=== PATIENT | male | born 1950 | race Caucasian/White ===

== ENCOUNTER → 2019-02-14 11:12 | Outpatient (CLI) | payer MEDICARE, OTHER, SELFPAY ==
[2019-02-14 16:14] LABS: Hemoglobin A1c 6.2 % (4.2-6.3)
[2019-02-14 16:24] LABS: ALB/GLOB Ratio 1.2 RATIO (0.9-2.4); AST(SGOT) 24 U/L (15-37); Alanine Aminotransfer ALT/SGPT 36 U/L (16-61); Albumin, Serum 3.9 g/dL (3.2-5.0); Alkaline Phosphatase 50 U/L (45-117); Anion Gap 6 (5-15); BUN 17 mg/dL (7-18); BUN/Creat Ratio 18.2 RATIO (10-20); Calcium,Total 9.2 mg/dL (8.5-10.1); Chloride 107 mmol/L (98-107); Cholesterol 225 mg/dL (200); Creatinine, Serum 0.93 mg/dL (0.70-1.30); EST Glomerular Filtration Rate 86 mL/min (>60); Est Glom Filt Rate - Afr Amer 104 mL/min (>60); Globulin 3.2 g/dL (2.2-4.2); Glucose 99 mg/dL (74-106); High Density Lipoprotein 44 mg/dL; Potassium 4.3 mmol/L (3.5-5.1); Protein, Total 7.1 g/dL (6.4-8.2); Sodium Level 141 mmol/L (136-145); Triglycerides 154 mg/dL; Very Low Density Lipoprotein 31 mg/dL (5-40)
== END ==
PROVIDERS: Visit Provider Family Medicine
DX: E78.5 Hyperlipidemia, unspecified (principal); R73.01 Impaired fasting glucose
CPT/HCPCS: 36415; 80053; 80061; 83036

== ENCOUNTER → 2020-08-04 09:05 | Outpatient (CLI) | payer MEDICARE, OTHER, SELFPAY ==
[2020-08-04 10:28] LABS: Absolute Lymphocyte Count 1.22 X10^3/uL (0.83-4.51); Absolute Neutrophil Count 3.1 X10^3/uL (2.0-7.7); Basophil# 0.02 X10^3/uL; Basophil% 0.4 % (0-1); Eosinophil# 0.09 X10^3/uL; Eosinophils% 1.8 % (0-5); Hematocrit 45.7 % (40-54); Hemoglobin 14.7 g/dL (13.0-16.5); Lymphocyte # 1.22 X10^3/ul (4.0); Lymphocyte % 24.3 % (19-41); Mean Corp Hgb Conc 32.2 g/dL (32-36); Mean Corpuscular Hgb 32.2 pg (27.0-32.0); Mean Corpuscular Volume 100.2 fL (80-94); Mean Platelet Vol. 9.3 fl (6.2-12.0); Monocyte# 0.54 X10^3/uL; Monocyte% 10.8 % (0-10); NRBC Flagged by Analyzer 0 % (0-5); Neutrophil # 3.14 X10^3/uL (2.7-7.7); Neutrophil % 62.5 % (47-70); Platelet Count 227 K/mm3 (150-450); RBC Distribution Width SD 48.7 fl (35.1-43.9); Red Blood Count 4.56 M/mm3 (4.6-6.2)
[2020-08-04 11:02] LABS: ALB/GLOB Ratio 1.1 RATIO (0.9-2.4); AST(SGOT) 23 U/L (15-37); Alanine Aminotransfer ALT/SGPT 35 U/L (16-61); Albumin, Serum 3.9 g/dL (3.2-5.0); Alkaline Phosphatase 57 U/L (45-117); Anion Gap 6 (5-15); BUN 14 mg/dL (7-18); BUN/Creat Ratio 14.9 RATIO (10-20); Calcium,Total 9.4 mg/dL (8.5-10.1); Chloride 105 mmol/L (98-107); Cholesterol 228 mg/dL (200); Creatinine, Serum 0.94 mg/dL (0.70-1.30); EST Glomerular Filtration Rate 85 mL/min (>60); Est Glom Filt Rate - Afr Amer 102 mL/min (>60); Globulin 3.5 g/dL (2.2-4.2); Glucose 107 mg/dL (74-106); High Density Lipoprotein 41 mg/dL; Potassium 4.2 mmol/L (3.5-5.1); Protein, Total 7.4 g/dL (6.4-8.2); Sodium Level 139 mmol/L (136-145); Thyroid Stim Hormone (TSH) 1.31 uIU/mL (0.358-3.74); Triglycerides 177 mg/dL; Very Low Density Lipoprotein 35 mg/dL (5-40)
== END ==
PROVIDERS: PCP Family Medicine; Visit Provider Family Medicine
DX: R06.00 Dyspnea, unspecified (principal); E78.5 Hyperlipidemia, unspecified; R01.1 Cardiac murmur, unspecified; I10 Essential (primary) hypertension
CPT/HCPCS: 36415; 80053; 80061; 84443; 85025

== ENCOUNTER → 2020-08-11 12:40 | Outpatient (CLI) | payer MEDICARE, OTHER, SELFPAY ==
--- NOTE | 2020-08-11 12:44 | ECHOD_ITS ---
Reason For Study: Worsening Murmur, SOB Procedure This was a 2D Doppler, Color Flow transthoracic echocardiogram. Exam performed in department. Left Ventricle Normal LV size. Left ventricular systolic function is normal. The estimated ejection fraction is 55 %. Right Ventricle Normal RV size. Normal systolic function. Atria The left atrium is mildly enlarged. Normal right atrium. Mitral Valve There is mild mitral annular calcification. Posterior leaflet mitral valve prolapse. Moderately severe (3+) eccentric mitral valve insufficiency. Tricuspid Valve Normal tricuspid valve. Mild (1+) tricuspid valve insufficiency. Pulmonary artery systolic pressure is 44 mmHg. Aortic Valve Normal aortic valve. Trisinus/trileaflet aortic valve. Pericardium/Pleural No pericardial effusion. MMode/2D Measurements & Calculations LVIDd: 5.8 cm IVSd: 1.4 cm Ao root diam: 3.2 cm LVIDs: 3.2 cm LVPWd: 1.1 cm RVDd: 3.5 cm FS: 44.0 % LAV(MOD-bp): 67.8 ml SV(MOD-sp4): 56.0 ml LVAd ap4: 27.5 cm2 LAV(MOD-bp) Indexed: 30.3 ml/m2 EDV(MOD-sp4): 86.4 ml LAV(MOD-sp2): 51.1 ml EDV(sp4-el): 91.6 ml LAV(MOD-sp4): 79.1 ml LVAs ap4: 15.1 cm2 ESV(MOD-sp4): 30.4 ml ESV(sp4-el): 29.6 ml EF(MOD-sp4): 64.9 % EF(sp4-el): 67.6 % SV(sp4-el): 61.9 ml LA dimension(2D): 4.7 cm LA A4 area: 24.8 cm2 RA A4 area: 13.9 cm2 Doppler Measurements & Calculations MV E max wagner: 120.3 cm/sec Lat Peak E' Wagner: 10.4 cm/sec Med Peak E' Wagner: 5.8 cm/sec MV A max wagner: 92.6 cm/sec E/E' lat: 11.6 E/E' med: 20.7 MV E/A: 1.3 MV V2 max: 165.0 cm/sec Ao V2 max: 137.0 cm/sec LV V1 max: 104.7 cm/sec MV max P.9 mmHg Ao max P.5 mmHg LV V1 max P.4 mmHg MV V2 mean: 87.6 cm/sec Ao V2 mean: 84.5 cm/sec MV mean P.6 mmHg Ao mean P.3 mmHg MV V2 VTI: 33.2 cm Ao V2 VTI: 21.4 cm PA V2 max: 109.5 cm/sec TR max wagner: 316.3 cm/sec TR max P.0 mmHg Interpretation Summary Normal LV size. Left ventricular systolic function is normal. The estimated ejection fraction is 55 %. Posterior leaflet mitral valve prolapse. Pulmonary artery systolic pressure is 44 mmHg. Moderately severe (3+) eccentric mitral valve insufficiency. Ordering Physician: Ramiro Moore Referring Physician: Ramiro Moore Performed By: Anne Chirinos, DONG, RVT
--- NOTE | 2020-09-03 10:04 | RAD_ITS ---
STUDY: X-RAY CHEST REASON FOR EXAM: Male, 70 years old. mvp . Mitral valve insufficiency. TECHNIQUE: PA and lateral views of the chest. COMPARISON: None. FINDINGS: The lungs are clear and expanded. There is no demonstrated pleural abnormality. Normal size heart. Normal mediastinum and yossi. Normal visualized pulmonary arteries. There is atherosclerotic tortuosity of the aortic arch and descending thoracic aorta. There are degenerative changes of the visualized thoracic spine. Normal visualized ribs, clavicles, and shoulders. There is no demonstrated abnormality of the visualized soft tissue structures of the upper abdomen. RAD/Chest PA and Lateral IMPRESSION: No acute abnormality is seen. Electronically Signed: Nicanor Lomeli MD at 15:44 EDT , Service support ,
[2020-09-03 11:52] LABS: Absolute Lymphocyte Count 0.92 X10^3/uL (0.83-4.51); Absolute Neutrophil Count 3.6 X10^3/uL (2.0-7.7); Basophil# 0.04 X10^3/uL; Basophil% 0.8 % (0-1); Eosinophil# 0.07 X10^3/uL; Eosinophils% 1.4 % (0-5); Hematocrit 43.8 % (40-54); Hemoglobin 14.4 g/dL (13.0-16.5); Lymphocyte # 0.92 X10^3/ul (4.0); Lymphocyte % 17.8 % (19-41); Mean Corp Hgb Conc 32.9 g/dL (32-36); Mean Corpuscular Hgb 32.5 pg (27.0-32.0); Mean Corpuscular Volume 98.9 fL (80-94); Mean Platelet Vol. 9.4 fl (6.2-12.0); Monocyte# 0.54 X10^3/uL; Monocyte% 10.4 % (0-10); NRBC Flagged by Analyzer 0 % (0-5); Neutrophil # 3.58 X10^3/uL (2.7-7.7); Neutrophil % 69.2 % (47-70); Platelet Count 218 K/mm3 (150-450); RBC Distribution Width CV 12.8 % (11.6-14.6); RBC Distribution Width SD 46.5 fl (35.1-43.9); Red Blood Count 4.43 M/mm3 (4.6-6.2); White Blood Count 5.2 K/mm3 (4.4-11.0)
[2020-09-03 12:46] LABS: Anion Gap 8 (5-15); BUN 15 mg/dL (7-18); BUN/Creat Ratio 15.5 RATIO (10-20); Calcium,Total 9.3 mg/dL (8.5-10.1); Chloride 105 mmol/L (98-107); Creatinine, Serum 0.97 mg/dL (0.70-1.30); EST Glomerular Filtration Rate 82 mL/min (>60); Est Glom Filt Rate - Afr Amer 99 mL/min (>60); Glucose 113 mg/dL (74-106); Potassium 4.2 mmol/L (3.5-5.1); Sodium Level 141 mmol/L (136-145)
== END ==
PROVIDERS: Internal Medicine Cardiovascular Disease; PCP Family Medicine; Referring Provider Family Medicine; Visit Provider Family Medicine
DX: R01.1 Cardiac murmur, unspecified (principal); R06.00 Dyspnea, unspecified
CPT/HCPCS: 36415; 80048; 85025; 93306

== ENCOUNTER 2020-09-15 06:56 | Day surgery (SDC) | payer MEDICARE, OTHER, SELFPAY ==
[2020-09-03 09:03] VITALS: BMI 34.5
[2020-09-12 09:12] VITALS: BMI 34.5
--- NOTE | 2020-09-15 09:38 | CL.D_ITS ---
Patient Name: VALENTE CHILDS Study Date: 09/15/2020 Performing: Ashkan Hernandez MD Ht: 70.07 inches 178 cm : 1950 Wt: 240.3 lbs 109 kg Age: 70 Gender: male BSA: 2.26 PROCEDURE(S) PERFORMED SN62-KFG/COR/LV CLINICAL PROFILE AND INDICATIONS Indications: Valvular Disease Heart Failure: None Stress/Imaging Stress/Image Study Performed: No CAD Presentations: Symptom unlikely to be ischemic. CONCLUSIONS Severe two-vessel coronary artery disease involving the right coronary artery and circumflex artery, mild LAD disease, moderately severe mitral regurgitation with preserved ejection fraction. RECOMMENDATIONS Surgery consult for valvular disease Surgery consult for coronary revascularization DESCRIPTION OF PROCEDURE The patient arrived to the procedure lab. The risks and benefits of the procedure as well as a full d escription of our services here and current unavailability of surgical backup were fully explained to the patient and/or their significant other prior to the catheterization. The Timeout was completed, verifying the correct patient and procedure. The patient's procedural site was prepped and draped in the usual fashion. Local anesthetic was given subcutaneously to right radial region with Lidocaine 2% . Using a modified Seldinger technique, arterial access was obtained via the right radial artery, a 6 Fr sheath was inserted. Left Coronary Artery selective angiography was performed in multiple views u sing a 5 Fr. 4.0 Tuckerman catheter. Right Coronary Artery selective angiography was then performed in mu ltiple views using a 5 Fr. 4.0 Tuckerman catheter. Left Coronary Artery selective angiography was perform ed in multiple views using a 5 Fr. JL3.5 catheter.The arterial sheath was pulled and a TR Band was applied for hemostasis CORONARY ANGIOGRAPHY DOMINANCE: Right Dominant LEFT HEART ASSESSMENT Left Ventricular Ejection Fraction: by LV Gram 60 % Normal LV wall motion Normal Left Ventricular systolic function LEFT MAIN: Mild calcification, 30% distal % Stenosis LEFT ANTERIOR DESCENDING ARTERY: MID LAD: Moderate luminal irregularities up to 50% CIRCUMFLEX ARTERY: OSTIAL CIRC: Proximal irregular 80% stenosis and mild distal disease RIGHT CORONARY ARTERY: MID RCA: 70 % Stenosis VALVE FINDINGS: Mitral Valve Insufficiency - Grade 3 COMPLICATIONS No Complications PROCEDURE MEDICATIONS Versed 1 mg IV Versed 1 mg IV Oxygen: 2 L/min via nasal cannula Baby Aspirin (81mg) 1 Tabs PO @ 09/15/2020 07:11:59 Heparin diluted in 23cc Heparinized saline. Patient given 10cc IA of this solution. 09/15/2020 08:20: 08 Verapamil 2.5mg, Ntg 100mcgs, 2000 units of Heparin diluted in 23cc Heparinized saline. Patient give n 10cc IA of this solution. 09/15/2020 08:20:08 SUMMARY OF HEMODYNAMIC DATA Time AIR REST ECG 07:18:39 ECG 08:04:22 AO 128/75 (99) SA 08:38:00 LV 139/9, 20 08:51:21 LV 132/8, 20 08:51:28 LV 128/12, 22 08:52:13 LVp 134/12, 24 08:52:20 AOp 137/79 (106) 08:52:26 Signed By Ashkan Hernandez MD On 09/15/2020 09:37:11 Ashkan Hernandez MD
== END 2020-09-15 11:00 | disposition home or self-care (01) ==
PROVIDERS: PCP Family Medicine; Referring Provider Internal Medicine Cardiovascular Disease; Visit Provider Internal Medicine Cardiovascular Disease
DX: I25.10 Atherosclerotic heart disease of native coronary artery without angina pectoris (principal); I34.1 Nonrheumatic mitral (valve) prolapse; I34.0 Nonrheumatic mitral (valve) insufficiency; I27.21 Secondary pulmonary arterial hypertension; E78.5 Hyperlipidemia, unspecified; Z86.16 Personal history of COVID-19; E66.9 Obesity, unspecified; Z68.34 Body mass index [BMI] 34.0-34.9, adult; M19.90 Unspecified osteoarthritis, unspecified site; G43.909 Migraine, unspecified, not intractable, without status migrainosus; Z79.82 Long term (current) use of aspirin; Z79.899 Other long term (current) drug therapy
CPT/HCPCS: 71046; 93458; 99152; 99153; J7040; C1769; C1894; Q9967

== ENCOUNTER → 2020-10-31 07:58 | Outpatient (CLI) | payer MEDICARE, OTHER, SELFPAY ==
[2020-10-27 07:49] VITALS: BMI 34.5
--- NOTE | 2020-10-31 08:09 | RAD_ITS ---
STUDY: X-RAY CHEST REASON FOR EXAM: Male, 70 years old. s/p CABG TECHNIQUE: Frontal and lateral views of the chest. COMPARISON: 09/03/2020. FINDINGS: Electronic device over the mid right lung appears external to the patient and was not removed. Normal lung volumes. No infiltrates or effusions. Normal size heart. Previous CABG. Normal mediastinum and yossi. Normal visualized pulmonary arteries. Normal visualized aortic arch and descending thoracic aorta. Normal visualized thoracic spine. Normal visualized ribs, clavicles, and shoulders. There is no demonstrated abnormality of the visualized soft tissue structures of the upper abdomen. RAD/Chest PA and Lateral IMPRESSION: No definite acute or significant abnormality seen. Electronically Signed: Shade Milian MD at 16:43 EDT , Service support ,
[2020-10-31 08:52] LABS: Absolute Lymphocyte Count 0.96 X10^3/uL (0.83-4.51); Absolute Neutrophil Count 3.7 X10^3/uL (2.0-7.7); Basophil# 0.07 X10^3/uL; Basophil% 1.3 % (0-1); Eosinophil# 0.15 X10^3/uL; Eosinophils% 2.8 % (0-5); Hematocrit 40.9 % (40-54); Lymphocyte # 0.96 X10^3/ul (0.83-4.51); Lymphocyte % 17.9 % (19-41); Mean Corp Hgb Conc 31.8 g/dL (32-36); Mean Corpuscular Hgb 32.1 pg (27.0-32.0); Mean Platelet Vol. 8.3 fl (6.2-12.0); Monocyte# 0.48 X10^3/uL; NRBC Flagged by Analyzer 0 % (0-5); Neutrophil # 3.67 X10^3/uL (2.7-7.7); Neutrophil % 68.4 % (47-70); Platelet Count 448 K/mm3 (150-450); RBC Distribution Width CV 13.1 % (11.6-14.6); RBC Distribution Width SD 48.8 fl (35.1-43.9); Red Blood Count 4.05 M/mm3 (4.6-6.2); White Blood Count 5.4 K/mm3 (4.4-11.0)
[2020-10-31 09:20] LABS: Anion Gap 4 (5-15); BUN 17 mg/dL (7-18); BUN/Creat Ratio 14.2 RATIO (10-20); Calcium,Total 9.5 mg/dL (8.5-10.1); Chloride 103 mmol/L (98-107); EST Glomerular Filtration Rate 64 mL/min (>60); Est Glom Filt Rate - Afr Amer 77 mL/min (>60); Glucose 114 mg/dL (74-106); Magnesium 2.6 mg/dL (1.6-2.6); Potassium 4.9 mmol/L (3.5-5.1); Sodium Level 138 mmol/L (136-145)
== END ==
PROVIDERS: PCP Family Medicine; Referring Provider Internal Medicine Cardiovascular Disease; Visit Provider Internal Medicine Cardiovascular Disease
DX: I48.92 Unspecified atrial flutter (principal); E78.5 Hyperlipidemia, unspecified; Z95.1 Presence of aortocoronary bypass graft
CPT/HCPCS: 36415; 71046; 80048; 83735; 85025

== ENCOUNTER → 2020-11-21 12:46 | Outpatient (CLI) | payer MEDICARE, OTHER, SELFPAY ==
[2020-11-11 12:36] VITALS: BMI 32.8
--- NOTE | 2020-11-21 12:52 | CR.HP_ITS ---
CR - History & Physical - General Arrival date:: 11/21/20 Arrival time:: 12:53 Date of Referral:: 11/11/20 Date of CR Evaluation:: 11/21/20 Referring Physician: Dr. Ashkan Hernandez Primary Diagnosis: CABG, Heart Valve repair - History of Present Cardiac Event Onset Date: Enter Onset Date of cardiac illnesses in Comment field below Coronary Artery Bypass Graft:: Yes - 10/13/2020 Heart valve replacement or repair:: Yes Were there any complications?: radial artery thrombus - Sleep Disorder Evaluation Hx of Sleep Apnea: No Do you snore loudly (louder than talking or can be heard through closed doors)?: No Do you often feel tired/ fatigued/ sleepy during daytime?: No Has anyone observed you stop breathing during sleep?: No History of Hypertension (for STOP score): Yes STOP Results: Negative - Medications Home Medications: Ambulatory Orders Medication Instructions Recorded amoxicillin 500 mg capsule 2,000 mg PO ONCE cap 08/26/20 pravastatin 40 mg tablet 40 mg PO QHS #90 tablet 09/03/20 aspirin 81 mg PO DAILY@0800 09/12/20 metoprolol tartrate 100 mg tablet 100 mg PO BID 10/25/20 amiodarone 200 mg tablet 200 mg PO DAILY tab 11/11/20 sumatriptan succinate 50 mg tablet 50 mg PO ONCE PRN 11/11/20 - Allergies Allergies/Adverse Reactions: Allergies codeine Allergy (Intermediate, Verified 11/11/20 12:38) Nausea fentanyl Allergy (Intermediate, Verified 11/11/20 12:38) hypotension Advanced Directives - Advanced Directives Power of Real Estate Director: Yes Living Will: Yes Advance Directives Information Provided: Yes Advance Directives on File: Yes DNR Order?:: No Past Medical History - Covid-19 Screening Fever: No - had covid 04/2020 Unexplained muscle aches: No Current respiratory symptoms: No Upper respiratory infections symptoms: No Gastro-intestinal symptoms: No Vxi-Gxwm-Dvewsg symptoms: No Has tested positive for COVID-19 in last 30 days: No Had contact w/person w/symptoms or Covid-19 (+) last 14 days: No Has High Risk Exposures ID'd by Health dept/Inf Control team: No 65 years or older:: No Lives in Assisted Living facility:: No Has a chronic lung disease or moderate to severe asthma:: No Has a serious heart condition:: Yes Immunocompromised:: No Severely obese (Body Mass Index of 40 or higher):: No Diabetic:: No Has chronic kidney disease undergoing dialysis:: No Has liver disease:: No - Past Medical Illness Medical History: Past Medical History (Last Reviewed 11/11/20 @ 13:[address] Ashkan Hernandez MD) Atherosclerotic heart disease of [place] coronary artery without angina pectoris I25.10 BPH (benign prostatic hyperplasia) N40.0 COVID-19 Onset Date: 04/2020 U07.1 Essential (primary) hypertension I10 History of migraine headaches Z86.69 Hyperlipidemia E78.5 IFG (impaired fasting glucose) R73.01 Migraines G43.909 Non-sustained ventricular tachycardia I47.2 post op CABG 8 beats Nonrheumatic mitral (valve) insufficiency I34.0 Nonrheumatic mitral (valve) prolapse I34.1 Obesity E66.9 Osteoarthritis M19.90 Paroxysmal atrial flutter Onset Date: 10/20/20 I48.92 postop CABG/MVr Secondary pulmonary arterial hypertension I27.21 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 Ashkan Hernandez MD) H/O coronary artery bypass surgery Onset Date: 10/13/20 Z95.1 CABG x 2 SVG-RPDA and SVG-OM1 10/13/20 History of arthroscopy of left knee Onset Date: 2012 Z98.890 History of left heart catheterization Onset Date: 09/15/20 Z98.890 History of mitral valve repair Onset Date: 10/13/20 Z98.890 Annuloplasty, Posterior Neochords and Commissuroplasty; 35 mm Albarran Annuloplasty P1 and P2 neochords History of tonsillectomy Onset Date: 1954 Z. History of total left hip replacement Onset Date: 2012 Z96.642 History of total right hip replacement Onset Date: 2011 Z96.641 - Family History Summary Family History: Family History (Last Reviewed 11/11/20 @ 13:[address] Ashkan Hernandez MD) Mother Parkinson's disease Migraines Father Diabetes AAA (abdominal aortic aneurysm) Brother Diabetes Hypertension CVA (cerebral vascular accident) age 77 cardiac arrest Grandmother Heart disease Grandfather Cancer Prostate Son Migraines Son Migraines Daughter Migraines Social History - Smoking History Smoking Status: Never smoker Hx Tobacco Use: No Hx Smoking Exposure: No - Alcohol Use Alcohol Usage: No - Substance Abuse Hx Substance Use: No - Occupation Occupation (List type of work in comments):: Employed Hours worked per day:: 8 - Hobbies, Recreation, Social Activities Hobbies: Other - golf, cars gardening, fishing Recreational Activities: I am able to engage in all my recreational activities Social Environment - Status Marital Status: - Current Living Arrangements Living Environment:: Family - Children How many children do you have?: 4 Do any of your children live nearby?: Yes - Safety Do you feel safe in your surroundings?: Yes - Assistance Do you need any assistance at home?: none Review of Systems - Review of Systems Hints: Right click = Denies (Slash). Left click = Reports (Resighini) Review of Present Symptoms: Reports: Shortness of Breath with Exertion - mild, PVD - radial artery thrombus S/P Cath, Dizziness/Lightheadedness, Appetite - Normal, Appetite - Special Diet, Sleep - Normal. Denies: Shortness of Breath at Rest, Operative Discomfort, Angina, Wound Healing, Fatigue, Heart Arrhythmia/Irregularities, Sexual Changes - Pain Is Patient Pain Free?: Yes Risk Factor Assessment - Chief Complaint Chief Complaint: CABG, heart valve repair - Vital Signs Pulse Ox: 97 Blood Pressure: 128/70 - Pulse Pulse Rate: 71 Pulse Rhythm: Regular - Diabetes Nutrition Referral for Diabetes: No - Obesity Height: 5 ft 10 in Weight:: 103.873 kg Weight in Pounds: 229.0 lbs Body Mass Index (BMI): 32.8 Nutritional Referral for Obesity: No - Physical Inactivity Physical Inactivity: Reg Exercise 30 min/day - Risk Stratification Risk Guidelines: Moderate Risk: Risk Factor for Smoking, Risk Factor for Dyslipidemia, Risk Factor for Diabetes, Risk Factor for Sedentary Lifestyle, Risk Factor for Depression, Highest Risk: Risk Factor for Obesity, Risk Factor for Hypertension - Family History Family History: Family History (Last Reviewed 11/11/20 @ 13:[address] Ashkan Hernandez MD) Mother Parkinson's disease Migraines Father Diabetes AAA (abdominal aortic aneurysm) Brother Diabetes Hypertension CVA (cerebral vascular accident) Grandmother Heart disease Grandfather Cancer Son Migraines Son Migraines Daughter Migraines Motivation - Motivation to Participate On a scale of 1 to 10, how prepared are you to commit to attending program?: 10 What do you see as barriers to successfully being able to complete the program?: none What do you see as the benefits of succesfully completing the program? In other words, what do you hope to get out of participating in the program?: Stamina Are there issues you are dealing with that will interfere with completing the program?: none Do you have a spouse or signficant other, family or friends who will help support you to complete the program?: family
--- NOTE | 2020-11-21 12:53 | CR.ITP_ITS ---
Diagnosis - General Information Admitting Diagnosis: CABG, heart valve repair Personal Learning Style:: Audio/Visual Barriers to Learning: No Barriers Stage of change r/t lifestyle modifications:: Contemplation Gave educational material for:: Treating Heart Disease, Emotions & Heart Disease, Stress Management & Relaxation, Sleep Disorders & Heart Disease, How The Heart Works, What it means to have Heart Disease, How Coronary Artery Disease is Diagnosed, Heart Procedures, What Heart Medications Do, Risk Factors & Modifications, Living an Active Life, Nutrition - Education/Goals Cardiac Rehabilitation Goals: 1. Maintain the individual as the primary focus of care. 2. To improve the patient's quality of life. 3. Identification of cardiac risk factors and provide cardiac risk factor management. 4. Enhance the psychosocial status of the patient. 5. Reconditioning enough to allow the patient to resume customary activities. 6. Control symptoms of cardiac disease Personal Goals: Initial Assessment: Improve energy level, Participate in home exercise program, Improve muscle strength and endurance Scale for measuring improvement of personal goals: Enter appropriate number in Comments. 2 = Unchanged. 3 = Slightly Better. 4 = Moderate Improvement. 5 = Met my Goal - Diagnosis & Disease Process Outcomes/Goals: Pt IDs own risk factors & lifestyle modifications by Session 10, Verbalizes symptoms of angina & response by session 3., Pt independently manages, Other Additional Outcomes/Goals: Plan/Interventions: Assist Pt to ID & engage in lifestyle modification to reduce CVD risk, Instruct on individual risk factors, Review symptoms of angina & emergency actions, Review secondary diagnosis & identify educational needs., Other see comment 30 day Reassessments:: Not Met 30 day Reassessments:: Not Met 30 day Reassessments:: Not Met 30 day Reassessments:: Not Met Final Reassessments:: Not Met - Safety Referral to Physical Therapy: No Referral to [facility] Case Management: No Fall Risk Assessed:: Yes Assistive Devices:: None Exercise - Initial Assessment - Visit Date of Eval: 11/21/20 - initial eval Mets: Pre-: >7 METS for 30 minutes by discharge - Physician Prescribed Exercise Modalities: Treadmill, Biodyne, Airdyne, NuStep, SciFit Frequency: 3x/week for 12 weeks [36 sessions] Intensity: 60-80% of age predicted maximum heart rate reserve Current METSs:: 3 Target Heart Rate:: 98-128 Resting Blood Pressure: 128/70 EKG Type: SR - Outcomes & Goals Goals:: Verbalizes understanding of THR, RPE & goal METS by session 6, Documents in home exercise log/reports 30 min aerobic 5 day/wk by DC, Demonstrates accurate pulse taking by DC, Other additional outcome/goals: see below - Intervention & Plan Exercise Program Goals: Instruct on personal THR & RPE, Instruct on MET level & personal MET goal, Show patient to take own pulse /validate performance until accurate, Instruct on home exercise, Other additional plan/int - Physical Activity Home Exercise Physical Activity - Home Exercise: Safe Exercise, Warm-up, Self-monitoring, Cool-Down, Home Exercise > 30 min Daily, Sitting Time <3 hours/daily - Outcomes & Goals Outcomes/Goals: Demonstrates correct Warm-up/exercise Cool-Down (S3) if = 2.5 METs, Verbalizes symptoms of exercise intolerance by Session 3 (S3), Demonstrate safe equipment use (S3) & follows exercise prescrition (6), Other: See below - Intervention & Plan Plan/Intervention: Instruct warm-up & cool-down if exercising at > 2 METs, Instruct on symptoms of exercise intolerance & actions to take, Instruct & monitor on saf, Assess intial functional capacity & safety risk, Other See below Nutrition - Initial Assessment - Program Goals Nutrition Program Goals: LDL <100 optimal. 100 - 129 Near optimal. 130 - 159 Borderline High. 160 - 189 High. Total Cholesterol <200 desirable. 200 - 239 Borderline High. >/= 240 High. HDL < 40 Low >/=60 High. Triglycerides <150 desirable. <199 optimal. VlDL 5 - 40. HgbA1C <7%. BMI <25 Patient has diagnosis of Hyperlipidemia (ICD E78)?: Yes - Visit Date of Assessment:: 11/21/20 - initial eval - Cholesterol/Lipids Determine presence & major risk factors that modify LDL goal: Hypertension or hypertensive medication, Low HDL cholesterol <40 mg/dL*, Family history of premature CHD in Male < 55 years: female <65 yearsFa, Age men > 45 years; women >/= 55 years Outcomes/Goals: Pt IDs own risk factors & lifestyle modifications by Session 10, Verbalizes symptoms of angina & response by session 3., Pt independently manages, Other Additional Outcomes/Goals: Intervention/Plan: Advocate for lipid panel cholesterol medication if applicable, Instruct on personal lipid levels & lipid goals/NCEP guidelines, Instruct on cholesterol, Other additional plan/int Referral to dietitian:: No - pt declines - Diabetes (Other Core Measures) Diabetes Type: Not Applicable - Weight Mgt (Other Care) Height: 5 ft 10 in Weight:: 103.873 kg BMI: 32.8 Diagnosis High BMI/Morbid Obesity BMI> 35% ICD-10 Z68: Yes Outcomes/Goals: Pt sets, maintains & shows weight loss goal & trend during rehab, Other additional outcomes/goals Intervention/Plan: Instruct on ideal BMI & set weight loss goal w/patient, Assist pt to ID & incorporate diet changes for weight loss by S9, Refer to Structured Weight Loss program as appropriate, Encourage goal of using 250- 300dcal per session for weight loss, Other additional plan/interventions - Healthy Eating Habits Will attend diet classes:: Yes Outcomes/Goals:: Consume diet rich in vegs,fruits,whole grain/high fiber,fish,lean meat, Limit sat/trans fats,cholesterol & added salts & sugars, Other additional outcome/goals: Intervention/Plan:: Assess current eating habits, Other Additional plan/interventions - Education Gave educational materials for:: Signs & symptoms of hypoglycemia, Signs & symptoms of hyperglycemia, Relate diabetes to coronary artery disease, Healthy eating Nutrition - 30-Day Assessment Nutrition - 60-Day Assessment Nutrition - 90-Day Assessment Nutrition - Final Assessment Medical - Initial Assessment - Visit Date of Eval: 11/21/20 - initial eval - Medication Compliance Preventative Medication(s):: Aspirin, Statin/lipid, Beta elma H/O mental health issues: depression, anxiety, or addiction?: No Doesn?t believe in the benefits of treatment?: No Believes medications are unnecessary or harmful?: No Has a concern about medication side effects?: No Expresses concern over the cost of medications?: No Outcomes/Goals: Verbalizes medications,desired effect & common side effects @ DC, Pt self-reports following medication regimen, Keeps card in wallet w/medications listed by DC, Other additional outcome/goals: Interventions/plans: Instruct on medication effects & side effects, Review medication list w/patient every two weeks, Instruct importance of taking meds as ordered & assist problem solving, Other additional - Tobacco Use Tobacco Use: Non-smoker Do you use smokeless tobacco?: No - Hypertension Hypertension Diagnosis:: Hypertension ICD-10 I10 Resting Blood Pressure:: 128/70 [place] [employer] Hypertension Guidelines: [place] [employer] Hypertension Guidelines. Normal BP Less than 120/80. Elevated BP 120/80. Hypertension Stage 1: BP 130-139/80-89. Hypertesnion Stage 2: BP 140 or higher/90 or higher. Hypertension Crisis: BP higher than 180/120 Outcomes/Goals: Able to verbalize/achieve optimal blood pressure <130/80, Incorporates diet changes & exercise for blood pressure control by DC, Other additional outcomes/goals Interventions/plan: Instruct on optimal blood pressure, hypertension & medications, Instruct on effects of sodium, alcohol, stress, exercise &hypertension, Other additional plan/interventions - Tobacco Cessation Referral Smoking Cessation Referral:: No Individual Education/Counseling:: No Education Schedule Given:: Yes Medical- 30-Day Assessment Medical- 60-Day Assessment Medical- 90-Day Assessment Medical - Final Assessment Psychosocial - Initial Assess - VIsit Date of Eval: 11/21/20 - initial eval Not Applicable: No History of previous Mental disease:: No - Outcomes/Goals: See list Psychosocial Outcomes/Goals:: ID's personal stressors & 2 strategies to manage stress by discharge, Other Additional outcome/goals: - Intervention/Plan: See List Interventions/Plan:: Assess stressors,coping strategies & signs of derpression on admission, Instruct/assist pt to develop coping & personal stress Mgt st rategies, Refer to Behavioral Health if appropriate, Refer to Physician if appropriate, Instruct patient to recognize signs & symptoms of depression, Instruct patient to recog, Other additional plan/intervention Psychosocial - 30-Day Assess Psychosocial - 60-Day Assess Psychosocial - 90-Day Assess Psychosocial - Final Assessmen Patient Health Questionnaire Initial Assessment 1. Little interest or pleasure in doing things: Not at all 2. Feeling down, depressed, or hopeless: Not at all 3. Trouble falling or staying asleep, or sleeping too much: Not at all 4. Feeling tired or having little energy: Not at all 5. Poor appetite or overeating: Not at all 6. Feeling bad about yourself -- or that you are a failure or have let yourself or your family down: Not at all 7. Trouble concentrating on things, such as reading the newspaper or watching television: Not at all 8. Moving or speaking so slowly that other people could have noticed. Or the opposite - being so fidgety or restless that you have been moving around a lot more than usual: Not at all 9. Thoughts that you would be better off , or of hurting yourself in some way: Not at all How difficult have these problems made it for you to do your work, take care of things at home, or get along with other people?: Not difficult at all Total Score: 0 JOSIANE-Q SV Test - Statements CAD is a disease of the arteries in the heart: False Examples of risk factors for heart disease: True Angina is chest pain or discomfort: True The benefits of resistance training include: True Eating more meat and dairy products: False Anti-platelet medications such as aspirin are important: True The only effective way to manage stress: False An exercise warm-up slowly increases heart rate: True Prepared, processed foods usually have high sodium: True Depression is common after a heart attack: True The statin medications lower cholesterol: True To control blood pressure, lower the amount of sodium: True If someone gets chest discomfort during walking: False Transfats are partially hydrogenated vegetable oils: True Sleep apnea that is not treated increases the risk: False To control cholesterol, one should become a vegetarian: False Someone knows if he/she is exercising at the right level: True Diabetes cannot be prevented with exercise & health eating: I Don't Know Stress is a large risk for heart attack: True A diet that can help lower blood pressure is rich in: True - Total Score Total Correct Responses: 19 Self-Efficacy Initial Assessment We would like to know how confident you are in doing certain activities. Please select your confidence level for:: Select your confidence level for the following using the scale 1-10 where 1 is not at all confident and 10 is totally confident. Your score is the average of all 6 responses. Fatigue: How confident are you that you can keep the fatigue caused by your disease from interfering with the things you want to do? Select Number: 9 Physical Discomfort or Pain: How confident are you that you can keep the physical discomfort or pain of your disease from interfering with the things you want to do? Select Number: 9 Emotional Distress: How confident are you that you can keep the emotional distress caused by your disease from interfering with the things you want to do? Select Number: 10 Other Symptoms or Health Problems: How confident are you that you can keep other symptoms or health problems from interfering with the things you want to do? Select Number: 9 Different Tasks and Activities: How confident are you that you can do the different tasks and activities needed to manage your health condition so as to reduce your need to see a doctor? Select Number: 8 Medication: How confident are you that you can do things other than just taking medication to reduce how much your illness affects your everyday life? Select Number: 9 Total Score:: 9 Nutrition Survey - Nutrition Survey Initial Have you lost >10 lbs over the past 2 months without trying?: Yes Are you following a special diet at home for diabetes, low fat, or low salt?: No Are you interested in meeting with a dietitian for help understanding your diet?: No Do you eat less than 3 meals a day?: No Do you eat fatty meats (galvez, sausage, ribs, etc), fried foods, desserts, large amounts of salad dressings, margarine, butter, or cheese most days?: No Do you have food allergies? [Enter types in comment field]: Yes Do you eat in restaurants more than 3 times a week?: No Do you season food with salt, seasoning salt, or garlic salt?: No Do you used canned, boxed, frozen meals, or soups, seasoning packets?: No Total Score:: 2
[2020-11-21 13:53] VITALS: BP 128/70; PULSE 71; O2SAT 97; BMI 32.8
== END ==
PROVIDERS: PCP Family Medicine; Referring Provider Internal Medicine Cardiovascular Disease; Visit Provider Internal Medicine Cardiovascular Disease
DX: I10 Essential (primary) hypertension (principal); Z95.5 Presence of coronary angioplasty implant and graft

== ENCOUNTER 2020-12-03 08:00 | Outpatient (RCR) | payer MEDICARE, OTHER, SELFPAY ==
[2020-11-21 13:53] VITALS: BMI 32.8
== END 2020-12-03 23:59 ==
LOC: CR 08:00
PROVIDERS: PCP Family Medicine; Referring Provider Internal Medicine Cardiovascular Disease; Visit Provider Internal Medicine Cardiovascular Disease
DX: I74.2 Embolism and thrombosis of arteries of the upper extremities (principal); I48.92 Unspecified atrial flutter; I25.10 Atherosclerotic heart disease of native coronary artery without angina pectoris; I34.1 Nonrheumatic mitral (valve) prolapse; I34.0 Nonrheumatic mitral (valve) insufficiency; Z95.1 Presence of aortocoronary bypass graft; Z98.890 Other specified postprocedural states; I27.21 Secondary pulmonary arterial hypertension; I10 Essential (primary) hypertension; E78.5 Hyperlipidemia, unspecified
CPT/HCPCS: 93798

== ENCOUNTER → 2020-12-05 07:38 | Outpatient (CLI) | payer MEDICARE, OTHER, SELFPAY ==
[2020-11-21 13:53] VITALS: BMI 32.8
--- NOTE | 2020-12-05 08:39 | ECHOCS_ITS ---
Reason For Study: S/P MV repair Procedure This was a 2D Doppler, Color Flow transthoracic echocardiogram. The study was technically difficult. Contrast injection was performed. Exam performed in department. Left Ventricle Normal LV size. Left ventricular systolic function is normal. The estimated ejection fraction is 55 %. Stage 1 diastolic dysfunction. No regional wall motion abnormalities noted. Right Ventricle Normal RV size. Normal systolic function. Atria Normal left atrium. Normal right atrium. Mitral Valve Status post mitral valve repair. Possible strand noted on the mitral valve repair apparatus. Tricuspid Valve Normal tricuspid valve. Great Vessels Normal aortic root. The pulmonary artery is normal size. Normal inferior vena cava. Pericardium/Pleural No pericardial effusion. Medication 22 gauge I.V. with prn adaptor inserted into left arm. Diluted definity 2.5ml given slow IV push to enhance endocardial definition. MMode/2D Measurements & Calculations LVIDd: 4.9 cm IVSd: 1.00 cm Ao root diam: 3.8 cm LVIDs: 3.5 cm LVPWd: 1.0 cm RVDd: 3.8 cm FS: 27.4 % LAV(MOD-bp): 55.5 ml LVAd ap4: 40.5 cm2 LVAd ap2: 35.3 cm2 LAV(MOD-bp) Indexed: 25.0 ml/m2 LVLd ap4: 8.6 cm LVLd ap2: 8.4 cm LAV(MOD-sp2): 51.9 ml EDV(MOD-sp4): 153.7 ml EDV(MOD-sp2): 118.9 ml LAV(MOD-sp4): 55.9 ml EDV(sp4-el): 161.8 ml EDV(sp2-el): 125.6 ml LVAs ap4: 28.2 cm2 LVAs ap2: 24.2 cm2 LVLs ap4: 7.9 cm LVLs ap2: 7.6 cm ESV(MOD-sp4): 82.0 ml ESV(MOD-sp2): 61.4 ml ESV(sp4-el): 85.0 ml ESV(sp2-el): 65.4 ml EF(MOD-sp4): 46.7 % EF(MOD-sp2): 48.3 % EF(sp4-el): 47.4 % SV(MOD-sp4): 71.7 ml SV(MOD-sp2): 57.5 ml SV(sp4-el): 76.7 ml LA dimension(2D): 4.5 cm LA A4 area: 19.4 cm2 RA A4 area: 16.3 cm2 Time Measurements MV dec time: 0.27 sec Doppler Measurements & Calculations MV E max wagner: 117.9 cm/sec Lat Peak E' Wagner: 5.2 cm/sec Med Peak E' Wagner: 4.1 cm/sec MV A max wagner: 135.7 cm/sec E/E' lat: 22.8 E/E' med: 29.0 MV E/A: 0.87 MV V2 max: 126.0 cm/sec Ao V2 max: 105.0 cm/sec LV V1 max: 102.0 cm/sec MV max P.4 mmHg Ao max P.4 mmHg LV V1 max P.2 mmHg MV V2 mean: 79.5 cm/sec MV mean P.0 mmHg MV V2 VTI: 46.2 cm PA V2 max: 117.3 cm/sec TR max wagner: 199.1 cm/sec MV P1/2t-pr_phl: 79.6 msec TR max P.9 mmHg ECHO/Echo Complete W/ Contrast Interpretation Summary Status post mitral valve repair. Normal LV size. Left ventricular systolic function is normal. The estimated ejection fraction is 55 %. Stage 1 diastolic dysfunction. Possible strand noted on the mitral valve repair apparatus Contrast injection was performed. Ordering Physician: Ashkan Hernandez Referring Physician: WEST REINOSO Performed By: Annalisa Thapa, RDCS, RVT
== END ==
PROVIDERS: PCP Family Medicine; Referring Provider Internal Medicine Cardiovascular Disease; Visit Provider Internal Medicine Cardiovascular Disease
DX: I34.0 Nonrheumatic mitral (valve) insufficiency (principal); I74.2 Embolism and thrombosis of arteries of the upper extremities; I48.92 Unspecified atrial flutter; I25.10 Atherosclerotic heart disease of native coronary artery without angina pectoris; Z95.1 Presence of aortocoronary bypass graft; Z98.890 Other specified postprocedural states; I27.21 Secondary pulmonary arterial hypertension; E78.5 Hyperlipidemia, unspecified; I10 Essential (primary) hypertension; I47.1 Supraventricular tachycardia
CPT/HCPCS: 93306; Q9957; A4216; C8929; J3490

== ENCOUNTER 2021-01-02 08:00 | Outpatient (RCR) | payer MEDICARE, OTHER, SELFPAY ==
[2020-11-21 13:53] VITALS: BMI 32.8
--- NOTE | 2020-12-22 10:14 | CR.ITP_ITS ---
Diagnosis Exercise - 30-day Assessment - Visit Date of Eval: 12/22/20 Session #:: 12 - Missed two scheduled sessions due to preplanned vacation. - Physician Prescribed Exercise Modalities: Treadmill, Airdyne, NuStep Frequency: 3x/week for 12 weeks [36 sessions] Intensity: 60-80% of age predicted maximum heart rate reserve Current METSs:: 4.5 increased from 3.0 Target Heart Rate:: 98-128 Current RPE:: 11-13 Maximum Excercise HR:: 97 Resting Blood Pressure: 132/68 Maximum Exercise Blood Pressure: 138/84 EKG Type: NSR to sinus tach with isolated PAC. - Outcomes & Goals Goals:: Verbalizes understanding of THR, RPE & goal METS by session 6, Documents in home exercise log/reports 30 min aerobic 5 day/wk by DC, Demonstrates accurate pulse taking by DC - Intervention & Plan Exercise Program Goals: Instruct on personal THR & RPE, Instruct on MET level & personal MET goal, Show patient to take own pulse /validate performance until accurate, Instruct on home exercise - 30-day Reassessments 30 day Reassessments:: Progressing - Physical Activity Home Exercise Physical Activity - Home Exercise: Safe Exercise, Warm-up, Self-monitoring, Cool-Down, Home Exercise > 30 min Daily, Sitting Time <3 hours/daily - Outcomes & Goals Outcomes/Goals: Demonstrates correct Warm-up/exercise Cool-Down (S3) if = 2.5 METs, Verbalizes symptoms of exercise intolerance by Session 3 (S3), Demonstrate safe equipment use (S3) & follows exercise prescrition (6) - Intervention & Plan Plan/Intervention: Instruct warm-up & cool-down if exercising at > 2 METs, Instruct on symptoms of exercise intolerance & actions to take, Instruct & monitor on saf, Assess intial functional capacity & safety risk - 30-day Reassessments 30 day Reassessments:: Progressing Nutrition - Initial Assessment Nutrition - 30-Day Assessment - Program Goals Nutrition Program Goals: LDL <100 optimal. 100 - 129 Near optimal. 130 - 159 Borderline High. 160 - 189 High. Total Cholesterol <200 desirable. 200 - 239 Borderline High. >/= 240 High. HDL < 40 Low >/=60 High. Triglycerides <150 desirable. <199 optimal. VlDL 5 - 40. HgbA1C <7%. BMI <25 Patient has diagnosis of Hyperlipidemia (ICD E78)?: Yes - Visit Date of Assessment:: 12/22/20 Session #:: 12 - Cholesterol/Lipids Triglycerides (mg/dL): 177 Total Cholesterol (mg/dL): 228 LDL Cholesterol (mg/dL): 152 HDL Cholesterol (mg/dL): 41 Determine presence & major risk factors that modify LDL goal: Hypertension or hypertensive medication, Family history of premature CHD in Male < 55 years: female <65 yearsFa, Age men > 45 years; women >/= 55 years Outcomes/Goals: Pt IDs own risk factors & lifestyle modifications by Session 10, Verbalizes symptoms of angina & response by session 3., Pt independently manages Intervention/Plan: Instruct on personal lipid levels & lipid goals/NCEP guidelines, Instruct on cholesterol Referral to dietitian:: Yes - Medical Nutrition Therapy 30-day Reassessments:: Progressing - Diabetes (Other Core Measures) Diabetes Type: Not Applicable - Weight Mgt (Other Care) Not Applicable: Yes Height: 5 ft 10 in Weight:: 232 lb BMI: 33.3 Diagnosis Overweight/Obesity BMI> 30% ICD-10 E66: Yes Diagnosis High BMI/Morbid Obesity BMI> 35% ICD-10 Z68: No Outcomes/Goals: Pt sets, maintains & shows weight loss goal & trend during rehab Intervention/Plan: Instruct on ideal BMI & set weight loss goal w/patient, Assist pt to ID & incorporate diet changes for weight loss by S9, Encourage goal of using 250-300dcal per session for weight loss 30 day Reassessments:: Progressing - Healthy Eating Habits Will attend diet classes:: Yes Outcomes/Goals:: Consume diet rich in vegs,fruits,whole grain/high fiber,fish,lean meat, Limit sat/trans fats,cholesterol & added salts & sugars Intervention/Plan:: Assess current eating habits 30-day Reassessments:: Progressing Nutrition - 60-Day Assessment Nutrition - 90-Day Assessment Nutrition - Final Assessment Medical - Initial Assessment Medical- 30-Day Assessment - Visit Date of Eval: 12/22/20 Session #:: 12 - Medication Compliance Preventative Medication(s):: Aspirin, Statin/lipid, Beta elma H/O mental health issues: depression, anxiety, or addiction?: No Doesn?t believe in the benefits of treatment?: No Believes medications are unnecessary or harmful?: No Has a concern about medication side effects?: No Expresses concern over the cost of medications?: No Outcomes/Goals: Verbalizes medications,desired effect & common side effects @ DC, Pt self-reports following medication regimen, Keeps card in wallet w/medications listed by DC Interventions/plans: Instruct on medication effects & side effects, Review medication list w/patient every two weeks, Instruct importance of taking meds as ordered & assist problem solving 30-day Reassessments:: Progressing - Tobacco Use Tobacco Use: Non-smoker - Hypertension Hypertension Diagnosis:: Hypertension ICD-10 I10 Resting Blood Pressure:: 132/68 [place] [employer] Hypertension Guidelines: [place] [employer] Hypertension Guidelines. Normal BP Less than 120/80. Elevated BP 120/80. Hypertension Stage 1: BP 130-139/80-89. Hypertesnion Stage 2: BP 140 or higher/90 or higher. Hypertension Crisis: BP higher than 180/120 Peak Exercise Blood Pressure:: 138/84 Outcomes/Goals: Able to verbalize/achieve optimal blood pressure <130/80, Incor porates diet changes & exercise for blood pressure control by DC Interventions/plan: Instruct on optimal blood pressure, hypertension & medications, Instruct on effects of sodium, alcohol, stress, exercise &hypertension 30 day Reassessments:: Progressing - Tobacco Cessation Referral Smoking Cessation Referral:: No Individual Education/Counseling:: No Education Schedule Given:: Yes Medical- 60-Day Assessment Medical- 90-Day Assessment Medical - Final Assessment Psychosocial - Initial Assess Psychosocial - 30-Day Assess - VIsit Date of Eval: 12/22/20 Session #:: 12 Not Applicable: Yes History of previous Mental disease:: No - Psychosocial Test Tool Used:: PHQ-9 Questionnaire phq-9 Severity: Severity. 1-4 Minimal Depression. 5-9 Mild Depression. 10-14 Moderate Depression. 15-19 Moderately Sever Depression. 20-27 Severe Depression. Rule: - Referral to Behavioral Health PS - Interventions: Yes Attend Stress Management Classes, No Referral to Behavioral Health if PHQ-9 score >9:, No Referral to [facility], No Referral to Physician if PHQ-9 if score is 5-9: - Outcomes/Goals: See list Psychosocial Outcomes/Goals:: ID's personal stressors & 2 strategies to manage stress by discharge - Intervention/Plan: See List Interventions/Plan:: Assess stressors,coping strategies & signs of derpression on admission, Instruct/assist pt to develop coping & personal stress Mgt strategies, Instruct patient to recognize signs & symptoms of depression, Instruct patient to recog - 30-day Reassessments: 30 day Reassessments:: Progressing Psychosocial - 60-Day Assess Psychosocial - 90-Day Assess Psychosocial - Final Assessmen Patient Health Questionnaire 30-Day Re-eval Assessment 1. Little interest or pleasure in doing things: Not at all 2. Feeling down, depressed, or hopeless: Not at all 3. Trouble falling or staying asleep, or sleeping too much: Not at all 4. Feeling tired or having little energy: Not at all 5. Poor appetite or overeating: Not at all 6. Feeling bad about yourself -- or that you are a failure or have let yourself or your family down: Not at all 7. Trouble concentrating on things, such as reading the newspaper or watching television: Not at all 8. Moving or speaking so slowly that other people could have noticed. Or the opposite - being so fidgety or restless that you have been moving around a lot more than usual: Not at all 9. Thoughts that you would be better off , or of hurting yourself in some way: Not at all How difficult have these problems made it for you to do your work, take care of things at home, or get along with other people?: Not difficult at all Total Score: 0 Self-Efficacy 30-Day Re-eval Assessment We would like to know how confident you are in doing certain activities. Please select your confidence level for:: Select your confidence level for the following using the scale 1-10 where 1 is not at all confident and 10 is totally confident. Your score is the average of all 6 responses. Fatigue: How confident are you that you can keep the fatigue caused by your disease from interfering with the things you want to do? Select Number: 9 Physical Discomfort or Pain: How confident are you that you can keep the physical discomfort or pain of your disease from interfering with the things you want to do? Select Number: 10 Emotional Distress: How confident are you that you can keep the emotional distress caused by your disease from interfering with the things you want to do? Select Number: 10 Other Symptoms or Health Problems: How confident are you that you can keep other symptoms or health problems from interfering with the things you want to do? Select Number: 9 Different Tasks and Activities: How confident are you that you can do the [facility] tasks and activities needed to manage your health condition so as to reduce your need to see a doctor? Select Number: 9 Medication: How confident are you that you can do things other than just taking medication to reduce how much your illness affects your everyday life? Select Number: 10 Total Score:: 9 Nutrition Survey
[2020-12-22 10:26] VITALS: BP 132/68; BP 138/84; BMI 33.3
== END 2021-01-03 23:59 ==
LOC: CR 08:00
PROVIDERS: PCP Family Medicine; Referring Provider Internal Medicine Cardiovascular Disease; Visit Provider Internal Medicine Cardiovascular Disease
DX: I74.2 Embolism and thrombosis of arteries of the upper extremities (principal); I48.92 Unspecified atrial flutter; I25.10 Atherosclerotic heart disease of native coronary artery without angina pectoris; I34.1 Nonrheumatic mitral (valve) prolapse; I34.0 Nonrheumatic mitral (valve) insufficiency; Z95.1 Presence of aortocoronary bypass graft; Z98.890 Other specified postprocedural states; I27.21 Secondary pulmonary arterial hypertension; I10 Essential (primary) hypertension; E78.5 Hyperlipidemia, unspecified
CPT/HCPCS: 93798

== ENCOUNTER 2021-02-02 08:00 | Outpatient (RCR) | payer MEDICARE, OTHER, SELFPAY ==
[2020-11-21 13:53] VITALS: BMI 32.8
[2020-12-22 10:26] VITALS: BMI 33.3
[2021-01-04 00:34] VITALS: BP 132/68; BP 138/84
--- NOTE | 2021-01-21 10:40 | CR.ITP_ITS ---
Diagnosis Exercise - 60-day Assessment - Visit Date of Eval: 01/21/21 Session #:: 23 - Physician Prescribed Exercise Modalities: Treadmill, Airdyne, NuStep Frequency: 3x/week for 12 weeks [36 sessions] Intensity: 60-80% of age predicted maximum heart rate reserve Current METSs:: 6.5 INCREASE FROM 4.5 Target Heart Rate:: 98-128 Current RPE:: 13-14 Maximum Excercise HR:: 107 Resting Blood Pressure: 108/54 Maximum Exercise Blood Pressure: 148/84 EKG Type: NSR to sinus tach with isolated PVCs Current Physical Activity or Exercising minutes: 30-45 - Outcomes & Goals Goals:: Verbalizes understanding of THR, RPE & goal METS by session 6, Documents in home exercise log/reports 30 min aerobic 5 day/wk by DC, Demonstrates accurate pulse taking by DC - Intervention & Plan Exercise Program Goals: Instruct on personal THR & RPE, Instruct on MET level & personal MET goal, Instruct on home exercise - 30-day Reassessments 30 day Reassessments:: Met - Physical Activity Home Exercise Physical Activity - Home Exercise: Safe Exercise, Warm-up, Self-monitoring, Cool-Down, Home Exercise > 30 min Daily, Sitting Time <3 hours/daily - Outcomes & Goals Outcomes/Goals: Demonstrates correct Warm-up/exercise Cool-Down (S3) if = 2.5 METs, Verbalizes symptoms of exercise intolerance by Session 3 (S3), Demonstrate safe equipment use (S3) & follows exercise prescrition (6) - Intervention & Plan Plan/Intervention: Instruct warm-up & cool-down if exercising at > 2 METs, Instruct on symptoms of exercise intolerance & actions to take, Instruct & monitor on saf, Assess intial functional capacity & safety risk - 30-day Reassessments 30 day Reassessments:: Met Nutrition - Initial Assessment Nutrition - 30-Day Assessment Nutrition - 60-Day Assessment - Program Goals Nutrition Program Goals: LDL <100 optimal. 100 - 129 Near optimal. 130 - 159 Borderline High. 160 - 189 High. Total Cholesterol <200 desirable. 200 - 239 Borderline High. >/= 240 High. HDL < 40 Low >/=60 High. Triglycerides <150 desirable. <199 optimal. VlDL 5 - 40. HgbA1C <7%. BMI <25 Patient has diagnosis of Hyperlipidemia (ICD E78)?: Yes - Cholesterol/Lipids Triglycerides (mg/dL): 177 Total Cholesterol (mg/dL): 228 LDL Cholesterol (mg/dL): 152 HDL Cholesterol (mg/dL): 41 Determine presence & major risk factors that modify LDL goal: Hypertension or hypertensive medication, Family history of premature CHD in Male < 55 years: female <65 yearsFa, Age men > 45 years; women >/= 55 years Outcomes/Goals: Pt IDs own risk factors & lifestyle modifications by Session 10, Verbalizes symptoms of angina & response by session 3., Pt independently manages Intervention/Plan: Instruct on personal lipid levels & lipid goals/NCEP guidelines, Instruct on cholesterol Referral to dietitian:: Yes - Diabetes (Other Core Measures) Diabetes Type: Not Applicable - Weight Mgt (Other Care) Not Applicable: Yes Height: 5 ft 10 in Weight:: 233 lb - Patient declined Nutritional Services BMI: 33.4 Diagnosis Overweight/Obesity BMI> 30% ICD-10 E66: Yes Diagnosis High BMI/Morbid Obesity BMI> 35% ICD-10 Z68: Yes Outcomes/Goals: Pt sets, maintains & shows weight loss goal & trend during rehab Intervention/Plan: Instruct on ideal BMI & set weight loss goal w/patient, Assist pt to ID & incorporate diet changes for weight loss by S9, Encourage goal of using 250-300dcal per session for weight loss 30 day Reassessments:: Not Met - Healthy Eating Habits Will attend diet classes:: Yes Outcomes/Goals:: Consume diet rich in vegs,fruits,whole grain/high fiber,fish,lean meat, Limit sat/trans fats,cholesterol & added salts & sugars Intervention/Plan:: Assess current eating habits 30-day Reassessments:: Progressing - Education Gave educational materials for:: Healthy eating Nutrition - 90-Day Assessment Nutrition - Final Assessment Medical - Initial Assessment Medical- 30-Day Assessment Medical- 60-Day Assessment - Visit Date of Eval: 01/21/21 Session #:: 23 - Medication Compliance Preventative Medication(s):: Aspirin, Statin/lipid, Beta elma H/O mental health issues: depression, anxiety, or addiction?: No Doesn?t believe in the benefits of treatment?: No Believes medications are unnecessary or harmful?: No Has a concern about medication side effects?: No Expresses concern over the cost of medications?: No Outcomes/Goals: Verbalizes medications,desired effect & common side effects @ DC, Pt self-reports following medication regimen, Keeps card in wallet w/medications listed by DC Interventions/plans: Instruct on medication effects & side effects, Review medication list w/patient every two weeks, Instruct importance of taking meds as ordered & assist problem solving 30-day Reassessments:: Progressing - Tobacco Use Tobacco Use: Non-smoker - Hypertension Hypertension Diagnosis:: Hypertension ICD-10 I10 Resting Blood Pressure:: 108/54 [place] [employer] Hypertension Guidelines: [place] [employer] Hypertension Guidelines. Normal BP Less than 120/80. Elevated BP 120/80. Hypertension Stage 1: BP 130-139/80-89. Hypertesnion Stage 2: BP 140 or higher/90 or higher. Hypertension Crisis: BP higher than 180/120 Peak Exercise Blood Pressure:: 148/84 Outcomes/Goals: Able to verbalize/achieve optimal blood pressure <130/80, Incorporates diet changes & exercise for blood pressure control by DC Interventions/plan: Instruct on optimal blood pressure, hypertension & medications, Instruct on effects of sodium, alcohol, stress, exercise &hypertension 30 day Reassessments:: Met - Tobacco Cessation Referral Smoking Cessation Referral:: No Individual Education/Counseling:: No Education Schedule Given:: Yes Medical- 90-Day Assessment Medical - Final Assessment Psychosocial - Initial Assess Psychosocial - 30-Day Assess Psychosocial - 60-Day Assess - VIsit Date of Eval: 01/21/21 Session #:: 23 Not Applicable: Yes History of previous Mental disease:: No - Psychosocial Test Tool Used:: PHQ-9 Questionnaire phq-9 Severity: Severity. 1-4 Minimal Depression. 5-9 Mild Depression. 10-14 Moderate Depression. 15-19 Moderately Sever Depression. 20-27 Severe D epression. Rule: - Referral to Behavioral Health PS - Interventions: Yes Attend Stress Management Classes, No Referral to Behavioral Health if PHQ-9 score >9:, No Referral to [facility], No Referral to Physician if PHQ-9 if score is 5-9: - Outcomes/Goals: See list Psychosocial Outcomes/Goals:: ID's personal stressors & 2 strategies to manage stress by discharge - Intervention/Plan: See List Interventions/Plan:: Assess stressors,coping strategies & signs of derpression on admission, Instruct/assist pt to develop coping & personal stress Mgt strategies, Instruct patient to recognize signs & symptoms of depression, Instruct patient to recog - 30-day Reassessments: 30 day Reassessments:: Progressing Psychosocial - 90-Day Assess Psychosocial - Final Assessmen Patient Health Questionnaire 60-Day Re-eval Assessment 1. Little interest or pleasure in doing things: Not at all 2. Feeling down, depressed, or hopeless: Not at all 3. Trouble falling or staying asleep, or sleeping too much: Not at all 4. Feeling tired or having little energy: Not at all 5. Poor appetite or overeating: Not at all 6. Feeling bad about yourself -- or that you are a failure or have let yourself or your family down: Not at all 7. Trouble concentrating on things, such as reading the newspaper or watching television: Not at all 8. Moving or speaking so slowly that other people could have noticed. Or the opposite - being so fidgety or restless that you have been moving around a lot more than usual: Not at all Total Score: 0 Self-Efficacy 60-Day Re-eval Assessment We would like to know how confident you are in doing certain activities. Please select your confidence level for:: Select your confidence level for the following using the scale 1-10 where 1 is not at all confident and 10 is totally confident. Your score is the average of all 6 responses. Fatigue: How confident are you that you can keep the fatigue caused by your disease from interfering with the things you want to do? Select Number: 9 Physical Discomfort or Pain: How confident are you that you can keep the physical discomfort or pain of your disease from interfering with the things you want to do? Select Number: 10 Emotional Distress: How confident are you that you can keep the emotional distress caused by your disease from interfering with the things you want to do? Select Number: 10 Other Symptoms or Health Problems: How confident are you that you can keep other symptoms or health problems from interfering with the things you want to do? Select Number: 10 Different Tasks and Activities: How confident are you that you can do the different tasks and activities needed to manage your health condition so as to reduce your need to see a doctor? Select Number: 10 Medication: How confident are you that you can do things other than just taking medication to reduce how much your illness affects your everyday life? Select Number: 10 Total Score:: 9 Nutrition Survey
[2021-01-21 10:53] VITALS: BP 108/54; BP 148/84; BMI 33.4
== END 2021-02-03 23:59 ==
LOC: CR 08:00
PROVIDERS: PCP Family Medicine; Referring Provider Internal Medicine Cardiovascular Disease; Visit Provider Internal Medicine Cardiovascular Disease
DX: I74.2 Embolism and thrombosis of arteries of the upper extremities (principal); I48.92 Unspecified atrial flutter; I25.10 Atherosclerotic heart disease of native coronary artery without angina pectoris; I34.1 Nonrheumatic mitral (valve) prolapse; I34.0 Nonrheumatic mitral (valve) insufficiency; Z95.1 Presence of aortocoronary bypass graft; Z98.890 Other specified postprocedural states; I27.21 Secondary pulmonary arterial hypertension; I10 Essential (primary) hypertension; E78.5 Hyperlipidemia, unspecified
CPT/HCPCS: 93798

== ENCOUNTER 2021-02-23 08:00 | Outpatient (RCR) | payer MEDICARE, OTHER, SELFPAY ==
[2021-01-21 10:53] VITALS: BMI 33.4
[2021-02-04 00:36] VITALS: BP 108/54; BP 148/84; BMI 32.8
--- NOTE | 2021-02-20 07:00 | CR.ITP_ITS ---
Diagnosis Exercise - Final/Discharge - Visit Date of Eval: 02/20/21 Session #:: 34 - Physician Prescribed Exercise Modalities: Treadmill, Biodyne - Replaced with SciFit Lateral [place], Airdyne Frequency: 3x/week for 12 weeks [36 sessions] Intensity: 60-80% of age predicted maximum heart rate reserve Current METSs:: 7.5 Target Heart Rate:: 98-128 Current RPE:: 13-14 Maximum Excercise HR:: 120 Resting Blood Pressure: 128/84 Maximum Exercise Blood Pressure: 148/86 EKG Type: NSR to sinus tach with rare PVC Current Physical Activity or Exercising minutes: 40-45 - Outcomes & Goals Goals:: Verbalizes understanding of THR, RPE & goal METS by session 6, Documents in home exercise log/reports 30 min aerobic 5 day/wk by DC, Demonstrates acc urate pulse taking by DC - Intervention & Plan Exercise Program Goals: Instruct on personal THR & RPE, Instruct on MET level & personal MET goal, Show patient to take own pulse /validate performance until accurate, Instruct on home exercise - 30-day Reassessments 30 day Reassessments:: Met - Physical Activity Home Exercise Physical Activity - Home Exercise: Safe Exercise, Warm-up, Self-monitoring, Cool-Down, Home Exercise > 30 min Daily, Sitting Time <3 hours/daily - Outcomes & Goals Outcomes/Goals: Demonstrates correct Warm-up/exercise Cool-Down (S3) if = 2.5 METs, Verbalizes symptoms of exercise intolerance by Session 3 (S3), Demonstrate safe equipment use (S3) & follows exercise prescrition (6) - Intervention & Plan Plan/Intervention: Instruct warm-up & cool-down if exercising at > 2 METs, I nstruct on symptoms of exercise intolerance & actions to take, Instruct & monitor on saf, Assess intial functional capacity & safety risk - 30-day Reassessments 30 day Reassessments:: Met Nutrition - Initial Assessment Nutrition - 30-Day Assessment Nutrition - 60-Day Assessment Nutrition - 90-Day Assessment Nutrition - Final Assessment - Program Goals Nutrition Program Goals: LDL <100 optimal. 100 - 129 Near optimal. 130 - 159 Borderline High. 160 - 189 High. Total Cholesterol <200 desirable. 200 - 239 Borderline High. >/= 240 High. HDL < 40 Low >/=60 High. Triglycerides <150 desirable. <199 optimal. VlDL 5 - 40. HgbA1C <7%. BMI <25 Patient has diagnosis of Hyperlipidemia (ICD E78)?: Yes - Visit Date of Assessment:: 02/20/21 Session #:: 34 - Cholesterol/Lipids Triglycerides (mg/dL): 177 Total Cholesterol (mg/dL): 228 LDL Cholesterol (mg/dL): 152 HDL Cholesterol (mg/dL): 41 Determine presence & major risk factors that modify LDL goal: Hypertension or hypertensive medication, Family history of premature CHD in Male < 55 years: female <65 yearsFa, Age men > 45 years; women >/= 55 years Outcomes/Goals: Pt IDs own risk factors & lifestyle modifications by Session 10, Verbalizes symptoms of angina & response by session 3., Pt independently manages Intervention/Plan: Instruct on personal lipid levels & lipid goals/NCEP guidelines, Instruct on cholesterol Referral to dietitian:: No - Patient declined 30-day Reassessments:: Met - Diabetes (Other Core Measures) Diabetes Type: Not Applicable - Weight Mgt (Other Care) Not Applicable: No Height: 5 ft 10 in - patient losing about 2-3 pounds weekly! Weight:: 234 lb BMI: 33.5 Diagnosis Overweight/Obesity BMI> 30% ICD-10 E66: Yes Diagnosis High BMI/Morbid Obesity BMI> 35% ICD-10 Z68: No Outcomes/Goals: Pt sets, maintains & shows weight loss goal & trend during rehab Intervention/Plan: Instruct on ideal BMI & set weight loss goal w/patient, Assist pt to ID & incorporate diet changes for weight loss by S9, Encourage goal of using 250-300dcal per session for weight loss 30 day Reassessments:: Progressing - Healthy Eating Habits Will attend diet classes:: Yes Outcomes/Goals:: Consume diet rich in vegs,fruits,whole grain/high fiber,fish,lean meat, Limit sat/trans fats,cholesterol & added salts & sugars Intervention/Plan:: Assess current eating habits 30-day Reassessments:: Met Reassessment Notes & Comments:: following a cardiac diet eating healthier - Education Gave educational materials for:: Healthy eating Medical - Initial Assessment Medical- 30-Day Assessment Medical- 60-Day Assessment Medical- 90-Day Assessment Medical - Final Assessment - Visit Date of Eval: 02/20/21 Session #:: 34 - Medication Compliance Preventative Medication(s):: Aspirin, Statin/lipid, Beta elma H/O mental health issues: depression, anxiety, or addiction?: No Doesn?t believe in the benefits of treatment?: No Believes medications are unnecessary or harmful?: No Has a concern about medication side effects?: No Expresses concern over the cost of medications?: No Outcomes/Goals: Verbalizes medications,desired effect & common side effects @ DC, Pt self-reports following medication regimen, Keeps card in wallet w/medications listed by DC Interventions/plans: Instruct on medication effects & side effects, Review medication list w/patient every two weeks, Instruct importance of taking meds as ordered & assist problem solving 30-day Reassessments:: Met - Tobacco Use Tobacco Use: Non-smoker - Hypertension Hypertension Diagnosis:: Hypertension ICD-10 I10 Resting Blood Pressure:: 128/84 [place] [employer] Hypertension Guidelines: [place] [employer] Hypertension Guidelines. Normal BP Less than 120/80. Elevated BP 120/80. Hypertension Stage 1: BP 130-139/80-89. Hypertesnion Stage 2: BP 140 or higher/90 or higher. Hypertension Crisis: BP higher than 180/120 Peak Exercise Blood Pressure:: 158/100 - on [employer] Bike Outcomes/Goals: Able to verbalize/achieve optimal blood pressure <130/80, Incorporates diet changes & exercise for blood pressure control by DC Interventions/plan: Instruct on optimal blood pressure, hypertension & medications, Instruct on effects of sodium, alcohol, stress, exercise &hypertension 30 day Reassessments:: Progressing - Tobacco Cessation Referral Smoking Cessation Referral:: No Individual Education/Counseling:: No Education Schedule Given:: Yes - Patient using online [employer] website Psychosocial - Initial Assess Psychosocial - 30-Day Assess Psychosocial - 60-Day Assess Psychosocial - 90-Day Assess Psychosocial - Final Assessmen - VIsit Date of Eval: 02/20/21 Session #:: 34 Not Applicable: Yes History of previous Mental disease:: No - Psychosocial Test Tool Used:: [employer] QOL Cardiac, PHQ-9 Questionnaire phq-9 Severity: Severity. 1-4 Minimal Depression. 5-9 Mild Depression. 10-14 Moderate Depression. 15-19 Moderately Sever Depression. 20-27 Severe Depression. Rule: - Referral to Behavioral Health PS - Interventions: Yes Attend Stress Management Classes, No Referral to Behavioral Health if PHQ-9 score >9:, No Referral to [facility], No Referral to Physician if PHQ-9 if score is 5-9: - Outcomes/Goals: See list Psychosocial Outcomes/Goals:: ID's personal stressors & 2 strategies to manage stress by discharge - Intervention/Plan: See List Interventions/Plan:: Assess stressors,coping strategies & signs of derpression on admission, Instruct/assist pt to develop coping & personal stress Mgt strategies, Instruct patient to recognize signs & symptoms of depression, Instruct patient to recog - 30-day Reassessments: 30 day Reassessments:: Met Patient Health Questionnaire Discharge Assessment 2. Feeling down, depressed, or hopeless: Not at all 3. Trouble falling or staying asleep, or sleeping too much: Not at all 4. Feeling tired or having little energy: Not at all 5. Poor appetite or overeating: Not at all 6. Feeling bad about yourself -- or that you are a failure or have let yourself or your family down: Not at all 7. Trouble concentrating on things, such as reading the newspaper or watching television: Not at all 8. Moving or speaking so slowly that other people could have noticed. Or the opposite - being so fidgety or restless that you have been moving around a lot more than usual: Not at all 9. Thoughts that you would be better off , or of hurting yourself in some way: Not at all Total Score: 0 Self-Efficacy Discharge Assessment We would like to know how confident you are in doing certain activities. Please select your confidence level for:: Select your confidence level for the following using the scale 1-10 where 1 is not at all confident and 10 is totally confident. Your score is the average of all 6 responses. Fatigue: How confident are you that you can keep the fatigue caused by your disease from interfering with the things you want to do? Select Number: 10 Physical Discomfort or Pain: How confident are you that you can keep the physical discomfort or pain of your disease from interfering with the things you want to do? Select Number: 10 Emotional Distress: How confident are you that you can keep the emotional distress caused by your disease from interfering with the things you want to do? Select Number: 10 Other Symptoms or Health Problems: How confident are you that you can keep other symptoms or health problems from interfering with the things you want to do? Select Number: 10 Different Tasks and Activities: How confident are you that you can do the different tasks and activities needed to manage your health condition so as to reduce your need to see a doctor? Select Number: 10 Medication: How confident are you that you can do things other than just taking medication to reduce how much your illness affects your everyday life? Select Number: 10 Total Score:: 10 Nutrition Survey
[2021-02-20 07:10] VITALS: BP 128/84; BP 158/100; BMI 33.5
== END 2021-03-05 23:59 ==
LOC: CR 08:00
PROVIDERS: PCP Family Medicine; Referring Provider Internal Medicine Cardiovascular Disease; Visit Provider Internal Medicine Cardiovascular Disease
DX: I74.2 Embolism and thrombosis of arteries of the upper extremities (principal); I48.92 Unspecified atrial flutter; I25.10 Atherosclerotic heart disease of native coronary artery without angina pectoris; I34.1 Nonrheumatic mitral (valve) prolapse; I34.0 Nonrheumatic mitral (valve) insufficiency; I27.21 Secondary pulmonary arterial hypertension; I10 Essential (primary) hypertension; E78.5 Hyperlipidemia, unspecified; Z95.1 Presence of aortocoronary bypass graft
CPT/HCPCS: 93798

== ENCOUNTER 2021-07-27 13:32 | Outpatient (CLI) | payer MEDICARE, OTHER, SELFPAY ==
[2021-02-20 07:10] VITALS: BMI 33.5
== END 2021-07-27 23:59 | disposition home or self-care (01) ==
PROVIDERS: PCP Family Medicine; Referring Provider Nurse Practitioner Family; Visit Provider Nurse Practitioner Family
DX: I25.10 Atherosclerotic heart disease of native coronary artery without angina pectoris (principal); I48.92 Unspecified atrial flutter; I44.2 Atrioventricular block, complete; I34.0 Nonrheumatic mitral (valve) insufficiency; I34.1 Nonrheumatic mitral (valve) prolapse; I10 Essential (primary) hypertension; I44.1 Atrioventricular block, second degree; E78.5 Hyperlipidemia, unspecified; R42 Dizziness and giddiness; Z95.1 Presence of aortocoronary bypass graft; Z98.890 Other specified postprocedural states
CPT/HCPCS: 93225; 93226

== ENCOUNTER → 2022-03-04 | Outpatient (CLI) | payer MEDICARE, OTHER, SELFPAY ==
[2021-02-20 07:10] VITALS: BMI 33.5
[2022-03-04 11:53] LABS: AST(SGOT) 35 U/L (15-37); Alanine Aminotransfer ALT/SGPT 51 U/L (16-61); Albumin, Serum 3.5 g/dL (3.2-5.0); Alkaline Phosphatase 57 U/L (45-117); Bilirubin, Direct 0.13 mg/dL (0.00-0.30); Cholesterol 201 mg/dL (200); Globulin 3.7 g/dL (2.2-4.2); High Density Lipoprotein 41 mg/dL; Protein, Total 7.2 g/dL (6.4-8.2); Triglycerides 203 mg/dL; Very Low Density Lipoprotein 41 mg/dL (5-40)
== END | disposition home or self-care (01) ==
LOC: LAB 09:42
PROVIDERS: PCP Family Medicine; Referring Provider Internal Medicine Cardiovascular Disease; Visit Provider Internal Medicine Cardiovascular Disease
DX: E78.00 Pure hypercholesterolemia, unspecified (principal)
CPT/HCPCS: 36415; 80061; 80076

== ENCOUNTER → 2022-07-27 | Outpatient (CLI) | payer MEDICARE, OTHER, SELFPAY ==
[2021-02-20 07:10] VITALS: BMI 33.5
[2022-07-27 12:27] LABS: Absolute Neutrophil Count 3.2 X10^3/uL (2.0-7.7); Basophil# 0.04 X10^3/uL; Basophil% 0.8 % (0-1); Eosinophil# 0.08 X10^3/uL; Eosinophils% 1.7 % (0-5); Hematocrit 46.2 % (40-54); Hemoglobin 15.2 g/dL (13.0-16.5); Lymphocyte % 21.2 % (19-41); Mean Corp Hgb Conc 32.9 g/dL (32-36); Mean Corpuscular Hgb 32.8 pg (27.0-32.0); Mean Corpuscular Volume 99.6 fL (80-94); Mean Platelet Vol. 9.2 fl (6.2-12.0); Monocyte# 0.41 X10^3/uL; Monocyte% 8.7 % (0-10); NRBC Flagged by Analyzer 0 % (0-5); Neutrophil # 3.16 X10^3/uL (2.7-7.7); Neutrophil % 67.2 % (47-70); Platelet Count 217 K/mm3 (150-450); RBC Distribution Width CV 12.5 % (11.6-14.6); Red Blood Count 4.64 M/mm3 (4.6-6.2); White Blood Count 4.7 K/mm3 (4.4-11.0)
[2022-07-27 12:44] LABS: Vitamin B12 282 pg/mL (211-911)
[2022-07-27 12:50] LABS: Anion Gap 7 (5-15); BUN 18 mg/dL (7-18); BUN/Creat Ratio 17.6 RATIO (10-20); Calcium,Total 9.6 mg/dL (8.5-10.1); Chloride 107 mmol/L (98-107); Cholesterol 212 mg/dL (200); Creatinine, Serum 1.02 mg/dL (0.70-1.30); EST Glomerular Filtration Rate 77 mL/min (>60); Est Glom Filt Rate - Afr Amer 93 mL/min (>60); Glucose 167 mg/dL (74-106); High Density Lipoprotein 41 mg/dL; Potassium 4.8 mmol/L (3.5-5.1); Sodium Level 141 mmol/L (136-145); Triglycerides 165 mg/dL; Very Low Density Lipoprotein 33 mg/dL (5-40)
[2022-07-27 12:51] LABS: Hemoglobin A1c 7.5 % (3.8-5.6)
== END | disposition home or self-care (01) ==
LOC: BFHLAB 08:59
PROVIDERS: PCP Family Medicine; Visit Provider Family Medicine
DX: E78.5 Hyperlipidemia, unspecified (principal); R73.09 Other abnormal glucose; I10 Essential (primary) hypertension; Z12.5 Encounter for screening for malignant neoplasm of prostate; R53.83 Other fatigue; E55.9 Vitamin D deficiency, unspecified
CPT/HCPCS: 36415; 80048; 80061; 82306; 82607; 83036; 84153; 85025; G0103

== ENCOUNTER → 2022-09-23 | Outpatient (CLI) | payer MEDICARE, OTHER, SELFPAY ==
[2021-02-20 07:10] VITALS: BMI 33.5
--- NOTE | 2022-09-23 07:10 | MRI_ITS ---
STUDY: MR PELVIS WITH AND WITHOUT CONTRAST (PROSTATE) REASON FOR EXAM: Male, 72 years old. Elevated PSA TECHNIQUE: Standardized multiparametric prostate MRI with T1, T2, DWI/ADC sequences were obtained in 3 orthogonal planes, and dynamic contrast enhancement sequences. 22 ml of clariscan contrast material was administered intravenously for the contrast portion of the examination. COMPARISON: None. FINDINGS: The prostate volume measures 32.1 mm3. The contours of the prostate gland are smooth. There is not mass effect on the bladder base. The transition zone is homogenous. PI-RADS DWI score 2 - Hypointense within a BPH nodule on ADC. PI-RADS T2W score 2 - A mostly encapsulated nodule OR a homogeneous circumscribed nodule without encapsulation (atypical nodule) or a homogeneous mildly hypointense area between nodules.. Contrast enhancement no early or contemporaneous enhancement; or diffuse multifocal enhancement NOT corresponding to a focal finding on T2W and/or DWI or focal ehancement responding to a lesion demonstrating features of BPH onT2WI (including features of extruded BPH in the PZ). The peripheral zone is homogenous. PI-RADS DWI score 4 - Focal moderately hypointense on ADC and markedly hyperintense on high b-value DWI; <1.5cm on axial. PI-RADS T2W score 4 - Circumscribed, homogenous moderate hypointense focus/mass confined to prostate and < 1.5 cm in greatest dimension. Contrast enhancement (+) Focal, earlier or contemporaneous with enhancement of adjacent normal prostatic tissues, and corresponding to a suspicious finding on T2WI and/or DWI. 8.1 x 10.2 mm nodule in the right posterior apical peripheral zone on image 23 of series 9 with restricted diffusion on image 14 of series 600. The seminal vesicles demonstrate normal margins and T2 signal pattern. No mass lesion or invasion depicted. The rectoprostatic angles are normal. Urinary bladder is normal without wall thickening. The vascular structures of the are normal. The visualized hollow viscus structures are normal. Small fat-containing inguinal hernias. No bone marrow edema or mass lesion depicted. Bilateral hip replacement. MRI/Pelvis W/WO Contrast IMPRESSION: 1. PIRADS v2.1 2019 -- 4 - High (clinically significant cancer is likely). Electronically Signed: Joshua Reyes (Brooks), at 9:01 EDT ,
[2022-09-23 07:36] LABS: CREATININE FINGERSTICK < 0.9 mg/dL (0.70-1.30); EGFR FINGERSTICK > 60.0000 mL/min (>60)
== END | disposition home or self-care (01) ==
LOC: MRI 06:55
PROVIDERS: PCP Family Medicine; Referring Provider Urology; Visit Provider Urology
DX: R97.20 Elevated prostate specific antigen [PSA] (principal); N40.3 Nodular prostate with lower urinary tract symptoms
CPT/HCPCS: 72197; A9575

== ENCOUNTER → 2022-10-11 | Outpatient (CLI) | payer MEDICARE, OTHER, SELFPAY ==
[2021-02-20 07:10] VITALS: BMI 33.5
--- NOTE | 2022-10-11 11:15 | PROSBIL_PTH ---
PATIENT: VALENTE CHILDS LOC: [facility] U#:[id number] AGE/SX: 72/M ROOM: RE10/11/[address]: Dr. Mian Hernandez MD : 1950 BED: DIS: 10/11/2022 SPEC #: [id number] RECD: 10/11/22 11:56 STATUS: THEO REQ #: [id number] CHIQUIS: 10/11/22 11:[address]: Mian Hernandez DEPT: SURGICAL PATHOLOGY RECD BY: Zenobia Lakhani ENTERED: 10/11/22 13:27 SP TYPE: PROST BX JANA DR: Dr. Nehemiah Montenegro DO Tissues: A - PROSTATE RIGHT B - PROSTATE RIGHT C - PROSTATE RIGHT D - PROSTATE LEFT E - PROSTATE LEFT F - PROSTATE LEFT Procedures: PROSTATE BX HEADER OPERATION: Prostate biopsy PRE-OP DIAGNOSIS: Elevated PSA TISSUE SUBMITTED: A - Right apex, B - Right mid, C - Right base, D - Left apex, E - Left mid, F - Left base MICROSCOPIC DIAGNOSIS A. Right prostate, apex, core biopsy: Prostatic adenocarcinoma. Layne grade: 3+4=7 Number of cores involved: 1/1 Proportion of tissue involved: ~70-80% Perineural invasion: Present. Greatest tumor length: 0.8 cm B. Right prostate, mid, core biopsy: Prostatic adenocarcinoma. Roebling grade: 3+4=7 Number of cores involved: 2/2 Proportion of tissue involved: ~70-80% Perineural invasion: Present. Greatest tumor length: 0.8 cm Focal high-grade prostatic intraepithelial neoplasia (HGPIN). C. Right prostate, base, core biopsy: Prostatic adenocarcinoma. Roebling grade: 3+3=6 Number of cores involved: 1/1 Proportion of tissue involved: ~20% Perineural invasion: Not identified. Greatest tumor length: 0.8 cm, discontinuous Focal high-grade prostatic intraepithelial neoplasia (HGPIN). D. Left prostate, apex, core biopsy: Prostatic tissue, negative for malignancy. E. Left prostate, mid, core biopsy: Prostatic tissue, negative for malignancy. F. Left prostate, base, core biopsy: Focal high-grade prostatic intraepithelial neoplasia (HGPIN). SJ:martin 10/12/2022 COMMENT Case has been reviewed in consultation with Dr. Perez who concurs with the above diagnosis. IDC:AM MICROSCOPIC DESCRIPTION Slides are reviewed. GROSS DESCRIPTION A - Received is one container designated prostate, right apex. The specimen consists of one elongated fragment of light nunes-white soft tissue measuring 1.2 cm in length and 0.1 cm in diameter. The specimen is totally submitted in one cassette. B - Received is one container designated prostate, right mid. The specimen consists of two elongated fragments of light nunes-white soft tissue measuring 0.9 and 1.2 cm in length and 0.1 cm in diameter. The specimen is totally submitted in one cassette. C - Received is one container designated prostate, right base. The specimen consists of one elongated fragment of light nunes-white soft tissue measuring 1.5 cm in length and 0.1 cm in diameter. The specimen is totally submitted in one cassette. D - Received is one container designated prostate, left apex. The specimen consists of two elongated fragments of light nunes-white soft tissue each measuring 1.0 cm in length and 0.1 cm in diameter. The specimen is totally submitted in one cassette. E - Received is one container designated prostate, left mid. The specimen consists of two elongated fragments of light nunes-white soft tissue each measuring 0.3 cm in length and 0.1 cm in diameter. The specimen is totally submitted in one cassette. F - Received is one container designated prostate, left base. The specimen consists of one elongated fragment of light nunes-white soft tissue measuring 1.3 cm in length and 0.1 cm in diameter. The specimen is totally submitted in one cassette. / SJ:rg 10/11/2022 TC:0 CPT: G0146
== END | disposition home or self-care (01) ==
LOC: LABSPEC 11:58
PROVIDERS: PCP Family Medicine; Referring Provider Urology; Visit Provider Urology
DX: R97.20 Elevated prostate specific antigen [PSA] (principal)
CPT/HCPCS: 88305; G0416

== ENCOUNTER 2022-12-22 07:45 | Observation (INO) | payer MEDICARE, OTHER, SELFPAY ==
[2021-02-20 07:10] VITALS: BMI 33.5
--- NOTE | 2022-12-13 08:34 | EKG12_ITS ---
Test Reason : PREOP Blood Pressure : / mmHG Vent. Rate : 059 BPM Atrial Rate : 059 BPM P-R Int : 202 ms QRS Dur : 090 ms QT Int : 414 ms P-R-T Axes : 006 -16 004 degrees QTc Int : 409 ms Sinus bradycardia Minimal voltage criteria for LVH, may be normal variant Inferior infarct , age undetermined Abnormal ECG Confirmed by REFUGIO CAMARGO, KISHORE ([id number]), editor magazine ANDREEA CRONIN ([id number]) on 12/13/2022 1:33:03 PM Referred By: Mian Hernandez Confirmed By:KISHORE HUFF MD
[2022-12-13 10:16] LABS: Hemoglobin 14.9 g/dL (13.0-16.5); Mean Corp Hgb Conc 33.1 g/dL (32-36); Mean Corpuscular Hgb 32.5 pg (27.0-32.0); Mean Corpuscular Volume 98.3 fL (80-94); Mean Platelet Vol. 9.1 fl (6.2-12.0); Platelet Count 206 K/mm3 (150-450); RBC Distribution Width CV 12.6 % (11.6-14.6); RBC Distribution Width SD 45.1 fl (35.1-43.9); Red Blood Count 4.58 M/mm3 (4.6-6.2); White Blood Count 4.7 K/mm3 (4.4-11.0)
[2022-12-22] VITALS (11 sets, daily range): BP systolic 129–155; BP diastolic 68–82; PULSE 73–109; RESP 16–18; TEMP 36–36.6; O2SAT 92–97; BMI 34.1; BMI 34.6
[2022-12-22] MEDS: Lactated Ringers 1,000 ML 15 ML IV (06:57)
[2022-12-22] MEDS: Cefazolin 2 GM in 0.9% Normal Saline 100 ML IV (07:30)
--- NOTE | 2022-12-22 07:30 | PROST_PTH ---
PATIENT: VALENTE CHILDS LOC: [facility] U#:[id number] AGE/SX: 72/M ROOM: DE310 RE12/22/[address]: Dr. Mian Hernandez MD : 1950 BED: 1 DIS: 12/23/2022 SPEC #: [id number] RECD: 12/22/22 14:04 STATUS: THEO LESLIEDanelle #: [id number] CHIQUIS: 12/22/22 07:[address]: Mian Hernandez DEPT: SURGICAL PATHOLOGY RECD BY: Zenobia Lakhani ENTERED: 12/23/22 10:05 SP TYPE: PROSTATE OTHR DR: Dr. Nehemiah Montenegro, DO Tissues: A - Fatty tissue of breast B - Lymph node of pelvis, NOS C - Lymph node of pelvis, NOS D - Prostate, NOS E - Urethra, NOS F - Urethra, NOS Procedures: Surgery Specimen Level IV Surgery Specimen Level V Surgery Specimen Level HEADER OPERATION: Lap robotic radical prostatectomy, bilateral nerve sparing PRE-OP DIAGNOSIS: Prostate cancer TISSUE SUBMITTED: A - Fat over prostate, B - Left pelvic lymph node, C - Right pelvic lymph node, D - Prostate, E - Urethral margins, F - Anterior margin urethra MICROSCOPIC DIAGNOSIS A. Fat over prostate: Negative for carcinoma. B. Left pelvic lymph nodes, dissection: Three out of three lymph nodes, negative for metastatic carcinoma. C. Right pelvic lymph nodes, dissection: Five out of five lymph nodes, negative for metastatic carcinoma. D. Prostate, radical prostatectomy: Prostatic adenocarcinoma. See cancer summary in the comment section. E. Urethral margins: Negative for carcinoma. F. Anterior margin urethra: Negative for carcinoma. SJ:martin 12/24/2022 COMMENT PROSTATE CANCER (RADICAL) SUMMARY: Procedure: Radical Prostatectomy Prostate Size: Weight: 37 gm Size: 4.0 cm transversely, 3.3 cm anterior-posteriorly and 4.5 cm craniocaudally Histologic Type: Adenocarcinoma Histologic Grade: Grade group 2, [place] score 3+4=7 Tumor Quantitation: Estimated percentage of prostate involved by tumor: ~10% The tumor involves both right and left lobes. The tumor is present in the apical and mid portion of the right lobe and measures approximately 1.5 x 1 x 1 cm (measured microscopically) and the tumor is present in the mid and basal portion of the left lobe and measures approximately 1.0 x 0.4 x 0.6 cm (measured microscopically). Extraprostatic Extension: Not identified Urinary Bladder Neck Invasion: Not identified Seminal Vesicle Invasion: Not identified Lymphvascular Invasion: Not identified Perineural Invasion: Present, frequent Margins: Margins are uninvolved by invasive carcinoma. Regional Lymph Nodes: Number of lymph nodes involved by carcinoma: 0 Total number of lymph nodes examined: 8 Treatment Effect: No known presurgical therapy. Distant metastasis: Not applicable Additional Pathologic Findings: Acute and chronic inflammation. - Focal high-grade prostatic intraepithelial neoplasia (HGPIN). Clinical History: Please make reference to previous specimen ([id number]) right prostate, apex, mid & base, biopsies with diagnosis of adenocarcinoma and left prostate, base, biopsy with diagnosis of focal high-grade prostatic intraepithelial neoplasia. PATHOLOGIC STAGE: pT2 pN0 pMx The above summary is in compliance with [employer] [employer] (CAP) Cancer Protocols Checklist and [place] [employer] Committee on Cancer (AJCC), Staging Manual, 8th Ed. Case has been reviewed in consultation with Dr. Perez who concurs with the above diagnosis. IDC:AM MICROSCOPIC DESCRIPTION Slides are reviewed. GROSS DESCRIPTION A - Received in fixative is one container labeled with the patient's name and designated fat over prostate. The specimen consists of an irregular fragment of yellow fatty tissue measuring 3.0 x 2.5 x 1.0 cm. The specimen is submitted in its entirety in one cassette. B - Received in fixative is one container labeled with the patient's name and designated left pelvic lymph nodes. The specimen consists of two irregular fragments of yellow fatty tissue ranging in size from 2.0 to 5.0 cm. Combination Building Inspector sections are submitted in three cassettes as follows: 1 one nodule bisected, 2??one nodule bisected, 3 - largest nodule, serially sectioned. Nodules are submitted in entirety. C - Received in fixative is one container labeled with the patient's name and designated right pelvic lymph nodes. The specimen consists of two irregular fragments of yellow fatty tissue ranging in size from 1.5 to 4.5 cm. Dissection reveals three nunes nodules ranging in size from 1.0 to 2.5 cm. The nodules are totally submitted in three cassettes as follows: 1 one nodule, 2??second nodule, 3 - largest nodule, bisected. D - Received in fixative is one container labeled with the patient's name and designated prostate. The specimen consists of a prostate with attached seminal vesicle and vas deferens. The prostate measures 4.0 cm transversely, 3.3 cm anterior-posteriorly and 4.5 cm craniocaudally. The specimen weighs 37 gm. The specimen is differentially inked as follows: anterior - red, right half - blue, left half - green and entire posterior surface - black. The gland is serially sectioned from apex to base of gland at approximately 0.3 cm intervals. No distinct mass lesion is identified. Combination Building Inspector sections are submitted in 18 cassettes as follows: 1 - distal urethral margin, 2 - bladder shave (proximal mucosal margin), 3 - seminal vesicles, 4?& 5 - most basal section of prostate, 6 & 7 - apex of prostate, 8-13 - mid portion of prostate, 14-18 - basal portion of prostate. E - Received in fixative is one container labeled with the patient's name and designated urethral margins. The specimen consists of one irregular fragment of light nunes soft tissue that measures 0.3 x 0.3 x 0.1 cm. The specimen is totally submitted in one cassette. F - Received in fixative is one container labeled with the patient's name and designated anterior margin urethra. The specimen consists of an elongated fragment of nunes tissue measuring 2.0 x 0.5 x 0.3 cm. The specimen is totally submitted in one cassette. / AM:martin 12/23/2022 TC:0 CPT: 88267, 20584 x2, [id number] x3
--- NOTE | 2022-12-22 07:39 | HP.PCM_ITS ---
HPI - General General Date of Service: 12/22/22 Chief Complaint: Prostate cancer HPI Narrative VALENTE CHILDS, is a 72 M who presents for radical prostatectomy he has a history of prostate cancer and we will proceed with a radical prostatectomy bilateral nerve sparing. [facility] Medical History (Updated 12/08/22 @ 13:25 by Leyda Fox) Arthritis Atherosclerotic heart disease of [place] coronary artery without angina pectoris BPH (benign prostatic hyperplasia) Cancer Cardiology follow-up encounter COVID-19 (04/2020) Diabetes Essential (primary) hypertension High cholesterol History of echocardiogram History of Holter monitoring History of migraine headaches History of pain when walking History of stress test Hyperlipidemia Idioventricular rhythm IFG (impaired fasting glucose) Injury of head and neck Migraines Non-smoker Non-sustained ventricular tachycardia Nonrheumatic mitral (valve) insufficiency Nonrheumatic mitral (valve) prolapse Obesity Osteoarthritis Postoperative atrial fibrillation (10/20/20) Secondary pulmonary arterial hypertension Thrombus of right radial artery (10/15/20) Wears glasses [employer] Home Medications aspirin 81 mg tablet,delayed release 81 mg PO DAILY@0800 09/12/20 [History Last Taken 12/05/22] sumatriptan succinate 50 mg tablet 50 mg PO ONCE PRN migraine headache 11/11/20 [History Last Taken 12/20/22] atenolol 25 mg tablet 25 mg PO DAILY #90 tabs 03/04/22 [Rx Last Taken 12/21/22] pravastatin 40 mg tablet 40 mg PO QHS #90 tabs 10/14/22 [Rx Last Taken 12/21/22] ascorbic acid (vitamin C) 500 mg tablet (Vitamin C) 1 g PO DAILY 12/08/22 [History Last Taken 12/21/22] cinnamon bark 500 mg capsule (Cinnamon) 1,000 mg PO DAILY 12/08/22 [History Last Taken 12/21/22] omeg3-epa 150 mg-dha 100 mg-fish oil-flaxseed oil 333 mg-E 61 unit cap 1 cap PO DAILY 12/08/22 [History Last Taken 12/11/22] Allergy/AdvReac Type Severity Reaction Status Date / Time codeine Allergy Intermediate Nausea Verified 12/22/22 06:31 fentanyl Allergy Intermediate hypotension Verified 12/22/22 06:31 Family History Mother Parkinson's disease Migraines Father Diabetes AAA (abdominal aortic aneurysm) Brother Diabetes Hypertension CVA (cerebral vascular accident) age 77 cardiac arrest Grandmother Heart disease Grandfather Cancer Prostate Son Migraines Son Migraines Daughter Migraines Surgical History (Updated 12/08/22 @ 13:25 by Leyda Fox) H/O coronary artery bypass surgery (10/13/20) History of arthroscopy of left knee (2012) History of cardiac catheterization History of left heart catheterization (09/15/20) History of mitral valve repair (10/13/20) History of tonsillectomy (1954) History of total left hip replacement (2012) History of total right hip replacement (2011) Social History Smoking Status: Never smoker alcohol intake: never substance use type: does not use Vital Signs Vital Signs Vital Signs: 12/22/22 06:34 12/22/22 06:34 Temperature 97.5 F L Temperature Source Temporal Pulse Rate 73 Respiratory Rate 18 Respiratory Pattern Normal Blood Pressure 155/82 H Blood Pressure Mean 106 Blood Pressure Source Monitor Blood Pressure Position Semi-Fowlers Blood Pressure Location Right Arm Pulse Ox 96 Oxygen Delivery Method Room Air Weight Weight: 108 kg Body Mass Index (BMI) 34.1 Results Lab / Micro Data 12/13/22 09:04
[2022-12-22 07:45] LABS: Bedside Glucose 144 mg/dL (74-106)
--- NOTE | 2022-12-22 07:50 | PCM.DC ---
Discharge Instructions Diet Discharge Diet: No restrictions, Light diet - advance as tolerated and Soft diet Activity Discharge Activity: May Shower Lifting Restrictions: No lifting for 6 weeks Dressing / Incision Catheter: Jane to leg bag and Jane to large bag Drain: [place] Follow Up Care Please Follow Up With: Mian Hernandez MD When: 2 weeks. Test Results: Test results from this visit will be discussed in further detail at your follow-up appointment, if applicable. Discharge Plan Admission Primary Reason for Your Visit: Radical prostatectomy Attending Provider: Mian Hernandez Primary Care Provider: Nehemiah Montenegro Instructions Patient Instructions: Radical Prostatectomy Dc Discharge Orders/Prescriptions Prescriptions: New oxycodone 5 mg tablet 5 mg PO Q6H PRN (Reason: pain) 7 Days Qty: 14 0RF docusate sodium [Colace] 100 mg capsule 100 mg PO BID Qty: 20 0RF ciprofloxacin HCl [Cipro] 500 mg tablet 500 mg PO BID Qty: 20 0RF Continued sumatriptan succinate 50 mg tablet 50 mg PO ONCE PRN (Reason: migraine headache) atenolol 25 mg tablet 25 mg PO DAILY Qty: 90 3RF aspirin 81 MG tablet 81 mg PO DAILY@0800 [id number]-dha-fish oil-flax-E [id number] og-rg-yz-unit capsule 1 cap PO DAILY cinnamon bark [Cinnamon] 500 mg capsule 1,000 mg PO DAILY ascorbic acid (vitamin C) [Vitamin C] 500 mg tablet 1 g PO DAILY pravastatin 40 mg tablet 40 mg PO QHS Qty: 90 3RF Referrals / Follow Up: Mian Hernandez MD [Med Staff - Active Staff] - Nehemiah Montenegro DO [Primary Care Provider] - Disposition Disposition (needs filled in before D/C Order can be placed): Home, Self Care
[2022-12-22] MEDS: Bupivacaine Mpf 0.5% 30 ML VIAL (11:10)
[2022-12-22] MEDS: Lactated Ringers 1,000 ML 125 ML IV ×2 (11:41→22:34)
--- NOTE | 2022-12-22 12:12 | OP.PCM_ITS ---
Report of Operation Date of Procedure: 12/22/22 Pre-Operative Diagnosis: Prostate cancer Post-Operative Diagnosis: Prostate cancer and direct right inguinal hernia Surgery/Procedure Performed:: Laparoscopic robotic assisted radical prostatectomy, bilateral lymph node dissection, right direct inguinal hernia repair Description of Surgical Findings:: Patient presented to the hospital for treatment of his prostate cancer with radical prostatectomy. In the preoperative setting we discussed the options of management for his prostate cancer including active surveillance, radiation treatments, radioactive seeds, and radical robotic prostatectomy. We discussed the side effects of surgery including the potential to lose erections. We discussed the potential to have bladder control problems with stress incontinence which can be temporary or permanent. We discussed the risk of the surgery including the risk of general anesthetic, risk of bleeding, risk of infection, and risk of formation of hernia either incisional hernia or inguinal hernia. After long discussion with the patient the preoperative setting and also reviewed this in the preop area patient signed the consent form and we proceeded with a radical prostatectomy. Patient was taken back to the operating room he was identified, time out procedure was performed and he was placed supine on the table he underwent general anesthesia with intubation. The abdomen was shaved prepped and draped in usual sterile fashion as well as the penis and testicles. A 16 Georgian catheter was placed into the bladder with clear return of urine. I then made an incision in the umbilicus and dissected down to the fascia advance a Veress needle into the peritoneal cavity and insufflated the peritoneal cavity with CO2 gas. I then placed a 12 mm trocar above the umbilicus. I then visualized the placement of the rest of the trochars, I placed a right arm robotic trocar, and air seal trocar, a suction port 5 mm trocar. And on the left side I placed 2 robotic arms. Once all the trochars were in placed the patient was put in steep Trendelenburg. And the robot was docked the arms were docked and then I placed the 0 degree camera through the robotic arm and also used a 30 degree camera during certain parts of the case. I used scissors in the right arm, prograsp in the third arm, and a bipolar in the second arm. Initial dissection was to free the sigmoid colon off the lateral wall this was done by meticulously dissecting off the peritoneum and the sigmoid colon off the left lateral wall. This then allowed the prograsp to retract the sigmoid colon out of the pelvis. I then went below the bladder and identified the vas deferens incised the peritoneum over the vas deferens and traced the vas deferens below the bladder to the prostate and identified the right and left vasa deferens. Below behind the vas deferens then the seminal vesicles were identified. I then dissected the seminal vesicle free using pinpoint electrocautery and then we identified the other seminal vesicle and then dissected this using pinpoint electrocautery I then elevated the vas deferens and several vesicles off the prostate and was able to sweep the Denonvilliers' fascia off the prostate posteriorly all the way up to the apex of the prostate. Working laterally I made sure I went as lateral as possible to sweep the Denonilliers' fascia off the posterior aspect of the prostate and worked my way back, I then transected the vas deferens and the left and right side the seminal vesicles were then dissected free. And then I pulled out of the pelvis. At this point the bladder was dropped creating the space of Retzius with the bladder on traction with the fourth arm. Using electrocautery I dissected in the anterior peritoneal fascia and then created the space of Retzius dissecting towards the prostate. The pelvic lymph node dissection was then performed both side. Rhe right pelvic lymph nodes the nodes that were taken on the right side extended from the right iliac artery lateral pelvic sidewall up to the junction of the artery and the lymph nodes and down to the obturator nerve and then also below the production drilling machine operator nerve all the lymph nodes were removed during to remove those lymph nodes we used clips and electrocautery to control small blood vessels and also the control lymphatic. I then went to the left side and again did an extensive lymph node dissection starting of the left iliac artery extending the left iliac vein on the lateral sidewall down to the obturator nerve and the left side beyond the production drilling machine operator nerve down further behind it cleaning out all the lymphatic tissue all this tissue was sent off as a specimen we use clips and electrocautery during the dissection. At the end we cleaned out all the lymphatic tissue on the right pelvic wall and all the lymphatic tissue in the left pelvic wall. The prostate was then cleaned of the fat over the prostate and the fourth arm was used to retract the bladder and place traction. I then identified the endopelvic fascia that was overlying the prostate on the right side I incised endopelvic fascia and wwept the levator muscles off the prostate all the way to the apex on the right side, I then worked my way anterior to the prostate then transected to the puboprostatic ligament and the underlying dorsal vein complex was not injured. I then went to the other side and identified the endopelvic fascia in the left side incised in a fashion the left side and swept the levator muscles off the prostate on the left side all the way up to the apex the puboprostatic ligament on the left side was then dissected and transected I then freed up the fascia overlying the dorsal vein complex. I then used the prograsp to encircled the dorsal vein complex with the prograsp and then switched over to the right and left needle special needs bus driver and suture ligated the dorsal vein complex above the prograsp. The prograsp was then placed back in the bladder and put back on traction I then identified the junction between the bladder and the prostate and dissected down between the bladder and the prostate untilI came across the catheter we then dissected posteriorly to the bladder and prostate to free the prostate and the bladder off each other and the muscles between the bladder and the prostate was then cauterized to free up the bladder. I then went on top of the prostate and identified the endopelvic fascia on top of the prostate this was incised all the way to the apex and then we swept the endopelvic fascia off the prostate laterally and then identified the plane between endopelvic fascia and the prosthetic pseudocapsule and swept the fascia laterally until reaching the course of the neurovascular bundles and then released the neurovascular bundles off the prostate laterally all the way back in a retrograde fashion back to the junction of the pedicles then the prostate was placed on traction with the fourth arm pulling the prostate laterally identified the pedicle to the prostate between the seminal vesicles and the and the neurovascular bundle and this was taken using sequential small hemolocks. After the pedicle was taken the I then dissected underneath the prostate sweeping the neurovascular bundle off the prostate we able to follow the nice smooth plane between the neurovascular bundle and the pseudocapsule all the way to the apex once this was identified we swept this up all the way up to the apex and there was perfect nerve sparing on the right side. Then went to the left side the prostate identified the endopelvic fascia over the left side of the prostate I incised the endopelvic fascia all the way to the apex and then swept this off laterally I then released the neurovascular bundles on the left side of the prostate sweeping him off the prostate laterally I then elevated the prostate up up with the prostate and traction identified the pedicle to the prostate on the left side and then the pedicles taken with sequential Hem-o-salma clips I then was able to dissected the neurovascular bundle off the left posterior aspect the prostate this was a perfect dissection all the way up on the left side following the pseudocapsule all the way up the left side until we reached the apex of the prostate. After the both the neurovascular bundles has been swept off the posterior to the prostate I then went above and transected the dorsal vein complex there was minimal to no bleeding but then dissected down to the urethra and circumfencial dissected around the urethra I then switched the right and left arm with the needle drivers and I suture-ligated the dorsal vein complex again just to ensure that there was no bleeding from the dorsal vein complex. I then transected through the urethra with scissors and the prostate was then freed and released off the prostate bed and put an Endo Catch bag. At this point the bladder neck was reconstructed and then an anastomosis was performed between the prostate and the bladder with a 3 oh V-Loc stitch in a running fashion starting from the bladder neck at the 6 o'clock position working to the 12 o'clock position with continuous stitches to complete a perfect anastomosis between the bladder and the prostate. I then placed a new catheter into the bladder, an 18 [place] tip catheter flushed the bladder and there was no leakage from the anastomosis I put 10 cc in the balloon and pulled it up pulled back gently. I then ensured that there was no bleeding from the dorsal vein complex no bleeding from the neurovascular bundles FloSeal was placed as necessary once hemostasis was ensured and adequate, At this point I then proceeded with the repair of the direct inguinal hernia. The edges of the hernia were marsupialized and delivered. I then used a mesh plug to go inside the hernia defect mesh plug fit in nicely. Then the peritoneal bladder flap was then sewn over the hernia site to fix the mesh plug and site and to place the peritoneum over the mesh plug and then cover up the prostate with the peritoneum flap from the bladder. We used a 2 oh V-Loc stitch to do this a continuous stitch to ran from the 5 o'clock position on the left side all the way up to the 12 o'clock position and then all the way back down to the 5 o'clock position on the left side. After the hernia was repaired and the peritoneum was placed over the mesh plug then I proceeded with the rest of the procedure. Then I placed the bladder back in position in the pelvis the prostate was exchanged to the camera port I closed the air seal port with a 10 12 Abisai Hernandez stitch. And the extracted the prostate through the umbilicus. The robot was undocked all the ports were removed under direct visualization then closed the extraction site with 0 Vicryl with a CT1 needle once the extraction site was closed. I then closed all the incision with subcuticular stitches with 4-0 Monocryl and then bandages were placed on the incisions catheter was flushed to make sure it was draining well there was no clots and it was crystal clear patient's anesthetic was reversed he was extubated and taken back to the PACU in stable condition all the needles and sponges and instruments were accounted for. Blood loss was minimal and the drain was a 18 Georgian Chairez catheter. No other surgical drain was left. I was present during the entire case. Surgeon: Mian Hernandez Type of Anesthesia: General Drains: chairez Estimated Blood Loss (mL): 50 Admit VTE Documentation VTE Present on Admission: No VTE Mechan Device Prophylaxis: SCD's VTE Pharm Prophylaxis ordered?: No
[2022-12-22 12:42] LABS: Bedside Glucose 176 mg/dL (74-106)
[2022-12-22] MEDS: Rizatriptan Benzoate 10 MG Tablet PO (19:45)
[2022-12-22] MEDS: Ciprofloxacin 400 MG/200 ML BAG 200 MG IV (22:34)
[2022-12-22] MEDS: Docusate Sodium 100 MG Capsule 200 MG PO (22:37)
[2022-12-23] VITALS (7 sets, daily range): BP systolic 111–142; BP diastolic 67–85; PULSE 104–107; RESP 18; TEMP 36.6–37.2; O2SAT 94–98
[2022-12-23] MEDS: Lactated Ringers 1,000 ML 125 ML IV (04:59)
--- NOTE | 2022-12-23 07:26 | PCM.PN.GU ---
Subjective Subjective Status post robotic radical prostatectomy surgery went really well he is doing well this morning she will go home today with a catheter after he he has breakfast and lunch he will need to go home the Jane to leg bag and a large bag and teaching annual follow-up in 10 days or have the catheter removed Objective Data Objective Data Vital Signs: Vital Signs Temp Pulse Resp BP Pulse Ox O2 Del Method O2 Flow Rate 97.8 F 107 H 18 111/85 H 96 Room Air 2 12/23/22 04:46 12/23/22 04:46 12/23/22 04:46 12/23/22 04:46 12/23/22 04:46 12/23/22 04:46 12/22/22 14:45 Oxygen Flow Rate (L/min) 2 Oxygen Delivery Method Room Air Weight: 109.4 kg Body Mass Index (BMI) 34.6 Intake & Output: Intake and Output for Last 24 Hours 12/21/22 12/22/22 12/23/22 23:59 23:59 23:59 Intake Total 4032.92 / 4032.92 877.08 / 877.08 Output Total 2930 / 2930 1000 / 1000 Balance 1102.92 / 1102.92 -122.92 / -122.92 Lab / Micro Data 12/13/22 09:04 Labs: Laboratory Results - last 24 hr 12/22/22 06:28: POC Glucose 144 H 12/22/22 11:48: POC Glucose 176 H
[2022-12-23] MEDS: Docusate Sodium 100 MG Capsule 200 MG PO (08:28)
[2022-12-23] MEDS: Atenolol 25 MG Tablet PO (08:28)
[2022-12-23] MEDS: Mag Hydrox/Al Hydrox/Simeth 30 ML UDC PO (08:32)
[2022-12-23] MEDS: Ciprofloxacin 400 MG/200 ML BAG 200 MG IV (08:32)
--- NOTE | 2022-12-23 10:58 | PHA.DC_ITS ---
Pharmacy [facility] Service has performed discharge medication reconciliation and counseling for this patient. The patient was counseled on the following discharge medications and changes in medications for homegoing were reviewed. 1. CIPRO 2. DOCUSATE 3. OXYCODONE The Reason for Use, instructions for use, and potential side effects were reviewed for all new medications. The patient's questions regarding all of their medications were answered. The patient was able to verbally demonstrate an understanding of their discharge medications. The patient's discharge medication list was reviewed for discrepancies and discrepancies were resolved. Patient counselled by Mack Dumont, KileyD Candidate Medications at Discharge Home Medications aspirin 81 mg tablet,delayed release 81 mg PO DAILY@0800 09/12/20 sumatriptan succinate 50 mg tablet 50 mg PO ONCE PRN migraine headache 11/11/20 atenolol 25 mg tablet 25 mg PO DAILY #90 tabs 03/04/22 pravastatin 40 mg tablet 40 mg PO QHS #90 tabs 10/14/22 ascorbic acid (vitamin C) 500 mg tablet (Vitamin C) 1 g PO DAILY 12/08/22 cinnamon bark 500 mg capsule (Cinnamon) 1,000 mg PO DAILY 12/08/22 omeg3-epa 150 mg-dha 100 mg-fish oil-flaxseed oil 333 mg-E 61 unit cap 1 cap PO DAILY 12/08/22 ciprofloxacin HCl 500 mg tablet (Cipro) 500 mg PO BID #20 tabs 12/22/22 docusate sodium 100 mg capsule (Colace) 100 mg PO BID #20 caps 12/22/22 oxycodone 5 mg tablet 5 mg PO Q6H PRN pain 7 days #14 tabs 12/22/22
--- NOTE | 2022-12-23 12:52 | CHAPLAIN ---
Type of Pastoral Visit _x__ Initial Visit ___ Follow-up Visit ___ On-call Visit ___ General Patient Visit ___ Spiritual Assessment ___ Family Conference ___ Bereavement ___ Rapid Response ___ Code Blue ___ Other (describe below) Pastoral Care Referral From _x__ Patient ___ Family ___ Nurse ___ Physician ___ Flight Nurse ___ Ad Setter ___ Other (describe below) Sacrament/Intervention _x__ Active listening ___ Anointing ___ Scientology ___ Bereavement ___ Communion ___ Michaela exploration ___ ___ Life review _x__ Prayer ___ Reconciliation ___ Sacrament of Sick ___ Supportive presence ___ Wedding ___ Other (describe below) Pastoral Comments patient is feeling nauseous and asks for RN to come to room after a brief time of talking and a prayer; Rn contacted
== END 2022-12-23 13:39 | disposition home or self-care (01) ==
LOC: SDC 11:42 → MS3 11:42
PROVIDERS: Anesthesiology; Admitting Provider Urology; PCP Family Medicine; Referring Provider Urology; Visit Provider Urology
PROC: 0VT04ZZ Resection of Prostate, Percutaneous Endoscopic Approach (ICD-10-PCS; CPT 55866; principal; 2022-12-22 07:10)
DX: C61 Malignant neoplasm of prostate (principal); I25.10 Atherosclerotic heart disease of native coronary artery without angina pectoris; K40.90 Unilateral inguinal hernia, without obstruction or gangrene, not specified as recurrent; Z95.1 Presence of aortocoronary bypass graft; Z79.899 Other long term (current) drug therapy; Z79.82 Long term (current) use of aspirin; R97.20 Elevated prostate specific antigen [PSA]; R94.31 Abnormal electrocardiogram [ECG] [EKG]; R00.1 Bradycardia, unspecified; E78.00 Pure hypercholesterolemia, unspecified; M19.90 Unspecified osteoarthritis, unspecified site; N40.0 Benign prostatic hyperplasia without lower urinary tract symptoms; E66.9 Obesity, unspecified
CPT/HCPCS: 55866; 49650; 00865; 36415; 82962; 85027; 86850; 86900; 86901; 88304; 88305; 88307; 88309; 93005; 94668; 96361; 96365; 96366; 99221; 99252; J7120; C1781; G0378; G0463; J0744; J2405

== ENCOUNTER 2023-01-02 00:59 | Emergency (ER) | payer MEDICARE, OTHER, SELFPAY ==
[2021-02-20 07:10] VITALS: BMI 33.5
[2023-01-02 01:00] VITALS: BP 191/101; PULSE 66; RESP 18; TEMP 36.1; O2SAT 99; BMI 24.1
[2023-01-02 01:03] VITALS: BP 191/101; PULSE 66; RESP 18; TEMP 36.1; O2SAT 97
--- NOTE | 2023-01-02 01:19 | EX.ED.DYSGE1 ---
HPI History of Present Illness Chief Complaint: Jane C/O Narrative Narrative: Patient presents with questions about Jane catheter. Patient had radical prostatectomy approximately 12 days ago. He has been doing well. His urine has been draining well. But they noticed that his urine has gotten darker during the day. He is also getting leaking around the catheter and tip of the penis. The catheter is also irritating the tip of his penis. He is not really having pain anywhere. No abdominal pain. No nausea vomiting diarrhea. He is still passing urine but it looks darker nunes or brown than normal. No visible blood has been seen. No fevers. He is due to have the catheter out in about 2 to 3 days. [facility] Medical History Arthritis Atherosclerotic heart disease of [place] coronary artery without angina pectoris BPH (benign prostatic hyperplasia) Cancer Cardiology follow-up encounter COVID-19 (04/2020) Diabetes Essential (primary) hypertension High cholesterol History of echocardiogram History of Holter monitoring History of migraine headaches History of pain when walking History of stress test Hyperlipidemia Idioventricular rhythm IFG (impaired fasting glucose) Injury of head and neck Migraines Non-smoker Non-sustained ventricular tachycardia Nonrheumatic mitral (valve) insufficiency Nonrheumatic mitral (valve) prolapse Obesity Osteoarthritis Postoperative atrial fibrillation (10/20/20) Secondary pulmonary arterial hypertension Thrombus of right radial artery (10/15/20) Wears glasses [facility] Medications aspirin 81 mg tablet,delayed release 81 mg PO DAILY@0800 09/12/20 [History Last Taken 12/05/22] sumatriptan succinate 50 mg tablet 50 mg PO ONCE PRN migraine headache 11/11/20 [History Last Taken 12/20/22] atenolol 25 mg tablet 25 mg PO DAILY #90 tabs 03/04/22 [Rx Last Taken 12/21/22] pravastatin 40 mg tablet 40 mg PO QHS #90 tabs 10/14/22 [Rx Last Taken 12/21/22] ascorbic acid (vitamin C) 500 mg tablet (Vitamin C) 1 g PO DAILY 12/08/22 [History Last Taken 12/21/22] cinnamon bark 500 mg capsule (Cinnamon) 1,000 mg PO DAILY 12/08/22 [History Last Taken 12/21/22] omeg3-epa 150 mg-dha 100 mg-fish oil-flaxseed oil 333 mg-E 61 unit cap 1 cap PO DAILY 12/08/22 [History Last Taken 12/11/22] ciprofloxacin HCl 500 mg tablet (Cipro) 500 mg PO BID #20 tabs 12/22/22 [Rx Last Taken Unknown] docusate sodium 100 mg capsule (Colace) 100 mg PO BID #20 caps 12/22/22 [Rx Last Taken Unknown] oxycodone 5 mg tablet 5 mg PO Q6H PRN pain 7 days #14 tabs 12/22/22 [Rx Last Taken Unknown] Allergy/AdvReac Type Severity Reaction Status Date / Time codeine Allergy Intermediate Nausea Verified 01/02/23 00:59 fentanyl Allergy Intermediate hypotension Verified 01/02/23 00:59 Family History Mother Parkinson's disease Migraines Father Diabetes AAA (abdominal aortic aneurysm) Brother Diabetes Hypertension CVA (cerebral vascular accident) age 77 cardiac arrest Grandmother Heart disease Grandfather Cancer Prostate Son Migraines Son Migraines Daughter Migraines Surgical History H/O coronary artery bypass surgery (10/13/20) History of arthroscopy of left knee (2012) History of cardiac catheterization History of left heart catheterization (09/15/20) History of mitral valve repair (10/13/20) History of tonsillectomy (1954) History of total left hip replacement (2012) History of total right hip replacement (2011) Social History Smoking Status: Never smoker alcohol intake: never substance use type: does not use ROS ROS ED ROS Narrative A complete review of systems was performed and is negative except as documented in the history of present illness. Some specific details below. Constitutional: No recent fevers or chills. No malaise. He generally feels well. EYE: No visual complaints ENT: No difficulty swallowing. No swelling. No pain. CV: No chest pain or palpitations. Respiratory: No dyspnea. No hemoptysis. No difficulty taking breaths. GI: No nausea vomiting diarrhea or abdominal pain. He is eating and drinking well. No flank pain. : See history of present illness. Musculoskeletal: No recent trauma. No pains. Skin: No rash. Nondiaphoretic. Neuro: No weakness or numbness. Endocrine: No polyuria or polydipsia. EXAM Physical Exam Narrative Exam Narrative: CONSTITUTIONAL: Patient is nontoxic in appearance. The patient looks comfortable. HEENT: No notable trauma. Mucous membranes minimally dry. No sinus tenderness. No indication of pain with swallowing. EYES: No conjunctival injection. No proptosis. CARDIOVASCULAR: Regular rate. Regular rhythm. No notable murmur. No JVD seen. RESPIRATORY: No respiratory distress. Breathing is unlabored. No wheezes. GASTROINTESTINAL: Not distended. Bowel sounds are normal. No tenderness. No guarding. No rebound. No palpable mass. No bruit. He has multiple port sites that all look well-healed closed and noninfected in his abdomen. Minimal bruising around them. GENITOURINARY: No inflammatory changes at the tip of the penis. Catheter is in place. It is draining slightly darker brown urine that I would normally expect. This could be some resolving blood or dehydration concentration. MUSCULOSKELETAL: Atraumatic. No peripheral edema. NEUROLOGICAL: Patient is alert and appropriate. No focal deficit noted. SKIN: No noted rashes. No diaphoresis. No jaundiced. PSYCHIATRIC: Patient is calm. Mood is appropriate. Const Vital Signs: 01/02/23 01:00 01/02/23 01:03 Temperature 97 F L 97 F L Temperature Source Temporal Temporal Pulse Rate 66 66 Respiratory Rate 18 18 Blood Pressure 191/101 H 191/101 H Blood Pressure Mean 131 131 Pulse Ox 99 97 MDM MDM MDM Narrative Medical decision making narrative: Patient CBC is normal including white count hemoglobin and platelets. Patient's electrolytes are overall normal. No sign of acute kidney injury. Glucose is mildly up at 131 but this can be rechecked and followed as an outpatient. Patient's urinalysis shows no sign of infection but there is some red blood cells. The nurse irrigated the patient's Jane. He had about 175 to 200 cc in the bladder before irrigation. She was able to get small amount of may be darker clot out. It seems to be running much quicker now varies easily and he is putting out a lot more urine. I think he had a small obstruction that was causing some discomfort and overflow. This is probably a process of healing as resolving clot formation goes away. He is watched here. He still putting out good urine is comfortable following up with his urologist. I do not think he needs antibiotics or further imaging. Lab Data Attestation: I reviewed the patient's lab results. Labs: Laboratory Results - last 24 hr 01/02/23 01/02/23 01:30 01:56 WBC 7.3 RBC 4.55 L Hgb 15.0 Hct 44.8 MCV 98.5 H MCH 33.0 H MCHC 33.5 RDW Std Deviation 46.1 H RDW Coeff of Gerardo 12.7 Plt Count 269 MPV 8.9 Immature Gran % (Auto) 0.500 Neut % (Auto) 66.5 Lymph % (Auto) 20.4 Stark % (Auto) 8.2 Eos % (Auto) 3.7 Baso % (Auto) 0.7 Absolute Neuts (auto) 4.9 Absolute Lymphs (auto) 1.49 Nucleated RBC % 0 Sodium 138 Potassium 4.0 Chloride 105 Carbon Dioxide 29.0 Anion Gap 4 L BUN 18 Creatinine 1.13 Estim Creat Clear Calc 61.91 Est GFR (MDRD) Af Amer 82 Est GFR (MDRD) Non-Af 68 BUN/Creatinine Ratio 15.9 Glucose 131 H Calcium 9.2 Urine Color Yellow Urine Clarity Clear Urine pH 5.0 Ur Specific [place] 1.015 Urine Protein 30 H Urine Glucose (UA) Normal Urine Ketones Negative Urine Occult Blood 250 H Urine Nitrite Negative Urine Bilirubin Negative Urine Urobilinogen Normal Ur Leukocyte Esterase 100 H Urine RBC 10-25 SEEN Urine WBC 0-5 SEEN Ur Squamous Epith Cells 0 SEEN Urine Bacteria RARE Urine Mucus 0 SEEN Discharge Plan Triage Chief Complaint: Jane C/O ED Provider: John Smith Dx/Rx/DC Orders Clinical Impression: History of radical prostatectomy, Acute urinary retention, Obstructed Jane catheter Instructions: Indwelling Urinary Catheter Dc, ED Urinary Retention, Male Prescriptions: No Action sumatriptan succinate 50 mg tablet 50 mg PO ONCE PRN (Reason: migraine headache) atenolol 25 mg tablet 25 mg PO DAILY Qty: 90 3RF aspirin 81 MG tablet 81 mg PO DAILY@0800 [id number]-dha-fish oil-flax-E [phone] la-ne-xf-unit capsule 1 cap PO DAILY cinnamon bark [Cinnamon] 500 mg capsule 1,000 mg PO DAILY ascorbic acid (vitamin C) [Vitamin C] 500 mg tablet 1 g PO DAILY oxycodone 5 mg tablet 5 mg PO Q6H PRN (Reason: pain) 7 Days Qty: 14 0RF docusate sodium [Colace] 100 mg capsule 100 mg PO BID Qty: 20 0RF ciprofloxacin HCl [Cipro] 500 mg tablet 500 mg PO BID Qty: 20 0RF pravastatin 40 mg tablet 40 mg PO QHS Qty: 90 3RF Primary Care Provider: Nehemiah Montenegro Referrals: Mian Hernandez MD [Med Staff - Active Staff] - Keep Heidi appointment Nehemiah Montenegro DO [Primary Care Provider] - Disposition Disposition: Home, Self Care
[2023-01-02] MEDS: 0.9% Normal Saline 1,000 ML 1000 ML IV (01:34)
[2023-01-02 02:00] LABS: Mucous, Urine 0 SEEN /hpf (<or=2+); Squamous Epithelial Cells - UA 0 SEEN /hpf (0-5)
[2023-01-02 02:03] VITALS: BP 178/85; PULSE 70; RESP 16; TEMP 36.9; O2SAT 97
[2023-01-02 02:08] LABS: Color, Urine Yellow (Yellow); Glucose, Dipstick Normal (Normal); Ketone-Dipstick Negative (Negative); Leukocyte Esterase-Dipstick 100 /ul (Negative); Nitrite-Dipstick Negative (Negative); Occult Blood-Urine 250 /ul (Negative); Protein-Dipstick 30 mg/dl (Negative); Specific Gravity, Urine 1.015 (1.002-1.030); Urine Bilirubin Dipstick Negative (Negative); Urine Clarity Clear (Clear); Urine Urobilinogen Normal (Normal)
[2023-01-02 02:17] LABS: Anion Gap 4 (5-15); BUN 18 mg/dL (7-18); BUN/Creat Ratio 15.9 RATIO (10-20); Calcium,Total 9.2 mg/dL (8.5-10.1); Chloride 105 mmol/L (98-107); Creatinine, Serum 1.13 mg/dL (0.70-1.30); EST Glomerular Filtration Rate 68 mL/min (>60); Est Glom Filt Rate - Afr Amer 82 mL/min (>60); Estimated Creatinine Clearance 61.91 ml/min; Glucose 131 mg/dL (74-106); Sodium Level 138 mmol/L (136-145)
[2023-01-02 02:28] LABS: White Blood Cells 0-5 SEEN /hpf (0-5)
[2023-01-02 02:29] LABS: Bacteria RARE /hpf (None Seen); Red Blood Cells-Urine 10-25 SEEN /hpf (0-5)
[2023-01-02 02:51] LABS: Absolute Lymphocyte Count 1.49 X10^3/uL (0.83-4.51); Absolute Neutrophil Count 4.9 X10^3/uL (2.0-7.7); Basophil# 0.05 X10^3/uL; Basophil% 0.7 % (0-1); Eosinophil# 0.27 X10^3/uL; Eosinophils% 3.7 % (0-5); Hematocrit 44.8 % (40-54); Lymphocyte # 1.49 X10^3/ul (0.83-4.51); Lymphocyte % 20.4 % (19-41); Mean Corp Hgb Conc 33.5 g/dL (32-36); Mean Corpuscular Volume 98.5 fL (80-94); Mean Platelet Vol. 8.9 fl (6.2-12.0); Monocyte% 8.2 % (0-10); NRBC Flagged by Analyzer 0 % (0-5); Neutrophil # 4.85 X10^3/uL (2.7-7.7); Neutrophil % 66.5 % (47-70); Platelet Count 269 K/mm3 (150-450); RBC Distribution Width CV 12.7 % (11.6-14.6); RBC Distribution Width SD 46.1 fl (35.1-43.9); Red Blood Count 4.55 M/mm3 (4.6-6.2); White Blood Count 7.3 K/mm3 (4.4-11.0)
[2023-01-02 03:04] VITALS: BP 150/74; PULSE 70; RESP 16; TEMP 36.7; O2SAT 96
[2023-01-02 03:29] VITALS: BP 155/75
== END 2023-01-02 03:30 | disposition home or self-care (01) ==
PROVIDERS: Emergency Provider Emergency Medicine; PCP Family Medicine; Visit Provider Emergency Medicine
DX: T83.091A Other mechanical complication of indwelling urethral catheter, initial encounter (principal); X58.XXXA Exposure to other specified factors, initial encounter; R33.8 Other retention of urine; I25.10 Atherosclerotic heart disease of native coronary artery without angina pectoris; I10 Essential (primary) hypertension; E78.00 Pure hypercholesterolemia, unspecified; Z90.79 Acquired absence of other genital organ(s); Z95.1 Presence of aortocoronary bypass graft; Z79.82 Long term (current) use of aspirin; Z79.899 Other long term (current) drug therapy; Z86.16 Personal history of COVID-19
CPT/HCPCS: 80048; 81001; 85025; 87086; 96360; 96361; 99283; J7030

== ENCOUNTER 2023-01-23 04:23 | Emergency (ER) | payer MEDICARE, OTHER, SELFPAY ==
[2021-02-20 07:10] VITALS: BMI 33.5
[2023-01-23 04:24] VITALS: BP 176/80; PULSE 68; RESP 16; TEMP 36.7; O2SAT 97; BMI 33.5
[2023-01-23 04:46] VITALS: O2SAT 97
--- NOTE | 2023-01-23 04:48 | ED.VIS.FALL ---
HPI HPI - Fall History of Present Illness Chief Complaint: Fall Narrative Narrative: 72-year-old male with history of prostate cancer status post radical resection of prostate about a month ago currently residing in his basement at night due to having get up and urinate frequently throughout the night. Patient states he is unsure of what exactly happened although he got up to use the restroom and somehow he fell. He does not believe he tripped on anything. He states he fell backwards and he hit his head with positive LOC. Unknown downtime. relates that she heard him at some point yelling for help. She came downstairs he notes that he was laying on the floor on his back and lower extremities were tucked behind his knees. She helped him get into a position of comfort. He complains of some mild right ankle pain and some left shoulder pain but is able to move all 4 extremities without much difficulty. He does complain of pain in the neck and in the head. He states he has tingling going down the bilateral upper extremities. No numbness or tingling. Patient states he is not on any blood thinners. He denies chest pain or shortness of breath. Denies fever or chills. He does have urinary frequency and status post resection of his prostate [facility] Medical History Arthritis Atherosclerotic heart disease of [place] coronary artery without angina pectoris BPH (benign prostatic hyperplasia) Cancer Cardiology follow-up encounter COVID-19 (04/2020) Diabetes Essential (primary) hypertension High cholesterol History of echocardiogram History of Holter monitoring History of migraine headaches History of pain when walking History of stress test Hyperlipidemia Idioventricular rhythm IFG (impaired fasting glucose) Injury of head and neck Migraines Non-smoker Non-sustained ventricular tachycardia Nonrheumatic mitral (valve) insufficiency Nonrheumatic mitral (valve) prolapse Obesity Osteoarthritis Postoperative atrial fibrillation (10/20/20) Secondary pulmonary arterial hypertension Thrombus of right radial artery (10/15/20) Wears glasses [id number] [facility] Medications aspirin 81 mg tablet,delayed release 81 mg PO DAILY@0800 09/12/20 [History Last Taken 12/05/22] sumatriptan succinate 50 mg tablet 50 mg PO ONCE PRN migraine headache 11/11/20 [History Last Taken 12/20/22] atenolol 25 mg tablet 25 mg PO DAILY #90 tabs 03/04/22 [Rx Last Taken 12/21/22] pravastatin 40 mg tablet 40 mg PO QHS #90 tabs 10/14/22 [Rx Last Taken 12/21/22] ascorbic acid (vitamin C) 500 mg tablet (Vitamin C) 1 g PO DAILY 12/08/22 [History Last Taken 12/21/22] cinnamon bark 500 mg capsule (Cinnamon) 1,000 mg PO DAILY 12/08/22 [History Last Taken 12/21/22] omeg3-epa 150 mg-dha 100 mg-fish oil-flaxseed oil 333 mg-E 61 unit cap 1 cap PO DAILY 12/08/22 [History Last Taken 12/11/22] ciprofloxacin HCl 500 mg tablet (Cipro) 500 mg PO BID #20 tabs 12/22/22 [Rx Last Taken Unknown] docusate sodium 100 mg capsule (Colace) 100 mg PO BID #20 caps 12/22/22 [Rx Last Taken Unknown] oxycodone 5 mg tablet 5 mg PO Q6H PRN pain 7 days #14 tabs 12/22/22 [Rx Last Taken Unknown] Allergy/AdvReac Type Severity Reaction Status Date / Time codeine Allergy Intermediate Nausea Verified 01/23/23 04:29 fentanyl Allergy Intermediate hypotension Verified 01/23/23 04:29 Family History Mother Parkinson's disease Migraines Father Diabetes AAA (abdominal aortic aneurysm) Brother Diabetes Hypertension CVA (cerebral vascular accident) age 77 cardiac arrest Grandmother Heart disease Grandfather Cancer Prostate Son Migraines Son Migraines Daughter Migraines Surgical History H/O coronary artery bypass surgery (10/13/20) History of arthroscopy of left knee (2012) History of cardiac catheterization History of left heart catheterization (09/15/20) History of mitral valve repair (10/13/20) History of tonsillectomy (1954) History of total left hip replacement (2012) History of total right hip replacement (2011) Social History Smoking Status: Never smoker alcohol intake: never substance use type: does not use ROS ROS ED Constitutional Constitutional ED: Denies chills or fever(s) Eyes Eyes: Denies change in vision or diplopia ENT ENT ED: Denies rhinorrhea or sore throat Cardiovascular Cardiovascular: Denies chest pain or palpitations Respiratory/Chest Respiratory/Chest: Denies cough or dyspnea Gastrointestinal Gastrointestinal: Denies abdominal pain Genitourinary Genitourinary ED: Reports urinary frequency Musculoskeletal Musculoskeletal: Reports neck pain and other Details: Left shoulder pain, right ankle pain Integumentary Denies abscess or Abrasions Neurologic Neurologic: Reports headache(s) and paresthesias RUE and LUE Psychiatric Psychiatric: Denies anxiety or depression EXAM Physical Exam Const Vital Signs: 01/23/23 04:24 01/23/23 04:46 01/23/23 07:40 Temperature 98.0 F Temperature Source Temporal Pulse Rate 68 Respiratory Rate 16 Respiratory Effort Normal Respiratory Depth Normal Respiratory Pattern Normal Blood Pressure 176/80 H Blood Pressure Mean 112 Pulse Ox 97 97 Oxygen Delivery Method Room Air Room Air Room Air 01/23/23 07:42 Temperature Temperature Source Pulse Rate 87 Respiratory Rate 16 Respiratory Effort Respiratory Depth Respiratory Pattern Blood Pressure 187/91 H Blood Pressure Mean 123 Pulse Ox 99 Oxygen Delivery Method Room Air Positive well nourished General Appearance ED: NAD HEENT Reports normocephalic and TM's normal bilaterally Negative for contusion or hematoma Eyes PERRL and EOMs intact bilaterally Neck Neck Narrative: Tenderness to palpation of cervical spine midline diffusely no obvious deformities or step-offs. Chest Wall inspection of chest normal Resp normal respiratory effort and no retractions Auscultation: Negative for rales, rhonchi or wheezes Cardio regular rate and regular rhythm GI non-tender Extremity Extremity Narrative: Tenderness to palpation over the AC joint on the left. No obvious deformity. No clavicular pain. Patient able to range the left shoulder without much difficulty although it does elicit pain. No obvious deformity. Tenderness to palpation over the right distal lateral malleolus. There are some swelling in this region. No obvious deformity. Right foot neurovascular intact prescription for all 5 toes. No pain over the base of the metatarsal or navicular. Neuro oriented x3, CN's II-XII intact bilaterally, moves all extremities, no focal motor deficits and no sensory deficits noted Leonard Coma Scale: document GCS findings Spontaneous Obeys Commands Oriented 15 Sensorium / Orientation: alert Motor Exam: strength 5/5 throughout Psych mental status grossly normal MDM MDM MDM Narrative Medical decision making narrative: 72-year-old male presenting after a fall in his basement. He does not think he tripped. He is unsure how he ended up on the ground. His heard him yelling for help. She found him in the basement with his legs tucked under him. He denies any knee pain but states he has right ankle pain. He also complains of left shoulder pain and neck pain. He describes paresthesias rating into the bilateral upper extremities. Denies any chest pain or shortness of breath. Differential at this point includes syncope, concussion, intracranial hemorrhage, scalp contusion, C-spine fracture, cervical strain, dehydration, electrolyte abnormalities, acute coronary syndrome, CHF, anemia, UTI, pyelonephritis. Patient maintained in c-collar. Strength and sensory are intact bilaterally. No focal neurologic deficits or lateralizing signs or symptoms. There is a cephalohematoma noted on the scalp on the occiput. No facial trauma. CBC was obtained to assess white blood cell count, hemoglobin, platelets, differential. BMP to assess renal function, electrolytes, glucose. High-sensitivity troponin EKG to assess for ischemia and/or dysrhythmia. CT brain and cervical spine obtained due to the head injury and neck pain. Urinalysis obtained to assess for UTI. CT of the brain and cervical spine were negative. Patient was cleared from his c-collar. He requested liquid pain and was given oxycodone which is tolerated in the past. CBC and BMP unremarkable. High-sensitivity troponin is 10. EKG on my interpretation shows a normal sinus rhythm with a ventricular rate of 67 bpm without sign of ischemic change or ectopy. BNP is normal. Patient cleared medically by safe disc syncope rule. We will obtain a urinalysis to make sure he does not UTI. He feels much better. Is unclear why he fell. Left shoulder x-ray and right ankle x-ray on my interpretation show nothing acute. Patient was ambulated to the ER and was stable. He request to be discharged home. I believe this is reasonable given his work-up is normal. He is given return precautions. Impression: 1. Syncope 2. Closed head injury 3. Cervical strain 4. Left shoulder contusion 5. Right ankle contusion Lab Data Labs: Laboratory Results - last 24 hr 01/23/23 01/23/23 04:55 06:10 WBC 7.5 RBC 4.50 L Hgb 14.7 Hct 45.0 MCV 100.0 H MCH 32.7 H MCHC 32.7 RDW Std Deviation 47.8 H RDW Coeff of Gerardo 12.8 Plt Count 176 MPV 9.5 Immature Gran % (Auto) 0.300 Neut % (Auto) 74.6 H Lymph % (Auto) 16.2 L [place] % (Auto) 6.8 Eos % (Auto) 1.7 Baso % (Auto) 0.4 Absolute Neuts (auto) 5.6 Absolute Lymphs (auto) 1.21 Nucleated RBC % 0 Sodium 141 Potassium 3.9 Chloride 105 Carbon Dioxide 27.0 Anion Gap 9 BUN 19 H Creatinine 0.93 Estim Creat Clear Calc 75.22 Est GFR (MDRD) Af Amer 103 Est GFR (MDRD) Non-Af 85 BUN/Creatinine Ratio 20.5 H Glucose 152 H Calcium 9.2 Troponin I High Sens 10 B-Natriuretic Peptide 38.0 Urine Color Yellow Urine Clarity Sl. Cloudy Urine pH 5.0 Ur Specific [place] 1.030 Urine Protein 15 H Urine Glucose (UA) 50 H Urine Ketones 150 A* Urine Occult Blood 50 H Urine Nitrite Negative Urine Bilirubin Negative Urine Urobilinogen Normal Ur Leukocyte Esterase 100 H Urine RBC 0-5 SEEN Urine WBC 5-10 SEEN Ur Squamous Epith Cells 0-5 SEEN Urine Bacteria RARE Urine Mucus 0 SEEN Radiography Diagnostic Testing: Clinical Impression(s) from Imaging Studies Brain CT 01/23/23 05:00 IMPRESSION: Age-related changes as above, without evidence of acute intracranial hemorrhage in this noncontrast head CT. Scalp injury and sinus disease. Electronically Signed: Rafita Crabtree MD at 5:29 EDT , Cervical Spine CT 01/23/23 05:00 IMPRESSION: Cervical spine without evidence of acute fracture. Neuroforaminal narrowing and central bony spinal canal stenosis. Electronically Signed: Rafita Crabtree MD at 5:40 EDT , Ankle X-Ray 01/23/23 05:10 IMPRESSION: No acute osseous abnormality of the right ankle. Electronically Signed: Rafita Crabtree MD at 6:37 EDT , Chest X-Ray 01/23/23 05:10 IMPRESSION: Chest with no acute disease. Electronically Signed: Rafita Crabtree MD at 6:34 EDT , Shoulder X-Ray 01/23/23 05:10 IMPRESSION: Degenerative change without acute osseous abnormality of the left shoulder. Electronically Signed: Rafita Crabtree MD at 6:32 EDT , Discharge Plan Triage Chief Complaint: Fall ED Provider: Donnie Alejandro Dx/Rx/DC Orders Instructions: ED Head Injury (Adult), ED Neck Sprain or Strain, ED Fainting, Uncertain Cause, ED Fall Prevention Prescriptions: No Action sumatriptan succinate 50 mg tablet 50 mg PO ONCE PRN (Reason: migraine headache) atenolol 25 mg tablet 25 mg PO DAILY Qty: 90 3RF aspirin 81 MG tablet 81 mg PO DAILY@0800 [id number]-dha-fish oil-flax-E [phone] ez-fd-jp-unit capsule 1 cap PO DAILY cinnamon bark [Cinnamon] 500 mg capsule 1,000 mg PO DAILY ascorbic acid (vitamin C) [Vitamin C] 500 mg tablet 1 g PO DAILY oxycodone 5 mg tablet 5 mg PO Q6H PRN (Reason: pain) 7 Days Qty: 14 0RF docusate sodium [Colace] 100 mg capsule 100 mg PO BID Qty: 20 0RF ciprofloxacin HCl [Cipro] 500 mg tablet 500 mg PO BID Qty: 20 0RF pravastatin 40 mg tablet 40 mg PO QHS Qty: 90 3RF Primary Care Provider: Nehemiah Montenegro Referrals: Nehemiah Montenegro DO [Primary Care Provider] - Disposition Disposition: Home, Self Care
[2023-01-23 04:58] LABS: Absolute Lymphocyte Count 1.21 X10^3/uL (0.83-4.51); Absolute Neutrophil Count 5.6 X10^3/uL (2.0-7.7); Basophil# 0.03 X10^3/uL; Basophil% 0.4 % (0-1); Eosinophil# 0.13 X10^3/uL; Eosinophils% 1.7 % (0-5); Hemoglobin 14.7 g/dL (13.0-16.5); Lymphocyte # 1.21 X10^3/ul (0.83-4.51); Lymphocyte % 16.2 % (19-41); Mean Corp Hgb Conc 32.7 g/dL (32-36); Mean Corpuscular Hgb 32.7 pg (27.0-32.0); Mean Platelet Vol. 9.5 fl (6.2-12.0); Monocyte# 0.51 X10^3/uL; Monocyte% 6.8 % (0-10); NRBC Flagged by Analyzer 0 % (0-5); Neutrophil # 5.57 X10^3/uL (2.7-7.7); Neutrophil % 74.6 % (47-70); Platelet Count 176 K/mm3 (150-450); RBC Distribution Width CV 12.8 % (11.6-14.6); RBC Distribution Width SD 47.8 fl (35.1-43.9); White Blood Count 7.5 K/mm3 (4.4-11.0)
--- NOTE | 2023-01-23 05:00 | CT_ITS ---
INDICATION: neck trauma EXAMINATION: CT SPINE - CT Spine Cervical W/O Contrast Injection COMPARISON: None. A radiation dose optimization technique was used for this scan. Findings: Serial CT axial images through the cervical spine, with coronal and sagittal reformatted series. BONES: No evidence of cervical spine fracture or subluxation. No concerning bony lesion or abnormal sclerosis to suggest lesion. Scattered left mastoid air cell opacification, without obvious fracture, lytic bony change or overlying soft tissue swelling. DISCS/JOINTS: Moderate to severe multilevel bilateral neuroforaminal narrowing. There is also at least moderate central bony spinal canal stenosis at the C4-C5 level secondary to posterior disc osteophyte formation. SOFT TISSUES: Soft tissue structures are unremarkable. CT/Spine Cervical without Contras IMPRESSION: Cervical spine without evidence of acute fracture. Neuroforaminal narrowing and central bony spinal canal stenosis. Electronically Signed: Rafita Crabtree MD at 5:40 EDT ,
--- NOTE | 2023-01-23 05:00 | CT_ITS ---
INDICATION: fall EXAMINATION: CT BRAIN - CT Head or Brain W/O Contrast Injection TECHNIQUE: Serial CT axial images were obtained of the head without intravenous contrast. A radiation dose optimization technique was used for this scan. COMPARISON: None. Findings: Serial CT axial images of the head without contrast. BRAIN PARENCHYMA: Diffuse periventricular hypoattenuation likely chronic white matter ischemic changes. diffuse volume loss. No evidence of intraparenchymal hemorrhage or hyperattenuating extra-axial fluid collection. VASCULAR STRUCTURES: Atherosclerotic vascular calcifications. BONES: Frontoethmoid sinus and left maxillary mucosal thickening. SCALP/REMAINING SOFT TISSUES: Posterior scalp hematoma. ASPECTS Score for Acute Strokes, if applicable: 10 CT/Brain/Head without Contrast IMPRESSION: Age-related changes as above, without evidence of acute intracranial hemorrhage in this noncontrast head CT. Scalp injury and sinus disease. Electronically Signed: Rafita Crabtree MD at 5:29 EDT ,
--- NOTE | 2023-01-23 05:10 | RAD_ITS ---
INDICATION: pain EXAMINATION/TECHNIQUE: X-RAY - RIGHT XR Ankle Min 3 Views COMPARISON: None. FINDINGS: 3 views of the right ankle. BONES: Normal anatomic alignment without evidence of fracture or subluxation. No concerning bony lesion or abnormal sclerosis to suggest lesion. JOINTS: No significant degenerative change. SOFT TISSUES: Inferior calcaneal enthesophyte. Small ankle effusion. Atherosclerotic vascular calcifications. Chronic appearing curvilinear calcifications off the distal medial malleolus. RAD/Ankle min 3 Views IMPRESSION: No acute osseous abnormality of the right ankle. Electronically Signed: Rafita Crabtree MD at 6:37 EDT ,
--- NOTE | 2023-01-23 05:10 | RAD_ITS ---
INDICATION: chest pain EXAMINATION/TECHNIQUE: X-RAY - XR Chest 1 View COMPARISON: 10/31/2020 chest radiograph. Findings: Single frontal view of the chest. LUNG PARENCHYMA: No acute focal airspace disease or mass lesion. PLEURA: No pleural effusion. No pneumothorax. HEART/GREAT VESSELS: Cardiomediastinal silhouette is unremarkable. Prosthetic valve. BONES: Median sternotomy wires. RAD/Chest 1 View (Portable) IMPRESSION: Chest with no acute disease. Electronically Signed: Rafita Crabtree MD at 6:34 EDT ,
--- NOTE | 2023-01-23 05:10 | RAD_ITS ---
INDICATION: shoulder pain EXAMINATION/TECHNIQUE: X-RAY - LEFT XR Shoulder Min 2 Views COMPARISON: None. FINDINGS: 2 views left shoulder. BONES: Normal anatomic alignment without evidence of fracture or subluxation. No concerning bony lesion or abnormal sclerosis to suggest lesion. Median sternotomy wires. JOINTS: Moderate glenohumeral joint degenerative change. SOFT TISSUES: Unremarkable. RAD/Shoulder min 2 Views IMPRESSION: Degenerative change without acute osseous abnormality of the left shoulder. Electronically Signed: Rafita Crabtree MD at 6:32 EDT ,
[2023-01-23 05:17] LABS: Anion Gap 9 (5-15); BUN 19 mg/dL (7-18); BUN/Creat Ratio 20.5 RATIO (10-20); Calcium,Total 9.2 mg/dL (8.5-10.1); Chloride 105 mmol/L (98-107); Creatinine, Serum 0.93 mg/dL (0.70-1.30); EST Glomerular Filtration Rate 85 mL/min (>60); Est Glom Filt Rate - Afr Amer 103 mL/min (>60); Estimated Creatinine Clearance 75.22 ml/min; Glucose 152 mg/dL (74-106); Potassium 3.9 mmol/L (3.5-5.1); Sodium Level 141 mmol/L (136-145); Troponin-I HS 10 pg/mL (3.0-78.0)
[2023-01-23] MEDS: 0.9% Normal Saline 1,000 ML 1000 ML IV (05:31)
[2023-01-23 06:14] LABS: Mucous, Urine 0 SEEN /hpf (<or=2+)
[2023-01-23] MEDS: oxyCODONE 5 MG Tablet PO (06:14)
[2023-01-23 06:22] LABS: Color, Urine Yellow (Yellow); Glucose, Dipstick 50 mg/dl (Normal); Leukocyte Esterase-Dipstick 100 /ul (Negative); Nitrite-Dipstick Negative (Negative); Occult Blood-Urine 50 /ul (Negative); Protein-Dipstick 15 mg/dl (Negative); Urine Bilirubin Dipstick Negative (Negative); Urine Clarity Sl. Cloudy (Clear); Urine Urobilinogen Normal (Normal)
[2023-01-23 06:38] LABS: Bacteria RARE /hpf (None Seen); Ketone-Dipstick 150 mg/dl (Negative); Red Blood Cells-Urine 0-5 SEEN /hpf (0-5); Squamous Epithelial Cells - UA 0-5 SEEN /hpf (0-5); White Blood Cells 5-10 SEEN /hpf (0-5)
[2023-01-23 07:42] VITALS: BP 187/91; PULSE 87; RESP 16; O2SAT 99
== END 2023-01-23 08:50 | disposition home or self-care (01) ==
PROVIDERS: Emergency Provider Student in an Organized Health Care Education/Training Program; PCP Family Medicine; Visit Provider Student in an Organized Health Care Education/Training Program
DX: R55 Syncope and collapse (principal); I50.9 Heart failure, unspecified; S09.90XA Unspecified injury of head, initial encounter; S16.1XXA Strain of muscle, fascia and tendon at neck level, initial encounter; S40.012A Contusion of left shoulder, initial encounter; S90.01XA Contusion of right ankle, initial encounter; I25.10 Atherosclerotic heart disease of native coronary artery without angina pectoris; Z86.16 Personal history of COVID-19; W19.XXXA Unspecified fall, initial encounter
CPT/HCPCS: 70450; 71045; 72125; 73030; 73610; 80048; 81001; 83880; 84484; 85025; 93005; 96360; 99285; J7030; A4216

== ENCOUNTER 2023-03-20 22:05 | Inpatient (IN) | payer MEDICARE, OTHER, SELFPAY ==
[2021-02-20 07:10] VITALS: BMI 33.5
[2023-03-20 22:07] VITALS: BP 103/64; PULSE 106; RESP 18; TEMP 36.3; O2SAT 94; BMI 33.0
--- NOTE | 2023-03-20 22:48 | CT_ITS ---
We are attempting to reach an attending provider to discuss findings. An addendum with communication details will be sent when the communication is complete. EXAM: CT ABDOMEN AND PELVIS WITH INTRAVENOUS CONTRAST CLINICAL INDICATION: abd pain chills. Started Cipro on Tuesday for? UTI. Previous prostatectomy. TECHNIQUE: Helically acquired images were obtained of the abdomen and pelvis with intravenous contrast. This CT exam was performed using one or more of the following dose reduction techniques: automated exposure control, adjustment of the mA and/or kV according to patient size, and/or use of iterative reconstruction technique. CONTRAST: IV 100mL [id number] RADIATION DOSE: Total DLP: 1773.51 mGy-cm. COMPARISON: No relevant prior studies available. FINDINGS: LOWER THORAX: Visualized lung bases are clear except for minimal dependent atelectasis. Previous median sternotomy. Coronary artery calcification is present. No significant pericardial effusion. ABDOMEN: LIVER: Mild fatty infiltration of the liver. GALLBLADDER AND BILE DUCTS: Tiny ringlike density seen in the dependent portion of gallbladder near the neck, consistent with a tiny gallstone. No findings of acute cholecystitis or biliary ductal dilatation. PANCREAS: Unremarkable. No focal cystic or solid mass. SPLEEN: Spleen is upper normal in size. ADRENALS: Unremarkable. No nodules. KIDNEYS AND URETERS: Kidneys are normal in size with symmetric nephrograms. Nonspecific perirenal stranding bilaterally. Multiple simple right renal cysts, which require no follow-up. Minimal left pelvocaliectasis; left ureter is slightly dilated as compared to the right. No obstructing ureteral stone. No findings of pyelonephritis. STOMACH AND BOWEL: Stomach is decompressed. No periduodenal inflammatory changes or distended small bowel loops. A few sigmoid diverticula are present, including diverticula arising in the region of the large ring-enhancing pelvic mass which abuts the mid sigmoid colon, with mild mural thickening in this region. PELVIS: APPENDIX: Normal. No evidence of acute appendicitis. BLADDER: Urinary bladder is collapsed and displaced to the right by a large left-sided pelvic mass; a lobulated thin-walled ring-enhancing cystic mass within an incomplete internal septation and extensive surrounding fat stranding is seen within the central to left pelvis, abutting the left pelvic sidewall, and displacing the urinary bladder to the right. This cystic lesion measures up to 9.8 cm in AP diameter by 9.9 cm in transverse diameter by 9.6 cm in cephalocaudal dimension. The surrounding stranding radiates from this lesion superiorly into the mesenteric fat, with this cystic mass and surrounding edema abutting the mid sigmoid colon which shows mild mural thickening. No air bubbles are seen within this fluid collection. Within the right lateral pelvis is a 3.8 x 2.6 centimeter ovoid thin-walled unilocular nonenhancing cystic focus, which may represent a urinary bladder diverticulum. No filling defects are seen within the left femoral or iliac veins. REPRODUCTIVE: Prostate gland is surgically absent. ABDOMEN and PELVIS: INTRAPERITONEAL SPACE: Unremarkable. No ascites or other fluid collection. No free air. BONES/JOINTS: Bilateral total hip prostheses are place with associated streak artifact extending through the lower pelvis. Flowing osteophytes about the lower thoracic disc spaces. Grade 1 anterolisthesis of L4 on L5; L4/5 disc space is fused. Chronic right-sided pars defect noted at L4.. No blastic osseous lesions. SOFT TISSUES: Unremarkable. No discrete abdominal or pelvic wall hernia. VASCULATURE: Abdominal aorta is calcific and is normal in caliber. No AAA. LYMPH NODES: Unremarkable. No enlarged lymph nodes. CT/Abdomen/Pelvis W IV Cont ONLY IMPRESSION: 9.8 cm diameter septated ring-enhancing cystic mass within the central-left pelvis, with extensive surrounding fat stranding, consistent with abscess, possibly a postoperative abscess if the patient''s prostatectomy was recent. Diverticular abscess is a possibility but felt less likely in view of the relatively mild degree of sigmoid mural thickening where the mass abuts the mid sigmoid colon. Decompressed urinary bladder, displaced to the right by the pelvic mass. Minimal left hydronephrosis, consistent with slight compression of the distal left ureter by the left-sided pelvic mass. Normal appendix. No small bowel obstruction. Nonstandard communication protocol initiated. Electronically Signed: Nicholas Zaragoza MD at 0:51 EDT ,
--- NOTE | 2023-03-20 22:48 | RAD_ITS ---
EXAM: XR CHEST, 2 VIEWS CLINICAL INDICATION: fever TECHNIQUE: Frontal and lateral views of the chest. COMPARISON: Previous chest radiographs of 01/23/2023 and 09/03/2020. FINDINGS: LUNGS AND PLEURAL SPACES: Unremarkable. No consolidation or edema. No pneumothorax. No effusion. HEART: Normal heart size and pulmonary vasculature. Prosthetic valve again noted. . MEDIASTINUM: Previous median sternotomy. Thoracic aorta remains minimally elongated. BONES/JOINTS: Thoracic degenerative spurring. SOFT TISSUES: Unremarkable. RAD/Chest PA and Lateral IMPRESSION: No significant interval change. No radiographic evidence of acute cardiopulmonary disease. Electronically Signed: Nicholas Zaragoza MD at 0:20 EDT ,
[2023-03-20] MEDS: 0.9% Normal Saline (1000mL) 1,000 ML 999 ML IV (23:05)
[2023-03-20 23:09] LABS: Mucous, Urine 0 SEEN /hpf (<or=2+)
[2023-03-20 23:14] LABS: Absolute Lymphocyte Count 0.48 X10^3/uL (0.83-4.51); Absolute Neutrophil Count 14.8 X10^3/uL (2.0-7.7); Basophil# 0.07 X10^3/uL; Basophil% 0.4 % (0-1); Eosinophil# 0.01 X10^3/uL; Eosinophils% 0.1 % (0-5); Hematocrit 39.5 % (40-54); Hemoglobin 13.1 g/dL (13.0-16.5); Lymphocyte # 0.48 X10^3/ul (0.83-4.51); Lymphocyte % 2.9 % (19-41); Mean Corp Hgb Conc 33.2 g/dL (32-36); Mean Corpuscular Hgb 32.3 pg (27.0-32.0); Mean Corpuscular Volume 97.3 fL (80-94); Mean Platelet Vol. 8.6 fl (6.2-12.0); Monocyte# 0.89 X10^3/uL; Monocyte% 5.4 % (0-10); NRBC Flagged by Analyzer 0 % (0-5); Neutrophil # 14.77 X10^3/uL (2.7-7.7); Neutrophil % 89.7 % (47-70); POSITIVE DIFFERENTIAL YES; Platelet Count 280 K/mm3 (150-450); RBC Distribution Width CV 13.2 % (11.6-14.6); RBC Distribution Width SD 47.8 fl (35.1-43.9); Red Blood Count 4.06 M/mm3 (4.6-6.2); White Blood Count 16.5 K/mm3 (4.4-11.0)
[2023-03-20 23:15] LABS: Differential Indicated SCAN CRITERIA MET
[2023-03-20 23:15] LABS: Color, Urine Yellow (Yellow); Glucose, Dipstick 50 mg/dl (Normal); Ketone-Dipstick 5 mg/dl (Negative); Leukocyte Esterase-Dipstick 100 /ul (Negative); Nitrite-Dipstick Negative (Negative); Occult Blood-Urine 50 /ul (Negative); Protein-Dipstick 100 mg/dl (Negative); Specific Gravity, Urine 1.025 (1.002-1.030); Urine Bilirubin Dipstick Negative (Negative); Urine Clarity Cloudy (Clear); Urine Urobilinogen 4 mg/dl (Normal)
[2023-03-20 23:22] LABS: Bacteria 2+ /hpf (None Seen); Red Blood Cells-Urine 5-10 SEEN /hpf (0-5); Squamous Epithelial Cells - UA 0-5 SEEN /hpf (0-5); White Blood Cells 10-25 SEEN /hpf (0-5)
[2023-03-20 23:24] LABS: Amorphous Sediment 1+ URATE
[2023-03-20 23:32] LABS: AST(SGOT) 25 U/L (15-37); Alanine Aminotransfer ALT/SGPT 45 U/L (16-61); Albumin, Serum 2.1 g/dL (3.2-5.0); Alkaline Phosphatase 134 U/L (45-117); Anion Gap 8 (5-15); BUN 23 mg/dL (7-18); Bilirubin, Direct 0.35 mg/dL (0.00-0.30); Calcium,Total 9.4 mg/dL (8.5-10.1); Chloride 99 mmol/L (98-107); Creatinine, Serum 1.44 mg/dL (0.70-1.30); EST Glomerular Filtration Rate 51 mL/min (>60); Est Glom Filt Rate - Afr Amer 62 mL/min (>60); Estimated Creatinine Clearance 48.58 ml/min; Globulin 4.7 g/dL (2.2-4.2); Glucose 228 mg/dL (74-106); Lipase 32 U/L (13-75); Potassium 3.4 mmol/L (3.5-5.1); Protein, Total 6.8 g/dL (6.4-8.2); Sodium Level 134 mmol/L (136-145)
[2023-03-20 23:58] LABS: Lactic Acid 2.3 mmol/L (0.4-1.9)
[2023-03-21] VITALS (24 sets, daily range): BP systolic 117–167; BP diastolic 45–80; PULSE 93–122; RESP 16–26; TEMP 36.4–37.5; O2SAT 91–98; BMI 33.3
[2023-03-21 00:01] LABS: Macrocytosis 1+
[2023-03-21] MEDS: Ceftriaxone 1 GM/50 ML BAG IV (00:31)
[2023-03-21] MEDS: Vancomycin HCl 1,500 MG in 0.9% Normal Saline (500mL Bag) 500 ML 250 MG IV (01:29)
[2023-03-21 03:11] LABS: Reflex Lactate? Y
[2023-03-21] MEDS: Ondansetron 4 MG/2 ML Vial IV (04:02)
[2023-03-21] MEDS: Morphine 4 MG/ML Syringe IV (04:02)
[2023-03-21] MEDS: 0.9% Normal Saline (1000mL) 1,000 ML 200 ML IV ×3 (04:07→19:01)
[2023-03-21 04:20] LABS: Lactic Acid 2.3 mmol/L (0.4-1.9)
[2023-03-21] MEDS: Piperacil/Tazobactam 3.375 GM in 0.9% Normal Saline (50mL MB+) 50 ML IV ×3 (04:26→21:18)
--- NOTE | 2023-03-21 05:34 | EDS_ITS ---
HPI History of Present Illness Chief Complaint: Fever Informant: patient and spouse/S.O. Narrative Narrative: Patient is a 72-year-old male with past medical history of hypertension hyperlipidemia coronary artery disease status post CABG 4 years ago and recent diagnosis of prostate cancer undergoing a radical prostatectomy in December 2022. Patient states that for the past 5 to 7 days he has had subjective fevers and generalized fatigue. He reports he went to an urgent care who checked a urine sample on him and informed him there appears to be an infectious process and he was placed on Cipro. He states he has been taking the Cipro as directed for the past 3 to 4 days without any symptom improvement and in fact he now has sensation of pain within the lower abdomen. Therefore with persistent symptoms despite antibiotic use as well as the worsening/new symptom of lower abdominal pain he presents for evaluation [facility] Medical History Arthritis Atherosclerotic heart disease of [place] coronary artery without angina pectoris BPH (benign prostatic hyperplasia) Cancer Cardiology follow-up encounter COVID-19 (04/2020) Diabetes Essential (primary) hypertension High cholesterol History of echocardiogram History of Holter monitoring History of migraine headaches History of pain when walking History of stress test Hyperlipidemia Idioventricular rhythm IFG (impaired fasting glucose) Injury of head and neck Migraines Non-smoker Non-sustained ventricular tachycardia Nonrheumatic mitral (valve) insufficiency Nonrheumatic mitral (valve) prolapse Obesity Osteoarthritis Postoperative atrial fibrillation (10/20/20) Secondary pulmonary arterial hypertension Thrombus of right radial artery (10/15/20) Wears glasses [place] Home Medications aspirin 81 mg tablet,delayed release 81 mg PO DAILY@0800 09/12/20 [History Last Taken 12/05/22] sumatriptan succinate 50 mg tablet 50 mg PO ONCE PRN migraine headache 11/11/20 [History Last Taken 12/20/22] pravastatin 40 mg tablet 40 mg PO QHS #90 tabs 10/14/22 [Rx Last Taken 12/21/22] ascorbic acid (vitamin C) 500 mg tablet (Vitamin C) 1 g PO DAILY 12/08/22 [History Last Taken 12/21/22] cinnamon bark 500 mg capsule (Cinnamon) 1,000 mg PO DAILY 12/08/22 [History Last Taken 12/21/22] omeg3-epa 150 mg-dha 100 mg-fish oil-flaxseed oil 333 mg-E 61 unit cap 1 cap PO DAILY 12/08/22 [History Last Taken 12/11/22] ciprofloxacin HCl 500 mg tablet (Cipro) 500 mg PO BID #20 tabs 12/22/22 [Rx Last Taken Unknown] docusate sodium 100 mg capsule (Colace) 100 mg PO BID #20 caps 12/22/22 [Rx Last Taken Unknown] oxycodone 5 mg tablet 5 mg PO Q6H PRN pain 7 days #14 tabs 12/22/22 [Rx Last Taken Unknown] atenolol 25 mg tablet 25 mg PO DAILY #90 tabs 02/17/23 [Rx Last Taken Unknown] ciprofloxacin HCl 500 mg tablet (Cipro) 500 mg PO Q12H 7 days #14 tabs 03/16/23 [Rx Last Taken Unknown] Allergy/AdvReac Type Severity Reaction Status Date / Time codeine Allergy Intermediate Nausea Verified 03/20/23 22:06 fentanyl Allergy Intermediate hypotension Verified 03/20/23 22:06 Family History Mother Parkinson's disease Migraines Father Diabetes AAA (abdominal aortic aneurysm) Brother Diabetes Hypertension CVA (cerebral vascular accident) age 77 cardiac arrest Grandmother Heart disease Grandfather Cancer Prostate Son Migraines Son Migraines Daughter Migraines Surgical History H/O coronary artery bypass surgery (10/13/20) History of arthroscopy of left knee (2012) History of cardiac catheterization History of left heart catheterization (09/15/20) History of mitral valve repair (10/13/20) History of tonsillectomy (1954) History of total left hip replacement (2012) History of total right hip replacement (2011) Social History Smoking Status: Never smoker alcohol intake: never substance use type: does not use ROS ROS ED Constitutional Constitutional ED: Reports fever(s) and subjective; Denies chills ENT ENT ED: Denies sore throat Cardiovascular Cardiovascular: Denies chest pain Respiratory/Chest Respiratory/Chest: Denies cough or dyspnea Gastrointestinal Gastrointestinal: Reports abdominal pain; Denies diarrhea, nausea or vomiting Genitourinary Genitourinary ED: Denies dysuria Musculoskeletal Musculoskeletal: Denies myalgias Integumentary Denies rash Neurologic Neurologic: Reports weakness; Denies headache(s) Hematologic/Lymphatic Hematologic/Lymphatic: Denies easy bleeding or easy bruising EXAM Physical Exam Const Vital Signs: 03/20/23 22:07 03/20/23 22:17 03/21/23 00:05 Temperature 97.4 F L Temperature Source Temporal Pulse Rate 106 H 93 Respiratory Rate 18 17 Respiratory Effort Normal Blood Pressure 103/64 Blood Pressure Mean 77 Pulse Ox 94 98 Oxygen Delivery Method Room Air Room Air Oxygen Flow Rate (L/min) 03/21/23 01:32 03/21/23 01:43 03/21/23 02:19 Temperature 98.3 F Temperature Source Oral Pulse Rate 93 99 Respiratory Rate 18 18 Respiratory Effort Blood Pressure 120/45 L 120/45 L 139/71 H Blood Pressure Mean 70 70 93 Pulse Ox 98 98 Oxygen Delivery Method Room Air Room Air Oxygen Flow Rate (L/min) 03/21/23 03:08 03/21/23 03:49 03/21/23 05:00 Temperature 98.6 F 98.7 F Temperature Source Oral Oral Pulse Rate 100 113 H 119 H Respiratory Rate 17 16 18 Respiratory Effort Blood Pressure 142/67 H 142/67 H 120/66 Blood Pressure Mean 92 92 84 Pulse Ox 97 96 97 Oxygen Delivery Method Room Air Room Air Nasal Cannula Oxygen Flow Rate (L/min) 2 Positive well nourished, well developed and obese General Appearance ED: well developed; Negative for pallor Nutritional Appearance: obese HEENT Reports moist mucous membranes Eyes PERRL and EOMs intact bilaterally General Eye ED: Negative for scleral icterus Neck supple Neck Narrative: No nuchal rigidity or meningeal signs noted Chest Wall palpation of chest normal Resp normal respiratory effort and clear to auscultation bilaterally Resp Narrative: No nasal flaring retractions tachypnea or accessory muscle use Cardio regular rhythm Rate: tachycardic and other Other Details: Slightly tachycardic rate with regular rhythm No murmurs rubs or gallops noted Radial and carotid pulses equal and symmetric GI non-distended GI Narrative: Abdomen is soft and nondistended with normal active bowel sounds. Patient has mild pain on palpation across the lower abdomen but it is greatest in the right lower quadrant with voluntary guarding but no rebound or rigidity. Negative heel strike and psoas sign but positive obturator sign. Auscultation: normoactive bowel sounds Palpation: soft Back/Spine no CVA tenderness Extremity normal to inspection Neuro oriented x3, CN's II-XII intact bilaterally and no sensory deficits noted Sensorium / Orientation: alert Motor Exam: strength 5/5 throughout Psych mental status grossly normal Skin no rashes or lesions noted General Skin Exam: Negative for jaundice or pallor MDM MDM MDM Narrative Medical decision making narrative: Patient presented to the ER afebrile. reported that his blood pressure was low this morning but upon arrival it is technically normal at 103/64. The patient denies any history of immunosuppression but with persistent fever sensation and fatigue despite taking oral antibiotics there is concern for a polymicrobial or antibiotic resistant urinary tract infection versus appendicitis versus pneumonia versus acute kidney injury versus electrolyte derangement. Secondary to this basic blood work was obtained with chest x-ray and abdominal CT scan. Chest x-ray revealed no acute findings and lab work showed elevation to his white blood cell count at 16.5 with mild lactic acidosis at 2.3. Patient's creatinine is also slightly elevated at 1.44 with baseline being approximately 1. CT scan showed a ring-enhancing mass within the abdomen/pelvis most consistent with abscess. The case was discussed with general surgery who feels that as the patient had a prostatectomy a few months ago and that the area of infection is in the same area of the prostate that this was most likely need to be discussed with urology. General surgery also feels that if the area needs drained to this would most likely be an interventional radiology process. Therefore they recommend continued IV antibiotics and further consult. The case was then discussed with the patient's urologist who agrees with continued IV antibiotics and admission to the hospital as well as interventional radiology consultation for potential drain placement. The case was then discussed with the hospitalist who agrees to accept the patient at this time and based on his septicemia be placed in the ICU for further care. History & Record Review Discussion w/independent historian: Patient and Significant other Lab Data Attestation: I reviewed the patient's lab results. Labs: Laboratory Results - last 24 hr 03/20/23 03/20/23 03/21/23 23:00 23:04 03:24 WBC 16.5 H RBC 4.06 L Hgb 13.1 Hct 39.5 L MCV 97.3 H MCH 32.3 H MCHC 33.2 RDW Std Deviation 47.8 H RDW Coeff of Gerardo 13.2 Plt Count 280 MPV 8.6 Immature Gran % (Auto) 1.500 H Neut % (Auto) 89.7 H Lymph % (Auto) 2.9 L Mclean % (Auto) 5.4 Eos % (Auto) 0.1 Baso % (Auto) 0.4 Absolute Neuts (auto) 14.8 H Absolute Lymphs (auto) 0.48 L Nucleated RBC % 0 Macrocytosis 1+ Sodium 134 L Potassium 3.4 L Chloride 99 Carbon Dioxide 27.0 Anion Gap 8 BUN 23 H Creatinine 1.44 H Estim Creat Clear Calc 48.58 Est GFR (MDRD) Af Amer 62 Est GFR (MDRD) Non-Af 51 L BUN/Creatinine Ratio 16.0 Glucose 228 H Lactic Acid 2.3 H* 2.3 H* Calcium 9.4 Total Bilirubin 0.60 Direct Bilirubin 0.35 H AST 25 ALT 45 Alkaline Phosphatase 134 H Total Protein 6.8 Albumin 2.1 L Globulin 4.7 H Lipase 32 Urine Color Yellow Urine Clarity Cloudy Urine pH 5.0 Ur Specific [place] 1.025 Urine Protein 100 H Urine Glucose (UA) 50 H Urine Ketones 5 H Urine Occult Blood 50 H Urine Nitrite Negative Urine Bilirubin Negative Urine Urobilinogen 4 H Ur Leukocyte Esterase 100 H Urine RBC 5-10 SEEN Urine WBC 10-25 SEEN Ur Squamous Epith Cells 0-5 SEEN Amorphous Sediment 1+ URATE Urine Bacteria 2+ Urine Mucus 0 SEEN Radiography Diagnostic Testing: Clinical Impression(s) from Imaging Studies Abdomen/Pelvis CT 03/20/23 22:48 IMPRESSION: 9.8 cm diameter septated ring-enhancing cystic mass within the central-left pelvis, with extensive surrounding fat stranding, consistent with abscess, possibly a postoperative abscess if the patient''s prostatectomy was recent. Diverticular abscess is a possibility but felt less likely in view of the relatively mild degree of sigmoid mural thickening where the mass abuts the mid sigmoid colon. Decompressed urinary bladder, displaced to the right by the pelvic mass. Minimal left hydronephrosis, consistent with slight compression of the distal left ureter by the left-sided pelvic mass. Normal appendix. No small bowel obstruction. Nonstandard communication protocol initiated. Electronically Signed: Nicholas Zaragoza MD at 0:51 EDT , ADDENDUM: 03/21/23 0105 IMPRESSION: 9.8 cm diameter septated ring-enhancing cystic mass within the central-left pelvis, with extensive surrounding fat stranding, consistent with abscess, possibly a postoperative abscess if the patient''s prostatectomy was recent. Diverticular abscess is a possibility but felt less likely in view of the relatively mild degree of sigmoid mural thickening where the mass abuts the mid sigmoid colon. Decompressed urinary bladder, displaced to the right by the pelvic mass. Minimal left hydronephrosis, consistent with slight compression of the distal left ureter by the left-sided pelvic mass. Normal appendix. No small bowel obstruction. Nonstandard communication protocol initiated. N.B. : The above Results were Read Back by Nicholas Zaragoza MD to Jenny Landrum RN, and understanding confirmed on 03/21/2023 00:58:35 (ET). Electronically Signed: Nicholas Zaragoza MD at 0:51 EDT , Chest X-Ray 03/20/23 22:48 IMPRESSION: No significant interval change. No radiographic evidence of acute cardiopulmonary disease. Electronically Signed: Nicholas Zaragoza MD at 0:20 EDT , 2 view chest x-ray as interpreted by the emergency medicine physician reveals no acute infiltrate pneumothorax or pleural effusion or widening of the mediastinum Management Discussion w/another healthcare provider: Hospitalist, Supervisor Accounts Receivable and Radiologist Critical Care Time Critical Care Time: Yes Critical care time (excluding procedures): Discussing w/Patient &/or Family/Corporate Event Planner, Discussing w/Consultants and - (Critical care time of 33 minutes) Discharge Plan Dx/Rx/DC Orders Clinical Impression: History of prostate cancer, Pelvic abscess, Essential (primary) hypertension, Septicemia Disposition Disposition: Acute Care Hospital [facility]
--- NOTE | 2023-03-21 07:00 | PCM.PN.BLA ---
Progress Note Patient was not seen or observed. Holding orders placed for admission to the intensive care unit to reduce time at ED.
--- NOTE | 2023-03-21 07:36 | ED.RN ---
TOOK HOME DR EYAD BOB AWARE
--- NOTE | 2023-03-21 07:38 | PCM.HP.STD ---
HPI - General General Date of Admission: 03/21/23 Date of Service: 03/21/23 Chief Complaint: Fever and chills HPI Narrative VALENTE CHILDS, is a 72 M who presents with fever and chills.Patient has past medical history single for prostate CA status post laparoscopic robotic assisted radical prostatectomy and bilateral lymph node dissection on 12/22/2022. Patient symptoms started a week prior to his admission. He had apparently been seen at an urgent care center on 03/16/2023 prescribed antibiotics and discharged home. Patient symptoms apparently got worse on the morning of his presentation. Per patient's he collapsed in her arms. Patient denied any dysuria, denied any rectal pain no abdominal pain. Presented to the emergency department patient was found to have 9.8 cm diameter septated ring-enhancing cystic mass within the central-left pelvis, with extensive surrounding fat stranding, consistent with abscess. This was discussed with Dr Hernandez who did perform patient's surgery he thought patient may have an infected seroma. Patient admitted to regular nursing floor for subsequent management [facility] Medical History Arthritis Atherosclerotic heart disease of [place] coronary artery without angina pectoris BPH (benign prostatic hyperplasia) Cancer Cardiology follow-up encounter COVID-19 (04/2020) Diabetes Essential (primary) hypertension High cholesterol History of echocardiogram History of Holter monitoring History of migraine headaches History of pain when walking History of stress test Hyperlipidemia Idioventricular rhythm IFG (impaired fasting glucose) Injury of head and neck Migraines Non-smoker Non-sustained ventricular tachycardia Nonrheumatic mitral (valve) insufficiency Nonrheumatic mitral (valve) prolapse Obesity Osteoarthritis Postoperative atrial fibrillation (10/20/20) Secondary pulmonary arterial hypertension Thrombus of right radial artery (10/15/20) Wears glasses [employer] Home Medications aspirin 81 mg tablet,delayed release 81 mg PO DAILY@0800 09/12/20 [History Last Taken 12/05/22] sumatriptan succinate 50 mg tablet 50 mg PO ONCE PRN migraine headache 11/11/20 [History Last Taken 12/20/22] pravastatin 40 mg tablet 40 mg PO QHS #90 tabs 10/14/22 [Rx Last Taken 12/21/22] ascorbic acid (vitamin C) 500 mg tablet (Vitamin C) 1 g PO DAILY 12/08/22 [History Last Taken 12/21/22] cinnamon bark 500 mg capsule (Cinnamon) 1,000 mg PO DAILY 12/08/22 [History Last Taken 12/21/22] omeg3-epa 150 mg-dha 100 mg-fish oil-flaxseed oil 333 mg-E 61 unit cap 1 cap PO DAILY 12/08/22 [History Last Taken 12/11/22] ciprofloxacin HCl 500 mg tablet (Cipro) 500 mg PO BID #20 tabs 12/22/22 [Rx Last Taken Unknown] docusate sodium 100 mg capsule (Colace) 100 mg PO BID #20 caps 12/22/22 [Rx Last Taken Unknown] oxycodone 5 mg tablet 5 mg PO Q6H PRN pain 7 days #14 tabs 12/22/22 [Rx Last Taken Unknown] atenolol 25 mg tablet 25 mg PO DAILY #90 tabs 02/17/23 [Rx Last Taken Unknown] ciprofloxacin HCl 500 mg tablet (Cipro) 500 mg PO Q12H 7 days #14 tabs 03/16/23 [Rx Last Taken Unknown] Allergy/AdvReac Type Severity Reaction Status Date / Time codeine Allergy Intermediate Nausea Verified 03/20/23 22:06 fentanyl Allergy Intermediate hypotension Verified 03/20/23 22:06 Family History Mother Parkinson's disease Migraines Father Diabetes AAA (abdominal aortic aneurysm) Brother Diabetes Hypertension CVA (cerebral vascular accident) age 77 cardiac arrest Grandmother Heart disease Grandfather Cancer Prostate Son Migraines Son Migraines Daughter Migraines Surgical History H/O coronary artery bypass surgery (10/13/20) History of arthroscopy of left knee (2012) History of cardiac catheterization History of left heart catheterization (09/15/20) History of mitral valve repair (10/13/20) History of tonsillectomy (1954) History of total left hip replacement (2012) History of total right hip replacement (2011) Social History Smoking Status: Never smoker alcohol intake: never substance use type: does not use ROS ROS Narrative GENERAL: dfever, chills, HEENT: denies headache, sinus congestion, or drainage, dysphagia RESPIRATORY: denies cough, sputum production, shortness of breath, dyspnea on exertion CARDIAC: denies chest pain, palpitations, orthopnea, PND GASTROINTESTINAL: denies abdominal pain, nausea, vomiting, melena, GENITOURINARY: denies dysuria, urgency, frequency, heamaturia EXTREMITY: denies swelling MUSCULOSKELETAL: denies current joint pain or tenderness NEUROLOGIC: denies focal numbness, weakness, tingling HEMATOLOGIC: denies easy bruising and/or hemorrhage INTEGUMENT: denies rashes PSYCHIATRIC: denies suicidal or homicidal ideation Vital Signs Vital Signs Vital Signs: 03/20/23 22:07 03/20/23 22:17 03/21/23 00:05 Temperature 97.4 F L Temperature Source Temporal Pulse Rate 106 H 93 Respiratory Rate 18 17 Respiratory Effort Normal Blood Pressure 103/64 Blood Pressure Mean 77 Pulse Ox 94 98 Oxygen Delivery Method Room Air Room Air Oxygen Flow Rate (L/min) 03/21/23 01:32 03/21/23 01:43 03/21/23 02:19 Temperature 98.3 F Temperature Source Oral Pulse Rate 93 99 Respiratory Rate 18 18 Respiratory Effort Blood Pressure 120/45 L 120/45 L 139/71 H Blood Pressure Mean 70 70 93 Pulse Ox 98 98 Oxygen Delivery Method Room Air Room Air Oxygen Flow Rate (L/min) 03/21/23 03:08 03/21/23 03:49 03/21/23 05:00 Temperature 98.6 F 98.7 F Temperature Source Oral Oral Pulse Rate 100 113 H 119 H Respiratory Rate 17 16 18 Respiratory Effort Blood Pressure 142/67 H 142/67 H 120/66 Blood Pressure Mean 92 92 84 Pulse Ox 97 96 97 Oxygen Delivery Method Room Air Room Air Nasal Cannula Oxygen Flow Rate (L/min) 2 03/21/23 07:31 03/21/23 07:32 Temperature 98.2 F Temperature Source Pulse Rate 114 H 113 H Respiratory Rate 16 16 Respiratory Effort Blood Pressure 131/64 H 131/64 H Blood Pressure Mean 86 86 Pulse Ox 96 96 Oxygen Delivery Method Nasal Cannula Oxygen Flow Rate (L/min) 2 Weight Weight: 104.553 kg Body Mass Index (BMI) 33.0 Physical Exam Narrative GENERAL: cooperative HEENT: Atraumatic; normocephalic EYES; Anicteric, Normal Conjunctiva NECK; supple, normal thyroid, RESPIRATORY: Diminished to auscultation CARDIOVASCULAR: Regular S1 S2, tachycardic GI: soft, normoactive bowel sounds, : No Renal angle tenderness; EXTREMITIES: No edema, no clubbing, MUSCULOSKELETAL: no muscle wasting NEURO: Awake; no lateralizing signs. SKIN: No Rash PSYCH; Flat affect Results Lab / Micro Data 03/20/23 23:04 03/20/23 23:04 Labs: Laboratory Results - last 24 hr 03/20/23 23:00: Urine Color Yellow, Urine Clarity Cloudy, Urine pH 5.0, Ur Specific [place] 1.025, Urine Protein 100 H, Urine Glucose (UA) 50 H, Urine Ketones 5 H, Urine Occult Blood 50 H, Urine Nitrite Negative, Urine Bilirubin Negative, Urine Urobilinogen 4 H, Ur Leukocyte Esterase 100 H, Urine RBC 5-10 SEEN, Urine WBC 10-25 SEEN, Ur Squamous Epith Cells 0-5 SEEN, Amorphous Sediment 1+ URATE, Urine Bacteria 2+, Urine Mucus 0 SEEN 03/20/23 23:04: WBC 16.5 H, RBC 4.06 L, Hgb 13.1, Hct 39.5 L, MCV 97.3 H, MCH 32.3 H, MCHC 33.2, RDW Std Deviation 47.8 H, RDW Coeff of Gerardo 13.2, Plt Count 280, MPV 8.6, Immature Gran % (Auto) 1.500 H, Neut % (Auto) 89.7 H, Lymph % (Auto) 2.9 L, [place] % (Auto) 5.4, Eos % (Auto) 0.1, Baso % (Auto) 0.4, Absolute Neuts (auto) 14.8 H, Absolute Lymphs (auto) 0.48 L, Nucleated RBC % 0, Macrocytosis 1+, Sodium 134 L, Potassium 3.4 L, Chloride 99, Carbon Dioxide 27.0, Anion Gap 8, BUN 23 H, Creatinine 1.44 H, Estim Creat Clear Calc 48.58, Est GFR (MDRD) Af Amer 62, Est GFR (MDRD) Non-Af 51 L, BUN/Creatinine Ratio 16.0, Glucose 228 H, Lactic Acid 2.3 H*, Calcium 9.4, Total Bilirubin 0.60, Direct Bilirubin 0.35 H, AST 25, ALT 45, Alkaline Phosphatase 134 H, Total Protein 6.8, Albumin 2.1 L, Globulin 4.7 H, Lipase 32 03/21/23 03:24: Lactic Acid 2.3 H* Radiology Impression Abdomen/Pelvis CT 03/20/23 22:48 IMPRESSION: 9.8 cm diameter septated ring-enhancing cystic mass within the central-left pelvis, with extensive surrounding fat stranding, consistent with abscess, possibly a postoperative abscess if the patient''s prostatectomy was recent. Diverticular abscess is a possibility but felt less likely in view of the relatively mild degree of sigmoid mural thickening where the mass abuts the mid sigmoid colon. Decompressed urinary bladder, displaced to the right by the pelvic mass. Minimal left hydronephrosis, consistent with slight compression of the distal left ureter by the left-sided pelvic mass. Normal appendix. No small bowel obstruction. Nonstandard communication protocol initiated. Electronically Signed: Nicholas Zaragoza MD at 0:51 EDT , ADDENDUM: 03/21/23 0105 IMPRESSION: 9.8 cm diameter septated ring-enhancing cystic mass within the central-left pelvis, with extensive surrounding fat stranding, consistent with abscess, possibly a postoperative abscess if the patient''s prostatectomy was recent. Diverticular abscess is a possibility but felt less likely in view of the relatively mild degree of sigmoid mural thickening where the mass abuts the mid sigmoid colon. Decompressed urinary bladder, displaced to the right by the pelvic mass. Minimal left hydronephrosis, consistent with slight compression of the distal left ureter by the left-sided pelvic mass. Normal appendix. No small bowel obstruction. Nonstandard communication protocol initiated. N.B. : The above Results were Read Back by Nicholas Zaragoza MD to Jenny Landrum RN, and understanding confirmed on 03/21/2023 00:58:35 (ET). Electronically Signed: Nicholas Zaragoza MD at 0:51 EDT , Chest X-Ray 10/15/23 22:48 IMPRESSION: No significant interval change. No radiographic evidence of acute cardiopulmonary disease. Electronically Signed: Nicholas Zaragoaz MD at 0:20 EDT , Assessment & Plan Assessment/Plan (1) Infected seroma, postoperative: PLAN: Plan Patient is a 72-year-old gentleman presenting with fever and chills 1. Sepsis (as evidenced by the presence of an infection?infected seroma, tachycardia, leukocytosis BBC count 16 K, lactic acid level greater than 2.0, acute kidney injury). -Patient admitted to a monitored bed with treatment of the underlying condition 2. Suspected infected seroma at the site of lymph node dissection. -Imaging studies on admission did demonstrate 9.8 cm diameter septated ring-enhancing cystic mass within the central-left pelvis, with extensive surrounding fat stranding, consistent with abscess. This was discussed with Dr Hernandez who did perform patient's surgery he thought patient may have an infected seroma. Plan is to consult interventional radiology for IR drainage 3. Coronary artery disease ? With history of CABG, patient is on guideline directed medical therapy 4. History of prostate CA ?Laparoscopic robotic assisted radical prostatectomy, bilateral lymph node dissection on 12/22/2022 5. Essential hypertension ? Patient blood pressure medications held given his presentation 6. Class I obesity with BMI of 33.1 ? Complicating care, weight loss advised 7. Dyslipidemia -Patient is on statin therapy, continued at home dose 8. Acute kidney injury ? Baseline creatinine from 01/23/2023 was 0.93, patient creatinine on admission was 1.44 started on IV hydration with subsequent monitoring of electrolytes ordered 9. Hypokalemia -Corrected per protocol 10. DVT prophylaxis ? SC heparin Time spent in the patient's overall evaluation,decision-making process, review of diagnostic data, adjustment of management, discussion with other providers, nursing nursing and ancillary staff involved in patient's care documentation, 75 Minutes Advance planning; did discuss with the patient and family regarding advanced directives as well as CODE STATUS. Did explain the various scenarios involved ( FULL CODE, DNR CCA, DNR CCA with no intubation, and DNR CC and what each meant) patient elected full code with CPR and intubation if needed. Order was placed. Time spent on discussion 18 minutes. Charges/Coding Visit Charges Inpatient E&M: 90001 Subs Hosp L3 Procedures Hospitalists Procedures: 42221 Advncd Care Plan 30 Min
--- NOTE | 2023-03-21 08:03 | CON.PCM.UR_ITS ---
HPI Consult Data Date of Consult: 03/21/23 HPI Narrative Reason for Consultation: postoperative seroma HPI Narrative: VALENTE CHILDS, is a 72 M who presents with what appears to be an infection he had elevated white blood count fever and was not feeling well was brought into the emergency room CT scan was done because of pain in the lower abdomen which demonstrates a right-sided fluid collection I suspect this is a seroma it could be infected so I recommend we do a CT-guided drainage of the seroma and place a pigtail catheter by [facility] interventional [facility] Medical History Arthritis Atherosclerotic heart disease of [place] coronary artery without angina pectoris BPH (benign prostatic hyperplasia) Cancer Cardiology follow-up encounter COVID-19 (04/2020) Diabetes Essential (primary) hypertension High cholesterol History of echocardiogram History of Holter monitoring History of migraine headaches History of pain when walking History of stress test Hyperlipidemia Idioventricular rhythm IFG (impaired fasting glucose) Injury of head and neck Migraines Non-smoker Non-sustained ventricular tachycardia Nonrheumatic mitral (valve) insufficiency Nonrheumatic mitral (valve) prolapse Obesity Osteoarthritis Postoperative atrial fibrillation (10/20/20) Secondary pulmonary arterial hypertension Thrombus of right radial artery (10/15/20) Wears glasses [employer] Home Medications aspirin 81 mg tablet,delayed release 81 mg PO DAILY@0800 09/12/20 [History Last Taken 12/05/22] sumatriptan succinate 50 mg tablet 50 mg PO ONCE PRN migraine headache 11/11/20 [History Last Taken 12/20/22] pravastatin 40 mg tablet 40 mg PO QHS #90 tabs 10/14/22 [Rx Last Taken 12/21/22] ascorbic acid (vitamin C) 500 mg tablet (Vitamin C) 1 g PO DAILY 12/08/22 [History Last Taken 12/21/22] cinnamon bark 500 mg capsule (Cinnamon) 1,000 mg PO DAILY 12/08/22 [History Last Taken 12/21/22] omeg3-epa 150 mg-dha 100 mg-fish oil-flaxseed oil 333 mg-E 61 unit cap 1 cap PO DAILY 12/08/22 [History Last Taken 12/11/22] ciprofloxacin HCl 500 mg tablet (Cipro) 500 mg PO BID #20 tabs 12/22/22 [Rx Last Taken Unknown] docusate sodium 100 mg capsule (Colace) 100 mg PO BID #20 caps 12/22/22 [Rx Last Taken Unknown] oxycodone 5 mg tablet 5 mg PO Q6H PRN pain 7 days #14 tabs 12/22/22 [Rx Last Taken Unknown] atenolol 25 mg tablet 25 mg PO DAILY #90 tabs 02/17/23 [Rx Last Taken Unknown] ciprofloxacin HCl 500 mg tablet (Cipro) 500 mg PO Q12H 7 days #14 tabs 03/16/23 [Rx Last Taken Unknown] Allergy/AdvReac Type Severity Reaction Status Date / Time codeine Allergy Intermediate Nausea Verified 03/20/23 22:06 fentanyl Allergy Intermediate hypotension Verified 03/20/23 22:06 Family History Mother Parkinson's disease Migraines Father Diabetes AAA (abdominal aortic aneurysm) Brother Diabetes Hypertension CVA (cerebral vascular accident) age 77 cardiac arrest Grandmother Heart disease Grandfather Cancer Prostate Son Migraines Son Migraines Daughter Migraines Surgical History H/O coronary artery bypass surgery (10/13/20) History of arthroscopy of left knee (2012) History of cardiac catheterization History of left heart catheterization (09/15/20) History of mitral valve repair (10/13/20) History of tonsillectomy (1954) History of total left hip replacement (2012) History of total right hip replacement (2011) Social History Smoking Status: Never smoker alcohol intake: never substance use type: does not use Lab / Micro Data 03/20/23 23:04 03/20/23 23:04 Labs: Laboratory Results - last 24 hr 03/20/23 23:00: Urine Color Yellow, Urine Clarity Cloudy, Urine pH 5.0, Ur Specific [place] 1.025, Urine Protein 100 H, Urine Glucose (UA) 50 H, Urine Ketones 5 H, Urine Occult Blood 50 H, Urine Nitrite Negative, Urine Bilirubin Negative, Urine Urobilinogen 4 H, Ur Leukocyte Esterase 100 H, Urine RBC 5-10 SEEN, Urine WBC 10-25 SEEN, Ur Squamous Epith Cells 0-5 SEEN, Amorphous Sediment 1+ URATE, Urine Bacteria 2+, Urine Mucus 0 SEEN 03/20/23 23:04: WBC 16.5 H, RBC 4.06 L, Hgb 13.1, Hct 39.5 L, MCV 97.3 H, MCH 32.3 H, MCHC 33.2, RDW Std Deviation 47.8 H, RDW Coeff of Gerardo 13.2, Plt Count 280, MPV 8.6, Immature Gran % (Auto) 1.500 H, Neut % (Auto) 89.7 H, Lymph % (Auto) 2.9 L, [place] % (Auto) 5.4, Eos % (Auto) 0.1, Baso % (Auto) 0.4, Absolute Neuts (auto) 14.8 H, Absolute Lymphs (auto) 0.48 L, Nucleated RBC % 0, Mac rocytosis 1+, Sodium 134 L, Potassium 3.4 L, Chloride 99, Carbon Dioxide 27.0, Anion Gap 8, BUN 23 H, Creatinine 1.44 H, Estim Creat Clear Calc 48.58, Est GFR (MDRD) Af Amer 62, Est GFR (MDRD) Non-Af 51 L, BUN/Creatinine Ratio 16.0, Glucose 228 H, Lactic Acid 2.3 H*, Calcium 9.4, Total Bilirubin 0.60, Direct Bilirubin 0.35 H, AST 25, ALT 45, Alkaline Phosphatase 134 H, Total Protein 6.8, Albumin 2.1 L, Globulin 4.7 H, Lipase 32 03/21/23 03:24: Lactic Acid 2.3 H* Radiology Impression Abdomen/Pelvis CT 03/20/23 22:48 IMPRESSION: 9.8 cm diameter septated ring-enhancing cystic mass within the central-left pelvis, with extensive surrounding fat stranding, consistent with abscess, possibly a postoperative abscess if the patient''s prostatectomy was recent. Diverticular abscess is a possibility but felt less likely in view of the relatively mild degree of sigmoid mural thickening where the mass abuts the mid sigmoid colon. Decompressed urinary bladder, displaced to the right by the pelvic mass. Minimal left hydronephrosis, consistent with slight compression of the distal left ureter by the left-sided pelvic mass. Normal appendix. No small bowel obstruction. Nonstandard communication protocol initiated. Electronically Signed: Nicholas Zaragoza MD at 0:51 EDT , ADDENDUM: 03/21/23 0105 IMPRESSION: 9.8 cm diameter septated ring-enhancing cystic mass within the central-left pelvis, with extensive surrounding fat stranding, consistent with abscess, possibly a postoperative abscess if the patient''s prostatectomy was recent. Diverticular abscess is a possibility but felt less likely in view of the relatively mild degree of sigmoid mural thickening where the mass abuts the mid sigmoid colon. Decompressed urinary bladder, displaced to the right by the pelvic mass. Minimal left hydronephrosis, consistent with slight compression of the distal left ureter by the left-sided pelvic mass. Normal appendix. No small bowel obstruction. Nonstandard communication protocol initiated. N.B. : The above Results were Read Back by Nicholas Zaragoza MD to Jenny Landrum RN, and understanding confirmed on 03/21/2023 00:58:35 (ET). Electronically Signed: Nicholas Zaragoza MD at 0:51 EDT , Chest X-Ray 03/20/23 22:48 IMPRESSION: No significant interval change. No radiographic evidence of acute cardiopulmonary disease. Electronically Signed: Nicholas Zaragoza MD at 0:20 EDT ,
--- NOTE | 2023-03-21 08:05 | CT_ITS ---
PROCEDURE: CT DIRECTED ABSCESS DRAINAGE, PERITONEAL DATE OF EXAMINATION: May 21, 2023. INDICATION: Male, 72 years old. Pelvic abscess. PHYSICIAN: Nicanor Lomeli M.D. CONSENT: Written informed consent was obtained having explained the risks, benefits and alternatives in detail with the patient who accepted the risks and agreed to proceed. Laboratory review and clinical assessment was performed. CONSCIOUS SEDATION PROTOCOL: The Drugs used were: 2 mg Versed, IV., and 50 mcg Fentanyl, IV. The sedation time was: 24 minutes. Conscious sedation was started at 1:17 PM and terminated at 1:41 PM. The conscious sedation protocol was independently monitored. RADIATION DOSAGE (If Supplied By Facility): CTDIvol = ( 21 ) mGy, DLP = ( 774.63 ) mGycm. Individualized dose optimization techniques were utilized. TECHNIQUE: CT sections were made through the abdomen and pelvis revealing an abscess in the pelvis. The skin surface was prepped and draped in a sterile fashion. Puncture of this collection was performed initially with a 8 [place] catheter and fluid was aspirated. Drainage catheter was then inserted into the collection and formed into position. Additional fluid was aspirated for a total of approximately 200 cc of cloudy red fluid. The catheter was sutured into position to allow for continued drainage. Followup CT sections reveals good position of the catheter. CT/CT Guidance Abscess Drg w/Cath IMPRESSION: 1. CT directed drainage of a fluid collection using CT image guidance and image documentation as described. 2. Conscious Sedation protocol utilized with independent monitoring Electronically Signed: Nicanor Lomeli MD at 14:26 EDT ,
[2023-03-21 09:44] LABS: International Normalized Ratio 1.2; Partial Thromboplast Time 32.2 Seconds (24.1-36.2)
--- NOTE | 2023-03-21 09:46 | PCM.RX.CS ---
Consult Antibiotic Management Pharmacy has been consulted to manage selected antiobiotic: Vancomycin Type of Intervention Type of Consult: New start Suspected Infection Suspected Infection: Sepsis Labs Labs: Sodium 134 mmol/L (136-145) L 03/20/23 23:04 Potassium 3.4 mmol/L (3.5-5.1) L 03/20/23 23:04 Chloride 99 mmol/L (98-107) 03/20/23 23:04 Carbon Dioxide 27.0 mmol/L (21.0-32.0) 03/20/23 23:04 Anion Gap 8 (5-15) 03/20/23 23:04 BUN 23 mg/dL (7-18) H 03/20/23 23:04 Creatinine 1.44 mg/dL (0.70-1.30) H 03/20/23 23:04 Est GFR (MDRD) Af Amer 62 mL/min (>60) 03/20/23 23:04 Est GFR (MDRD) Non-Af 51 mL/min (>60) L 03/20/23 23:04 BUN/Creatinine Ratio 16.0 RATIO (10-20) 03/20/23 23:04 Glucose 228 mg/dL (74-106) H 03/20/23 23:04 Dosing Weight Weight used for dosin.6 kg Estimated Creatinine Clearance Estimated Creatinine Clearance: 57 ml/min Pharmacy Plan for Drug Dosing Pharmacy Plan for Drug Dosing: NEW START IV VANCOMYCIN Consulting Physician: Dr. Hernandez Indication: Sepsis Goal Trough: 15-20 SrCr: 1.44 (03/20/23) CrCl: 57 ml/min (AdjBW 85.6kg) Comments: Received Vancomycin 1500mg x1 dose in ER @ 0129 03/21/23 Vancomycin Dose: 750mg Q12H to start at 1300 03/21/23 Pending Level: Vancomycin trough @ 1230 03/22/23 Pharmacy Service will continue to monitor and adjust dosing as required. Follow-Up Labs Follow-Up Labs: Trough: Vancomycin Date/Time Labs Ordered Labs to be done on [date and time ordered]: 03/22/23 12:30
--- NOTE | 2023-03-21 10:09 | CASEMGMT ---
Social Work As per pt when spoke w/admitting RN, has LW/POA but is not able to bring in the documents, his Naomi Suazo is his POA. RHONDA Allison
--- NOTE | 2023-03-21 11:20 | CASEMGMT ---
DEBORAH XIE Assessment: Face to Face with pt for initial transition planning/care coordination assessment. RN ANNE-MARIE introduced self and role at [facility], pt voices understanding and consents to assessment. Pt is A&O x4 and answers all questions appropriately at this time. Pt lying in bed in no distress. Care providers, pharmacy, and demographics verified/updated. Admitting Dx: sepsis PCP:Lan Specialists:David, uro; Mary, cardio Preferred Pharmacy: [facility] Retail Insurance: [employer] Prescription Benefit: yes LNOK: Naomi Suazo, ; Daryl Suazo, son Living Arrangements: Pt lives with and son John in a single story home with 2 steps to enter. Pt reports he is I in ADL's and denies concerns at home. Transportation: Pt drives self and denies concerns with transportation. DME:2 canes HHC/SNF: Denies hx of Pt states no concerns with going home at time of dc. Pt states his house is accessible as his son John has CP. Pt states no further concerns/needs. CM to follow. Advised pt to ask CM if any further question/concerns/needs arise, voices understanding. Pt Goal: Home Plan: Home
[2023-03-21] MEDS: Midazolam 2 MG/2 ML Syringe IV (13:17)
[2023-03-21] MEDS: fentaNYL 100 MCG/2 ML Ampul IV (13:19)
[2023-03-21] MEDS: Lidocaine 2% (20 ml mdv) 20 ML Vial INFILT (13:28)
--- NOTE | 2023-03-21 14:26 | FLU_PTH ---
PATIENT: VALENTE CHILDS LOC: MS3 U#:[id number] AGE/SX: 72/M ROOM: RI312 RE03/21/[address]: Dr. Nehemiah Umanzor DO : 1950 BED: 1 DIS: 03/25/2023 SPEC #: [id number] RECD: 03/22/23 10:10 STATUS: THEO REDanelle #: [id number] [place]: 03/21/23 14:[address]: Paramjit Hernandez DEPT: CYTOLOGY RECD BY: Zenobia Lakhani ENTERED: 03/22/23 10:11 SP TYPE: Fluid OTHR DR: Dr. Nehemiah Montenegro DO Tissues: CYST Procedures: Special Stain Group II Surgery Specimen Level IV Cytospin Fluid HEADER OPERATION: Not noted PRE-OP DIAGNOSIS: Cyst TISSUE SUBMITTED: Cyst fluid DIAGNOSIS CYTOLOGY Fine needle aspiration, cyst, not further specified (cytospin and cell block): Negative for malignant cells. Acute inflammation. AM:martin 03/23/2023 CYTOLOGY STUDY Slides are reviewed. CYTOLOGY GROSS Received is 100 ml of cloudy yellow fluid labeled with the patient's name and and designated per the requisition as cyst. Submitted for cytology preparation including cell block. / martin 03/22/2023 TC:2 CPT: 46257, 35100
[2023-03-21 14:34] LABS: Cytology, Body Fluid / CSF SEE PATHOLOGY REPORT
[2023-03-21] MEDS: Vancomycin HCl 750 MG in 0.9% Normal Saline (250mL Bag) 250 ML 250 MG IV (14:36)
[2023-03-21] MEDS: Acetaminophen 500 MG Tablet 1000 MG PO ×2 (14:42→21:18)
[2023-03-21 15:11] LABS: Body Fluid Mononuclear WBC # 5.526 10^3/uL; Body Fluid Mononuclear WBC % 72.5 %; Body Fluid Polynuclear WBC # 2.087 10^3/uL; Body Fluid Polynuclear WBC % 27.5 %; Red Cell Count/Body Fluid 0.004 10^6/ul
[2023-03-21 15:12] LABS: Vancomycin, Trough Level 5.3 ug/mL (5.0-15.0)
[2023-03-21 15:26] LABS: Appearance/Body Fluid TURBID; Auto B Fluid Analyzer BKGD Ct COUNTS W/IN LIMITS (W/IN LIMITS); Color/Body Fluid YELLOW; Source- Body Fluid OTHER
[2023-03-21] MEDS: 0.9% Normal Saline (250mL Bag) 250 ML 15 ML IV (15:43)
[2023-03-21 16:09] LABS: Body Fluid QC Type(s) BF1Q; Lymphocytes 42 %; Neutrophil (Segs) 58 %
[2023-03-21] MEDS: Atenolol 25 MG Tablet PO (21:18)
[2023-03-21] MEDS: Heparin Injection (Vial) 5,000 UNIT/ML VIAL 5000 UNIT SC (21:18)
[2023-03-22] VITALS (8 sets, daily range): BP systolic 101–144; BP diastolic 52–77; PULSE 74–100; RESP 16–18; TEMP 36.6–37.4; O2SAT 94–98
[2023-03-22] MEDS: 0.9% Normal Saline (1000mL) 1,000 ML 200 ML IV ×3 (00:13→11:15)
[2023-03-22] MEDS: Vancomycin HCl 750 MG in 0.9% Normal Saline (250mL Bag) 250 ML 250 MG IV (01:26)
[2023-03-22] MEDS: Piperacil/Tazobactam 3.375 GM in 0.9% Normal Saline (50mL MB+) 50 ML IV ×3 (05:33→22:11)
[2023-03-22] MEDS: Acetaminophen 500 MG Tablet 1000 MG PO ×3 (05:33→22:10)
[2023-03-22 07:02] LABS: Absolute Lymphocyte Count 0.51 X10^3/uL (0.83-4.51); Absolute Neutrophil Count 12.1 X10^3/uL (2.0-7.7); Basophil# 0.04 X10^3/uL; Basophil% 0.3 % (0-1); Eosinophil# 0.07 X10^3/uL; Eosinophils% 0.5 % (0-5); Hematocrit 32.6 % (40-54); Hemoglobin 10.5 g/dL (13.0-16.5); Lymphocyte # 0.51 X10^3/ul (0.83-4.51); Lymphocyte % 3.8 % (19-41); Mean Corp Hgb Conc 32.2 g/dL (32-36); Mean Corpuscular Hgb 32.1 pg (27.0-32.0); Mean Corpuscular Volume 99.7 fL (80-94); Mean Platelet Vol. 8.7 fl (6.2-12.0); Monocyte# 0.55 X10^3/uL; Monocyte% 4.1 % (0-10); NRBC Flagged by Analyzer 0 % (0-5); Neutrophil # 12.05 X10^3/uL (2.7-7.7); Neutrophil % 90.3 % (47-70); POSITIVE DIFFERENTIAL YES; POSITIVE MORPHOLOGY YES; Platelet Count 281 K/mm3 (150-450); RBC Distribution Width CV 14.1 % (11.6-14.6); RBC Distribution Width SD 51.8 fl (35.1-43.9); Red Blood Count 3.27 M/mm3 (4.6-6.2); White Blood Count 13.4 K/mm3 (4.4-11.0)
[2023-03-22 07:06] LABS: Differential Indicated SCAN CRITERIA MET
[2023-03-22 07:30] LABS: Anion Gap 5 (5-15); BUN 17 mg/dL (7-18); Calcium,Total 8.5 mg/dL (8.5-10.1); Chloride 107 mmol/L (98-107); Creatinine, Serum 0.85 mg/dL (0.70-1.30); EST Glomerular Filtration Rate 95 mL/min (>60); Est Glom Filt Rate - Afr Amer 114 mL/min (>60); Glucose 176 mg/dL (74-106); Phosphorus 2.3 mg/dL (2.5-4.9); Potassium 3.6 mmol/L (3.5-5.1); Sodium Level 138 mmol/L (136-145)
--- NOTE | 2023-03-22 07:37 | PCM.CONS.B ---
Consult Date of Consult: 03/22/23 Reason for Consult Status post CT-guided drainage of a seroma in the pelvis await to see if any cultures come back positive from this as possible is just a postoperative seroma but it was fairly large so I do think CT-guided drainage was necessary. We will leave the drainage tube in for now hopefully let scarred down. Jane catheter is for now but may remove the catheter tomorrow for voiding trial.
--- NOTE | 2023-03-22 07:38 | PCM.PN.HOSP ---
Subjective Subjective Patient underwent CT directed drainage of a fluid collection in the pelvis (suspected infected seroma) using CT image guidance by Dr. Diaz on 03/21/2023. Culture sent results pending Objective Data Objective Data Vital Signs: Vital Signs Temp Pulse Resp BP Pulse Ox O2 Del Method O2 Flow Rate 97.9 F 74 16 101/62 97 Room Air 2 03/22/23 02:00 03/22/23 02:00 03/22/23 02:00 03/22/23 02:00 03/22/23 02:00 03/22/23 02:00 03/21/23 13:48 Oxygen Flow Rate (L/min) [7] 2 Oxygen Flow Rate (L/min) [6] 2 Oxygen Flow Rate (L/min) [5] 2 Oxygen Flow Rate (L/min) [4] 2 Oxygen Flow Rate (L/min) 2 Oxygen Delivery Method [7] Nasal Cannula Oxygen Delivery Method [6] Nasal Cannula Oxygen Delivery Method [5] Nasal Cannula Oxygen Delivery Method [4] Nasal Cannula Oxygen Delivery Method [3] Room Air Oxygen Delivery Method [2] Room Air Oxygen Delivery Method [1 ( Room Air Initial Baseline)] Oxygen Delivery Method Room Air Weight: 105.188 kg Body Mass Index (BMI) 33.3 Intake & Output: Intake and Output for Last 24 Hours 03/20/23 03/21/23 03/22/23 23:59 23:59 23:59 Intake Total 4453 / 4453 2311.67 / 2311.67 Output Total 880 / 1230 610 / 610 Balance 3573 / 3223 1701.67 / 1701.67 Lab / Micro Data 03/22/23 06:30 03/22/23 06:30 Labs: Laboratory Results - last 24 hr 03/21/23 09:10: PT 15.0 H, INR 1.2, APTT 32.2 03/21/23 14:26: Fluid Source OTHER, Fluid Color YELLOW, Fluid Appearance TURBID, Fluid WBC 152.260, Fluid RBC 0.004, Fluid Tot Cell Count 155.480, Fld Polynuclear WBCs # 2.087, Fld Polynuclear WBCs % 27.5, Fluid Mononuclear WBCs 5.526, Fld Mononuclear WBCs % 72.5, Fluid Neutrophils 58, Fluid Lymphocytes 42, Fl Pathologist Comment May follow, Fluid Comment 2 SEE COMMENT 03/21/23 14:30: Vancomycin Trough 5.3 03/22/23 06:30: WBC 13.4 H, RBC 3.27 L, Hgb 10.5 L, Hct 32.6 L, MCV 99.7 H, MCH 32.1 H, MCHC 32.2, RDW Std Deviation 51.8 H, RDW Coeff of Gerardo 14.1, Plt Count 281, MPV 8.7, Immature Gran % (Auto) 1.000 H, Neut % (Auto) 90.3 H, Lymph % (Auto) 3.8 L, [place] % (Auto) 4.1, Eos % (Auto) 0.5, Baso % (Auto) 0.3, Absolute Neuts (auto) 12.1 H, Absolute Lymphs (auto) 0.51 L, Nucleated RBC % 0, Sodium 138, Potassium 3.6, Chloride 107, Carbon Dioxide 26.0, Anion Gap 5, BUN 17, Creatinine 0.85, Estim Creat Clear Calc 82.30, Est GFR (MDRD) Af Amer 114, Est GFR (MDRD) Non-Af 95, BUN/Creatinine Ratio 20.0, Glucose 176 H, Calcium 8.5, Phosphorus 2.3 L, Magnesium 2.0 Micro: Microbiology 03/20/23 23:35 Blood Culture (Wb) - Anticubital Right Blood Culture - Preliminary Radiography Diagnostic Testing: Radiology Impression Abscess Drainage CT 03/21/23 08:05 IMPRESSION: 1. CT directed drainage of a fluid collection using CT image guidance and image documentation as described. 2. Conscious Sedation protocol utilized with independent monitoring Electronically Signed: Nicanor Lomeli MD at 14:26 EDT , Physical Exam Narrative GENERAL: cooperative HEENT: Atraumatic; normocephalic EYES; Anicteric, Normal Conjunctiva NECK; supple, normal thyroid, RESPIRATORY: Diminished to auscultation CARDIOVASCULAR: Regular S1 S2, tachycardic GI: soft, normoactive bowel sounds, : No Renal angle tenderness; EXTREMITIES: No edema, no clubbing, MUSCULOSKELETAL: no muscle wasting NEURO: Awake; no lateralizing signs. SKIN: No Rash PSYCH; Flat affect Assessment & Plan Assessment/Plan (1) Infected seroma, postoperative: PLAN: Plan Patient is a 72-year-old gentleman presenting with fever and chills 1. Sepsis (as evidenced by the presence of an infection?infected seroma, tachycardia, leukocytosis BBC count 16 K, lactic acid level greater than 2.0, acute kidney injury). -Patient admitted to a monitored bed with treatment of the underlying condition 2. Suspected infected seroma at the site of lymph node dissection. -Imaging studies on admission did demonstrate 9.8 cm diameter septated ring-enhancing cystic mass within the central-left pelvis, with extensive surrounding fat stranding, consistent with abscess. This was discussed with Dr Hernandez who did perform patient's surgery he thought patient may have an infected seroma. Plan is to consult interventional radiology for IR drainage -03/22/[address] directed drainage of a fluid collection in the pelvis (suspected infected seroma) using CT image guidance by Dr. Diaz on 03/21/2023. Culture sent results pending 3. Coronary artery disease ? With history of CABG, patient is on guideline directed medical therapy 4. History of prostate CA ?Laparoscopic robotic assisted radical prostatectomy, bilateral lymph node dissection on 12/22/2022 5. Essential hypertension ? Patient blood pressure medications held given his presentation 6. Class I obesity with BMI of 33.1 ? Complicating care, weight loss advised 7. Dyslipidemia -Patient is on statin therapy, continued at home dose 8. Acute kidney injury ? Baseline creatinine from 01/23/2023 was 0.93, patient creatinine on admission was 1.44 started on IV hydration with subsequent monitoring of electrolytes ordered?03/22/2023 acute kidney injury resolved 9. Hypokalemia -Corrected per protocol 10. DVT prophylaxis ? SC heparin 11. Anemia - Secondary to chronic disorder monitoring H&H and transfuse if patient becomes symptomatic or hemoglobin falls below 7 Time spent in the patient's overall evaluation,decision-making process, review of diagnostic data, adjustment of management, discussion with other providers, nursing nursing and ancillary staff involved in patient's care documentation, 50 Minutes Charges/Coding Visit Charges Inpatient E&M: 82575 [facility]
[2023-03-22] MEDS: Atenolol 25 MG Tablet PO (08:37)
[2023-03-22] MEDS: Heparin Injection (Vial) 5,000 UNIT/ML VIAL 5000 UNIT SC ×2 (08:37→22:10)
[2023-03-22 13:13] LABS: Vancomycin, Trough Level 8.1 ug/mL (5.0-15.0)
[2023-03-22] MEDS: Ipratropium/Albuterol Sulfate 3 ML AMPUL.NEB INHALATION ×2 (13:55→19:20)
[2023-03-22] MEDS: Vancomycin HCl 1,500 MG in 0.9% Normal Saline (500mL Bag) 500 ML 250 MG IV (13:55)
[2023-03-22] MEDS: Furosemide 40 MG/4 ML Vial IV (13:55)
[2023-03-22] MEDS: 0.9% Saline Lock 10 ML Syringe IV ×2 (13:55→22:16)
--- NOTE | 2023-03-22 14:08 | PCM.RX.CS ---
Consult Antibiotic Management Pharmacy has been consulted to manage selected antiobiotic: Vancomycin Type of Intervention Type of Consult: Follow-up Prior Doses of Antibiotics Prior Doses of Antibiotics Received/Current Regimen: current dose is vanc 750mg IV q12h Labs Labs: Sodium 138 mmol/L (136-145) 03/22/23 06:30 Potassium 3.6 mmol/L (3.5-5.1) 03/22/23 06:30 Chloride 107 mmol/L (98-107) 03/22/23 06:30 Carbon Dioxide 26.0 mmol/L (21.0-32.0) 03/22/23 06:30 Anion Gap 5 (5-15) 03/22/23 06:30 BUN 17 mg/dL (7-18) 03/22/23 06:30 Creatinine 0.85 mg/dL (0.70-1.30) 03/22/23 06:30 Est GFR (MDRD) Af Amer 114 mL/min (>60) 03/22/23 06:30 Est GFR (MDRD) Non-Af 95 mL/min (>60) 03/22/23 06:30 BUN/Creatinine Ratio 20.0 RATIO (10-20) 03/22/23 06:30 Glucose 176 mg/dL (74-106) H 03/22/23 06:30 Vancomycin Trough 8.1 ug/mL (5.0-15.0) 03/22/23 12:35 Microbiology Microbiology: Microbiology 03/21/23 14:32 Fluid - Seroma Gram Stain - Final 03/20/23 23:35 Blood Culture (Wb) - Anticubital Right Blood Culture - Preliminary Dosing Weight Weight used for dosin.2 kg Estimated Creatinine Clearance Estimated Creatinine Clearance: 96.8ml/min Goal Trough Goal Trough: 15-20 mcg/mL Pharmacy Plan for Drug Dosing Pharmacy Plan for Drug Dosing: The vanc trough drawn at 12:35 today (approx 11 hours after the previous dose) was 8.1. This is well below goal range so will increase dose to 1500mg q12h to start now. Will check another trough before the 4th dose. Of note, the patient's SCr improved to 0.85 today from 1.44 on 03/20/23. The patient's CrCl of 96.8 ml/min was calculated using an adjusted body weight. Pharmacy Service will continue to monitor and adjust dosing as required. Follow-Up Labs Follow-Up Labs: Trough: Vancomycin Date/Time Labs Ordered Labs to be done on [date and time ordered]: 03/24/23 01:30
[2023-03-23] VITALS (9 sets, daily range): BP systolic 138–160; BP diastolic 65–76; PULSE 81–97; RESP 16–20; TEMP 36.5–37.1; O2SAT 93–96
[2023-03-23] MEDS: Ipratropium/Albuterol Sulfate 3 ML AMPUL.NEB INHALATION ×4 (01:09→19:44)
[2023-03-23] MEDS: Vancomycin HCl 1,500 MG in 0.9% Normal Saline (500mL Bag) 500 ML 250 MG IV ×2 (01:51→13:47)
[2023-03-23] MEDS: Rizatriptan Benzoate 10 MG Tablet PO (02:47)
[2023-03-23] MEDS: guaiFENesin 10 ML UDC (200MG/10ML) 20 ML PO ×3 (02:52→20:28)
[2023-03-23] MEDS: Acetaminophen 500 MG Tablet 1000 MG PO ×3 (05:03→20:16)
[2023-03-23] MEDS: 0.9% Saline Lock 10 ML Syringe IV ×3 (05:03→20:11)
[2023-03-23] MEDS: Piperacil/Tazobactam 3.375 GM in 0.9% Normal Saline (50mL MB+) 50 ML IV ×3 (05:03→20:15)
[2023-03-23 06:49] LABS: Absolute Lymphocyte Count 0.63 X10^3/uL (0.83-4.51); Basophil# 0.04 X10^3/uL; Basophil% 0.3 % (0-1); Eosinophils% 0.8 % (0-5); Hematocrit 34.2 % (40-54); Hemoglobin 11.1 g/dL (13.0-16.5); Lymphocyte # 0.63 X10^3/ul (0.83-4.51); Lymphocyte % 5.1 % (19-41); Mean Corp Hgb Conc 32.5 g/dL (32-36); Mean Corpuscular Hgb 31.8 pg (27.0-32.0); Mean Platelet Vol. 8.7 fl (6.2-12.0); NRBC Flagged by Analyzer 0 % (0-5); Neutrophil # 11.04 X10^3/uL (2.7-7.7); Neutrophil % 88.8 % (47-70); Platelet Count 317 K/mm3 (150-450); RBC Distribution Width CV 13.9 % (11.6-14.6); RBC Distribution Width SD 50.3 fl (35.1-43.9); Red Blood Count 3.49 M/mm3 (4.6-6.2); White Blood Count 12.4 K/mm3 (4.4-11.0)
[2023-03-23 07:26] LABS: Anion Gap 5 (5-15); BUN 16 mg/dL (7-18); BUN/Creat Ratio 19.6 RATIO (10-20); Calcium,Total 8.4 mg/dL (8.5-10.1); Chloride 105 mmol/L (98-107); Creatinine, Serum 0.82 mg/dL (0.70-1.30); EST Glomerular Filtration Rate 99 mL/min (>60); Est Glom Filt Rate - Afr Amer 119 mL/min (>60); Estimated Creatinine Clearance 85.32 ml/min; Glucose 178 mg/dL (74-106); Sodium Level 137 mmol/L (136-145)
[2023-03-23] MEDS: Heparin Injection (Vial) 5,000 UNIT/ML VIAL 5000 UNIT SC ×2 (09:12→20:15)
[2023-03-23] MEDS: Atenolol 25 MG Tablet PO (09:13)
--- NOTE | 2023-03-23 10:01 | PCM.PN.GU ---
Subjective Subjective 72-year-old male status post radical prostatectomy few months ago for prostate cancer presented to the hospital with fevers chills signs of infection not feeling well looks like he has an infected seroma, Gram stain came back with +3 gram-negative rods cultures are pending he is on broad-spectrum antibiotics. Currently has a drain in place to bulb suction and is draining a minor amount of fluid should stop draining eventually we will continue with this I do have his bladder decompressed as well. The urine is clear from the Jane catheter he had been having more trouble with bladder control I think the seroma was pushing on his bladder solely by decompressing this seroma it should help with the bladder control as well. I think tomorrow morning have the nurses remove the Jane catheter and see if having the bladder distended also help pushing the seroma get some more more the fluid out. Also talk to the patient as possible may have to take him back to surgery for laparoscopic to open up the seroma and do a washout but ideal situation would be to see if we can get this healed with a percutaneous drainage and antibiotics we will see what the cultures show continue to follow. Objective Data Objective Data Vital Signs: Vital Signs Temp Pulse Resp BP Pulse Ox O2 Del Method O2 Flow Rate 97.7 F L 97 18 140/67 H 95 Room Air 2 03/23/23 07:30 03/23/23 07:30 03/23/23 07:30 03/23/23 07:30 03/23/23 07:30 03/23/23 08:45 03/21/23 13:48 Oxygen Flow Rate (L/min) [7] 2 Oxygen Flow Rate (L/min) [6] 2 Oxygen Flow Rate (L/min) [5] 2 Oxygen Flow Rate (L/min) [4] 2 Oxygen Flow Rate (L/min) 2 Oxygen Delivery Method [7] Nasal Cannula Oxygen Delivery Method [6] Nasal Cannula Oxygen Delivery Method [5] Nasal Cannula Oxygen Delivery Method [4] Nasal Cannula Oxygen Delivery Method [3] Room Air Oxygen Delivery Method [2] Room Air Oxygen Delivery Method [1 ( Room Air Initial Baseline)] Oxygen Delivery Method Room Air Weight: 105.188 kg Body Mass Index (BMI) 33.3 Intake & Output: Intake and Output for Last 24 Hours 03/21/23 03/22/23 03/23/23 23:59 23:59 23:59 Intake Total 4453 / 4453 4525.75 / 4525.75 630 / 630 Output Total 880 / 1230 3810 / 3810 550 / 550 Balance 3573 / 3223 715.75 / 715.75 80 / 80 Lab / Micro Data 03/23/23 06:10 03/23/23 06:10 Labs: Laboratory Results - last 24 hr 03/22/23 12:35: Vancomycin Trough 8.1 03/23/23 06:10: WBC 12.4 H, RBC 3.49 L, Hgb 11.1 L, Hct 34.2 L, MCV 98.0 H, MCH 31.8, MCHC 32.5, RDW Std Deviation 50.3 H, RDW Coeff of Gerardo 13.9, Plt Count 317, MPV 8.7, Immature Gran % (Auto) 1.000 H, Neut % (Auto) 88.8 H, Lymph % (Auto) 5.1 L, [place] % (Auto) 4.0, Eos % (Auto) 0.8, Baso % (Auto) 0.3, Absolute Neuts (auto) 11.0 H, Absolute Lymphs (auto) 0.63 L, Nucleated RBC % 0, Sodium 137, Potassium 3.0 L, Chloride 105, Carbon Dioxide 27.0, Anion Gap 5, BUN 16, Creatinine 0.82, Estim Creat Clear Calc 85.32, Est GFR (MDRD) Af Amer 119, Est GFR (MDRD) Non-Af 99, BUN/Creatinine Ratio 19.6, Glucose 178 H, Calcium 8.4 L Micro: Microbiology 03/20/23 23:38 Urine, Clean Catch Urine Culture - Final Culture exhibits no growth. 03/20/23 23:35 Blood Culture (Wb) - Anticubital Right Blood Culture - Preliminary 03/21/23 14:32 Fluid - Seroma Gram Stain - Final
[2023-03-23 12:44] LABS: Pathologist Comment/Body Fluid Reviewed
--- NOTE | 2023-03-23 17:24 | PCM.PN.HOSP ---
Subjective Subjective Patient was seen and examined today, I had infectious diseases see him regarding his infected seroma. Objective Data Objective Data Vital Signs: Vital Signs Temp Pulse Resp BP Pulse Ox O2 Del Method O2 Flow Rate 98.8 F 97 20 H 160/70 H 96 Room Air 2 03/23/23 14:01 03/23/23 14:01 03/23/23 14:01 03/23/23 14:01 03/23/23 14:01 03/23/23 14:01 03/21/23 13:48 Oxygen Flow Rate (L/min) [7] 2 Oxygen Flow Rate (L/min) [6] 2 Oxygen Flow Rate (L/min) [5] 2 Oxygen Flow Rate (L/min) [4] 2 Oxygen Flow Rate (L/min) 2 Oxygen Delivery Method [7] Nasal Cannula Oxygen Delivery Method [6] Nasal Cannula Oxygen Delivery Method [5] Nasal Cannula Oxygen Delivery Method [4] Nasal Cannula Oxygen Delivery Method [3] Room Air Oxygen Delivery Method [2] Room Air Oxygen Delivery Method [1 ( Room Air Initial Baseline)] Oxygen Delivery Method Room Air Weight: 105.188 kg Body Mass Index (BMI) 33.3 Intake & Output: Intake and Output for Last 24 Hours 03/21/23 03/22/23 03/23/23 23:59 23:59 23:59 Intake Total 4453 / 4453 4525.75 / 4525.75 1351.25 / 1351.25 Output Total 880 / 1230 3810 / 3810 1040 / 1040 Balance 3573 / 3223 715.75 / 715.75 311.25 / 311.25 Lab / Micro Data 03/23/23 06:10 03/23/23 06:10 Labs: Laboratory Results - last 24 hr 03/21/23 14:26: Fl Pathologist Comment Reviewed 03/23/23 06:10: WBC 12.4 H, RBC 3.49 L, Hgb 11.1 L, Hct 34.2 L, MCV 98.0 H, MCH 31.8, MCHC 32.5, RDW Std Deviation 50.3 H, RDW Coeff of Gerardo 13.9, Plt Count 317, MPV 8.7, Immature Gran % (Auto) 1.000 H, Neut % (Auto) 88.8 H, Lymph % (Auto) 5.1 L, [place] % (Auto) 4.0, Eos % (Auto) 0.8, Baso % (Auto) 0.3, Absolute Neuts (auto) 11.0 H, Absolute Lymphs (auto) 0.63 L, Nucleated RBC % 0, Sodium 137, Potassium 3.0 L, Chloride 105, Carbon Dioxide 27.0, Anion Gap 5, BUN 16, Creatinine 0.82, Estim Creat Clear Calc 85.32, Est GFR (MDRD) Af Amer 119, Est GFR (MDRD) Non-Af 99, BUN/Creatinine Ratio 19.6, Glucose 178 H, Calcium 8.4 L Micro: Microbiology 03/20/23 23:38 Urine, Clean Catch Urine Culture - Final Culture exhibits no growth. 03/20/23 23:35 Blood Culture (Wb) - Anticubital Right Blood Culture - Preliminary 03/21/23 14:32 Fluid - Seroma Gram Stain - Final Physical Exam Const alert, oriented x3, no apparent distress, average body habitus and healthy appearing General Appearance: cooperative, well kempt and well developed Orientation / Consciousness: awake, oriented to person, oriented to place and oriented to time HEENT normocephalic, head/scalp atraumatic and moist oral mucous membranes Eyes PERRL, EOMs intact bilaterally and conjunctivae normal Neck supple, no JVD, thyroid normal and no carotid bruits General: trachea midline Resp normal respiratory effort, no retractions, no use of accessory muscles and clear to auscultation bilaterally Auscultation: Negative for rales, rhonchi or wheezes Cardio regular rate, regular rhythm, S1 normal heart sound, S2 normal heart sound, no murmurs, no rub and no gallops GI normal to inspection, nondistended, normoactive bowel sounds, soft to palpation, non-tender and non-distended Extremity no clubbing, cyanosis or edema Skin no rashes or lesions noted General Skin Exam: no breakdown Neuro oriented x3, CN's II-XII intact bilaterally, moves all extremities, no focal motor deficits and no sensory deficits noted Sensorium / Orientation: awake, alert, oriented to person, oriented to place and oriented to time Speech: speech normal Psych affect normal Assessment & Plan Assessment/Plan (1) Infected seroma, postoperative: PLAN: Plan 1. Sepsis secondary to infected seroma-continue antibiotic coverage, infectious diseases is participating in his care, await final culture results #2 infected seroma in the left inguinal area-await culture results, patient has a drain in place at this time #3 essential hypertension-patient will remain on his present blood pressure medications, blood pressure will be monitored #4 hypokalemia-patient was given potassium today, labs will be rechecked #5 hyperlipidemia-patient remains on a statin\ Total clinical time spent by myself addressing the patient's medical issues, reviewing all of his data, and collaborating with patient's care team: 35 minutes Charges/Coding Visit Charges Inpatient E&M: 57747 Subs Hosp L2
--- NOTE | 2023-03-23 19:44 | PCM.CONS.GEN ---
Assessment & Plan Assessment/Plan (1) Pelvic abscess: PLAN: Had radical prostatectomy in 12/2022. Now with large pelvic abscess, drain placed, gram stain showing heavy purulence and GNR. On vanc/zosyn. Will follow, thank you (2) History of prostate cancer: HPI Consult Data Date of Consult: 03/23/23 HPI Narrative Reason for Consultation: abscess HPI Narrative: VALENTE CHILDS, is a 72 M who presented with one week fever, not feeling well. Has h/o prostate CA status post laparoscopic robotic assisted radical prostatectomy and bilateral lymph node dissection on 12/22/2022. CT showed large pelvic abscess. Seen by urology, on vanc/zosyn, CT guided drain placed, feeling better. No abd pain. Full ROS performed and neg except as noted above. [facility] Medical History Arthritis Atherosclerotic heart disease of [place] coronary artery without angina pectoris BPH (benign prostatic hyperplasia) Cancer Cardiology follow-up encounter COVID-19 (04/2020) Diabetes Essential (primary) hypertension High cholesterol History of echocardiogram History of Holter monitoring History of migraine headaches History of pain when walking History of stress test Hyperlipidemia Idioventricular rhythm IFG (impaired fasting glucose) Injury of head and neck Migraines Non-smoker Non-sustained ventricular tachycardia Nonrheumatic mitral (valve) insufficiency Nonrheumatic mitral (valve) prolapse Obesity Osteoarthritis Postoperative atrial fibrillation (10/20/20) Secondary pulmonary arterial hypertension Thrombus of right radial artery (10/15/20) Wears glasses [place] Home Medications aspirin 81 mg tablet,delayed release 81 mg PO DAILY@0800 heart 09/12/20 [History Last Taken 03/20/23 08:00] sumatriptan succinate 50 mg tablet 50 mg PO ONCE PRN migraine headache 11/11/20 [History Last Taken 03/20/23] pravastatin 40 mg tablet 40 mg PO QHS #90 tabs 10/14/22 [Rx Last Taken 03/19/23 20:00] ascorbic acid (vitamin C) 500 mg tablet (Vitamin C) 1 g PO DAILY supplement 12/08/22 [History Last Taken 03/20/23 08:00] cinnamon bark 500 mg capsule (Cinnamon) 1,000 mg PO DAILY supplent 12/08/22 [History Last Taken 03/20/23 08:00] omeg3-epa 150 mg-dha 100 mg-fish oil-flaxseed oil 333 mg-E 61 unit cap 1 cap PO DAILY supplement 12/08/22 [History Last Taken 03/20/23] ciprofloxacin HCl 500 mg tablet (Cipro) 500 mg PO BID #20 tabs 12/22/22 [Rx Last Taken Unknown] docusate sodium 100 mg capsule (Colace) 100 mg PO BID #20 caps 12/22/22 [Rx Last Taken Unknown] oxycodone 5 mg tablet 5 mg PO Q6H PRN pain 7 days #14 tabs 12/22/22 [Rx Last Taken Unknown] atenolol 25 mg tablet 25 mg PO DAILY #90 tabs 02/17/23 [Rx Last Taken 03/20/23 21:00] ciprofloxacin HCl 500 mg tablet (Cipro) 500 mg PO Q12H 7 days #14 tabs 03/16/23 [Rx Last Taken 03/19/23 20:00] Allergy/AdvReac Type Severity Reaction Status Date / Time codeine Allergy Intermediate Nausea Verified 03/20/23 22:06 fentanyl Allergy Intermediate hypotension Verified 03/20/23 22:06 Family History Mother Parkinson's disease Migraines Father Diabetes AAA (abdominal aortic aneurysm) Brother Diabetes Hypertension CVA (cerebral vascular accident) age 77 cardiac arrest Grandmother Heart disease Grandfather Cancer Prostate Son Migraines Son Migraines Daughter Migraines Surgical History H/O coronary artery bypass surgery (10/13/20) History of arthroscopy of left knee (2012) History of cardiac catheterization History of left heart catheterization (09/15/20) History of mitral valve repair (10/13/20) History of tonsillectomy (1954) History of total left hip replacement (2012) History of total right hip replacement (2011) Social History Smoking Status: Never smoker alcohol intake: never substance use type: does not use Lab / Micro Data Attestation: I reviewed the patient's lab results. 03/23/23 06:10 03/23/23 06:10 Labs: Laboratory Results - last 24 hr 10/16/23 14:26: Fl Pathologist Comment Reviewed 03/23/23 06:10: WBC 12.4 H, RBC 3.49 L, Hgb 11.1 L, Hct 34.2 L, MCV 98.0 H, MCH 31.8, MCHC 32.5, RDW Std Deviation 50.3 H, RDW Coeff of Gerardo 13.9, Plt Count 317, MPV 8.7, Immature Gran % (Auto) 1.000 H, Neut % (Auto) 88.8 H, Lymph % (Auto) 5.1 L, [place] % (Auto) 4.0, Eos % (Auto) 0.8, Baso % (Auto) 0.3, Absolute Neuts (auto) 11.0 H, Absolute Lymphs (auto) 0.63 L, Nucleated RBC % 0, Sodium 137, Potassium 3.0 L, Chloride 105, Carbon Dioxide 27.0, Anion Gap 5, BUN 16, Creatinine 0.82, Estim Creat Clear Calc 85.32, Est GFR (MDRD) Af Amer 119, Est GFR (MDRD) Non-Af 99, BUN/Creatinine Ratio 19.6, Glucose 178 H, Calcium 8.4 L Micro: Microbiology 03/20/23 23:38 Urine, Clean Catch Urine Culture - Final Culture exhibits no growth. 03/20/23 23:35 Blood Culture (Wb) - Anticubital Right Blood Culture - Preliminary
[2023-03-23] MEDS: 0.9% Normal Saline (250mL Bag) 250 ML 15 ML IV (20:11)
[2023-03-24] VITALS (9 sets, daily range): BP systolic 138–163; BP diastolic 63–87; PULSE 65–102; RESP 16–20; TEMP 36.4–37.7; O2SAT 93–97
[2023-03-24] MEDS: Ipratropium/Albuterol Sulfate 3 ML AMPUL.NEB INHALATION ×2 (01:32→06:45)
[2023-03-24 01:48] LABS: Vancomycin, Trough Level 17.8 ug/mL (5.0-15.0)
--- NOTE | 2023-03-24 01:53 | PCM.RX.CS ---
Consult Antibiotic Management Pharmacy has been consulted to manage selected antiobiotic: Vancomycin Type of Intervention Type of Consult: Follow-up Labs Labs: Sodium 137 mmol/L (136-145) 03/23/23 06:10 Potassium 3.0 mmol/L (3.5-5.1) L 03/23/23 06:10 Chloride 105 mmol/L (98-107) 03/23/23 06:10 Carbon Dioxide 27.0 mmol/L (21.0-32.0) 03/23/23 06:10 Anion Gap 5 (5-15) 03/23/23 06:10 BUN 16 mg/dL (7-18) 03/23/23 06:10 Creatinine 0.82 mg/dL (0.70-1.30) 03/23/23 06:10 Est GFR (MDRD) Af Amer 119 mL/min (>60) 03/23/23 06:10 Est GFR (MDRD) Non-Af 99 mL/min (>60) 03/23/23 06:10 BUN/Creatinine Ratio 19.6 RATIO (10-20) 03/23/23 06:10 Glucose 178 mg/dL (74-106) H 03/23/23 06:10 Vancomycin Trough 17.8 ug/mL (5.0-15.0) H 03/24/23 01:15 Microbiology Microbiology: Microbiology 03/20/23 23:38 Urine, Clean Catch Urine Culture - Final Culture exhibits no growth. 03/20/23 23:35 Blood Culture (Wb) - Anticubital Right Blood Culture - Preliminary 03/21/23 14:32 Fluid - Seroma Gram Stain - Final Pharmacy Plan for Drug Dosing Pharmacy Plan for Drug Dosing: Pharmacy Service will continue to monitor and adjust dosing as required. TROUGH 17.8 @ 11.5HRS. NO CHANGES, FOLLOW UP TROUGH IN 2 DAYS Follow-Up Labs Follow-Up Labs: Trough: Vancomycin Date/Time Labs Ordered Labs to be done on [date and time ordered]: 03/26 @ 0130
[2023-03-24] MEDS: Vancomycin HCl 1,500 MG in 0.9% Normal Saline (500mL Bag) 500 ML 250 MG IV ×2 (02:40→15:18)
[2023-03-24] MEDS: Rizatriptan Benzoate 10 MG Tablet PO (03:12)
[2023-03-24] MEDS: Acetaminophen 500 MG Tablet 1000 MG PO ×3 (05:55→23:58)
[2023-03-24] MEDS: Atenolol 25 MG Tablet PO (05:56)
[2023-03-24] MEDS: Piperacil/Tazobactam 3.375 GM in 0.9% Normal Saline (50mL MB+) 50 ML IV ×3 (05:56→23:58)
[2023-03-24 07:14] LABS: Absolute Lymphocyte Count 0.55 X10^3/uL (0.83-4.51); Absolute Neutrophil Count 8.9 X10^3/uL (2.0-7.7); Basophil# 0.04 X10^3/uL; Basophil% 0.4 % (0-1); Eosinophil# 0.09 X10^3/uL; Eosinophils% 0.9 % (0-5); Hematocrit 34.9 % (40-54); Hemoglobin 11.4 g/dL (13.0-16.5); Lymphocyte # 0.55 X10^3/ul (0.83-4.51); Lymphocyte % 5.4 % (19-41); Mean Corp Hgb Conc 32.7 g/dL (32-36); Mean Corpuscular Hgb 31.7 pg (27.0-32.0); Mean Corpuscular Volume 96.9 fL (80-94); Mean Platelet Vol. 8.6 fl (6.2-12.0); Monocyte# 0.51 X10^3/uL; NRBC Flagged by Analyzer 0 % (0-5); Neutrophil # 8.91 X10^3/uL (2.7-7.7); Neutrophil % 87.1 % (47-70); POSITIVE DIFFERENTIAL YES; Platelet Count 350 K/mm3 (150-450); RBC Distribution Width CV 13.7 % (11.6-14.6); RBC Distribution Width SD 49.3 fl (35.1-43.9); White Blood Count 10.2 K/mm3 (4.4-11.0)
[2023-03-24 07:41] LABS: Anion Gap 8 (5-15); BUN 14 mg/dL (7-18); BUN/Creat Ratio 18.7 RATIO (10-20); Calcium,Total 8.4 mg/dL (8.5-10.1); Chloride 104 mmol/L (98-107); Creatinine, Serum 0.75 mg/dL (0.70-1.30); EST Glomerular Filtration Rate 109 mL/min (>60); Est Glom Filt Rate - Afr Amer 132 mL/min (>60); Estimated Creatinine Clearance 69.96 ml/min; Glucose 170 mg/dL (74-106); Potassium 3.1 mmol/L (3.5-5.1); Sodium Level 139 mmol/L (136-145)
[2023-03-24 07:45] LABS: Differential Indicated SCAN CRITERIA MET
[2023-03-24] MEDS: Heparin Injection (Vial) 5,000 UNIT/ML VIAL 5000 UNIT SC ×2 (11:27→23:58)
--- NOTE | 2023-03-24 15:39 | PCM.PN.ID ---
Physical Exam Narrative Feeling ok, no pain, no fever, no n/v/d. Const alert and no apparent distress General Appearance: cooperative Resp normal air movement and clear to auscultation bilaterally Cardio regular rate and regular rhythm GI soft to palpation, non-tender and non-distended Extremity General Extremity: Negative for edema Skin no rashes or lesions noted ID ID: Route of nutrition/ use of supplements: [] Nutritional Intake: [] IV Site: [] Jane Catheter: [] Assessment & Plan Assessment/Plan (1) Pelvic abscess: PLAN: Had radical prostatectomy in 12/2022. Now with large pelvic abscess, drain placed, gram stain showing heavy purulence and GNR. On vanc/zosyn. Lab unable to do cx due to lack of fluid. Will order cx of drain fluid. Will follow (2) History of prostate cancer:
--- NOTE | 2023-03-24 17:22 | PCM.PN.GU ---
Subjective Subjective Wrote order for the patient's catheter to be removed removed we will leave the MARGY drain in place he will plan to go home with IV antibiotics he can follow-up in my office to remove the MARGY drain after drain for another week he can follow-up in 1 week in my office Objective Data Objective Data Vital Signs: Vital Signs Temp Pulse Resp BP Pulse Ox O2 Del Method O2 Flow Rate 98.9 F 93 18 138/68 H 94 Room Air 2 03/24/23 16:20 03/24/23 16:20 03/24/23 16:20 03/24/23 16:20 03/24/23 16:20 03/24/23 16:20 03/21/23 13:48 Oxygen Flow Rate (L/min) [7] 2 Oxygen Flow Rate (L/min) [6] 2 Oxygen Flow Rate (L/min) [5] 2 Oxygen Flow Rate (L/min) [4] 2 Oxygen Flow Rate (L/min) 2 Oxygen Delivery Method [7] Nasal Cannula Oxygen Delivery Method [6] Nasal Cannula Oxygen Delivery Method [5] Nasal Cannula Oxygen Delivery Method [4] Nasal Cannula Oxygen Delivery Method [3] Room Air Oxygen Delivery Method [2] Room Air Oxygen Delivery Method [1 ( Room Air Initial Baseline)] Oxygen Delivery Method Room Air Weight: 105.188 kg Body Mass Index (BMI) 33.3 Intake & Output: Intake and Output for Last 24 Hours 03/22/23 03/23/23 03/24/23 23:59 23:59 23:59 Intake Total 4525.75 / 4525.75 1401.25 / 1401.25 870 / 870 Output Total 3810 / 3810 1540 / 1540 1432 / 1432 Balance 715.75 / 715.75 -138.75 / -138.75 -562 / -562 Lab / Micro Data 03/24/23 06:47 03/24/23 06:47 Labs: Laboratory Results - last 24 hr 03/21/23 14:26: Miscellaneous Cytology SEE PATHOLOGY REPORT 03/24/23 01:15: Vancomycin Trough 17.8 H 03/24/23 06:47: WBC 10.2, RBC 3.60 L, Hgb 11.4 L, Hct 34.9 L, MCV 96.9 H, MCH 31.7, MCHC 32.7, RDW Std Deviation 49.3 H, RDW Coeff of Gerardo 13.7, Plt Count 350, MPV 8.6, Immature Gran % (Auto) 1.200 H, Neut % (Auto) 87.1 H, Lymph % (Auto) 5.4 L, Placer % (Auto) 5.0, Eos % (Auto) 0.9, Baso % (Auto) 0.4, Absolute Neuts (auto) 8.9 H, Absolute Lymphs (auto) 0.55 L, Nucleated RBC % 0, Sodium 139, Potassium 3.1 L, Chloride 104, Carbon Dioxide 27.0, Anion Gap 8, BUN 14, Creatinine 0.75, Estim Creat Clear Calc 69.96, Est GFR (MDRD) Af Amer 132, Est GFR (MDRD) Non-Af 109, BUN/Creatinine Ratio 18.7, Glucose 170 H, Calcium 8.4 L Micro: Microbiology 03/21/23 14:32 Fluid - Seroma Gram Stain - Final 03/21/23 14:32 Fluid - Seroma Body Fluid Culture - Final Culture exhibits no growth. 03/20/23 23:35 Blood Culture (Wb) - Anticubital Right Blood Culture - Final Bacteroides fragilis 03/20/23 23:38 Urine, Clean Catch Urine Culture - Final Culture exhibits no growth.
--- NOTE | 2023-03-24 18:33 | PN.HOSP_ITS ---
Reason for Visit Reason for Visit: Diagnoses Personal history of malignant neoplasm of prostate (03/21/23) Subjective Subjective Patient was seen and examined today, I talked briefly with infectious diseases about his care, infectious diseases stated that the labs stated that there was not enough fluid to culture from the patient's seroma drainage, I do not really understand this because it was documented that 200 cc of fluid was removed durin g the CT-guided drainage. Infectious diseases does not feel the patient has a blood infection with bacillus fragilis, they feel that the growth of this organism in the blood culture was a contaminant. Objective Data Objective Data Vital Signs: Vital Signs Temp Pulse Resp BP Pulse Ox O2 Del Method O2 Flow Rate 98.9 F 93 18 138/68 H 94 Room Air 2 03/24/23 16:20 03/24/23 16:20 03/24/23 16:20 03/24/23 16:20 03/24/23 16:20 03/24/23 16:20 03/21/23 13:48 Oxygen Flow Rate (L/min) [7] 2 Oxygen Flow Rate (L/min) [6] 2 Oxygen Flow Rate (L/min) [5] 2 Oxygen Flow Rate (L/min) [4] 2 Oxygen Flow Rate (L/min) 2 Oxygen Delivery Method [7] Nasal Cannula Oxygen Delivery Method [6] Nasal Cannula Oxygen Delivery Method [5] Nasal Cannula Oxygen Delivery Method [4] Nasal Cannula Oxygen Delivery Method [3] Room Air Oxygen Delivery Method [2] Room Air Oxygen Delivery Method [1 ( Room Air Initial Baseline)] Oxygen Delivery Method Room Air Weight: 105.188 kg Body Mass Index (BMI) 33.3 Intake & Output: Intake and Output for Last 24 Hours 03/22/23 03/23/23 03/24/23 23:59 23:59 23:59 Intake Total 4525.75 / 4525.75 1401.25 / 1401.25 1400 / 1400 Output Total 3810 / 3810 1540 / 1540 1432 / 1432 Balance 715.75 / 715.75 -138.75 / -138.75 -32 / -32 Lab / Micro Data 03/24/23 06:47 03/24/23 06:47 Labs: Laboratory Results - last 24 hr 03/21/23 14:26: Miscellaneous Cytology SEE PATHOLOGY REPORT 03/24/23 01:15: Vancomycin Trough 17.8 H 03/24/23 06:47: WBC 10.2, RBC 3.60 L, Hgb 11.4 L, Hct 34.9 L, MCV 96.9 H, MCH 31.7, MCHC 32.7, RDW Std Deviation 49.3 H, RDW Coeff of Gerardo 13.7, Plt Count 350, MPV 8.6, Immature Gran % (Auto) 1.200 H, Neut % (Auto) 87.1 H, Lymph % (Auto) 5.4 L, Mckean % (Auto) 5.0, Eos % (Auto) 0.9, Baso % (Auto) 0.4, Absolute Neuts (auto) 8.9 H, Absolute Lymphs (auto) 0.55 L, Nucleated RBC % 0, Sodium 139, Potassium 3.1 L, Chloride 104, Carbon Dioxide 27.0, Anion Gap 8, BUN 14, Creatinine 0.75, Estim Creat Clear Calc 69.96, Est GFR (MDRD) Af Amer 132, Est GFR (MDRD) Non-Af 109, BUN/Creatinine Ratio 18.7, Glucose 170 H, Calcium 8.4 L Micro: Microbiology 03/21/23 14:32 Fluid - Seroma Gram Stain - Final 03/21/23 14:32 Fluid - Seroma Body Fluid Culture - Final Culture exhibits no growth. 03/20/23 23:35 Blood Culture (Wb) - Anticubital Right Blood Culture - Final Bacteroides fragilis 03/20/23 23:38 Urine, Clean Catch Urine Culture - Final Culture exhibits no growth. Physical Exam Narrative alert, oriented x3, no apparent distress, average body habitus and healthy tammy earing General Appearance: cooperative, well kempt and well developed Orientation / Consciousness: awake, oriented to person, oriented to place and oriented to time HEENT normocephalic, head/scalp atraumatic and moist oral mucous membranes Eyes PERRL, EOMs intact bilaterally and conjunctivae normal Neck supple, no JVD, thyroid normal and no carotid bruits General: trachea midline Resp normal respiratory effort, no retractions, no use of accessory muscles and clear to auscultation bilaterally Auscultation: Negative for rales, rhonchi or wheezes Cardio regular rate, regular rhythm, S1 normal heart sound, S2 normal heart sound, no murmurs, no rub and no gallops GI normal to inspection, nondistended, normoactive bowel sounds, soft to palpation, non-tender and non-distended, there is a drainage catheter located in the abdominal wall of the mid lower abdomen below the umbilicus Extremity no clubbing, cyanosis or edema Skin no rashes or lesions noted General Skin Exam: no breakdown Neuro oriented x3, CN's II-XII intact bilaterally, moves all extremities, no focal mo tor deficits and no sensory deficits noted Sensorium / Orientation: awake, alert, oriented to person, oriented to place and oriented to time Speech: speech normal Psych affect normal Assessment & Plan Assessment/Plan (1) Infected seroma, postoperative: PLAN: Plan 1. Sepsis secondary to infected seroma-continue antibiotic coverage, infectious diseases is participating in his care, await final culture results, the patient's MARGY drainage was cultured again on orders from ID. #2 infected seroma in the left inguinal area-await culture results, patient has a drain in place at this time #3 essential hypertension-patient will remain on his present blood pressure medications, blood pressure will be monitored #4 hypokalemia-patient was given potassium today, labs will be rechecked #5 hyperlipidemia-patient remains on a statin Total clinical time spent by myself addressing the patient's medical issues, reviewing all of his data, and collaborating with patient's care team: 35 minutes Charges/Coding Visit Charges Inpatient E&M: 76965 Subs Hosp L2
[2023-03-24] MEDS: Potassium Chloride Oral Tablet 20 MEQ 60 MEQ PO (19:22)
[2023-03-25] MEDS: 0.9% Saline Lock 10 ML Syringe IV (00:08)
[2023-03-25] MEDS: 0.9% Normal Saline (250mL Bag) 250 ML 15 ML IV (00:11)
[2023-03-25] MEDS: Vancomycin HCl 1,500 MG in 0.9% Normal Saline (500mL Bag) 500 ML 250 MG IV (02:26)
[2023-03-25 05:43] VITALS: BP 145/82; PULSE 84; RESP 16; TEMP 36.8; O2SAT 100
[2023-03-25] MEDS: Piperacil/Tazobactam 3.375 GM in 0.9% Normal Saline (50mL MB+) 50 ML IV (05:46)
[2023-03-25] MEDS: Acetaminophen 500 MG Tablet 1000 MG PO (05:50)
[2023-03-25 06:13] LABS: Absolute Lymphocyte Count 0.81 X10^3/uL (0.83-4.51); Absolute Neutrophil Count 9.5 X10^3/uL (2.0-7.7); Basophil# 0.03 X10^3/uL; Basophil% 0.3 % (0-1); Eosinophil# 0.09 X10^3/uL; Eosinophils% 0.8 % (0-5); Hematocrit 34.7 % (40-54); Hemoglobin 11.2 g/dL (13.0-16.5); Lymphocyte # 0.81 X10^3/ul (0.83-4.51); Lymphocyte % 7.2 % (19-41); Mean Corp Hgb Conc 32.3 g/dL (32-36); Mean Corpuscular Hgb 31.8 pg (27.0-32.0); Mean Corpuscular Volume 98.6 fL (80-94); Mean Platelet Vol. 8.5 fl (6.2-12.0); Monocyte# 0.63 X10^3/uL; Monocyte% 5.6 % (0-10); NRBC Flagged by Analyzer 0 % (0-5); Neutrophil # 9.51 X10^3/uL (2.7-7.7); Neutrophil % 84.8 % (47-70); Platelet Count 351 K/mm3 (150-450); RBC Distribution Width SD 50.9 fl (35.1-43.9); Red Blood Count 3.52 M/mm3 (4.6-6.2); White Blood Count 11.2 K/mm3 (4.4-11.0)
[2023-03-25 06:34] LABS: Anion Gap 3 (5-15); BUN 11 mg/dL (7-18); BUN/Creat Ratio 13.4 RATIO (10-20); Calcium,Total 8.4 mg/dL (8.5-10.1); Chloride 107 mmol/L (98-107); Creatinine, Serum 0.82 mg/dL (0.70-1.30); EST Glomerular Filtration Rate 98 mL/min (>60); Est Glom Filt Rate - Afr Amer 119 mL/min (>60); Estimated Creatinine Clearance 85.32 ml/min; Glucose 174 mg/dL (74-106); Potassium 3.4 mmol/L (3.5-5.1); Sodium Level 140 mmol/L (136-145)
[2023-03-25 09:42] VITALS: BP 141/77; PULSE 88; RESP 16; TEMP 36.9; O2SAT 96
[2023-03-25] MEDS: Atenolol 25 MG Tablet PO (09:47)
[2023-03-25] MEDS: Potassium Chloride Oral Tablet 20 MEQ 40 MEQ PO (09:48)
[2023-03-25] MEDS: Heparin Injection (Vial) 5,000 UNIT/ML VIAL 5000 UNIT SC (09:48)
--- NOTE | 2023-03-25 10:06 | PCM.PN.ID ---
Physical Exam Narrative Feeling better, no fever, no n/v/d. Const alert and no apparent distress General Appearance: cooperative Resp normal air movement and clear to auscultation bilaterally Cardio regular rate and regular rhythm GI soft to palpation, non-tender and non-distended Skin no rashes or lesions noted ID ID: Route of nutrition/ use of supplements: [] Nutritional Intake: [] IV Site: [] Jane Catheter: [] Assessment & Plan Assessment/Plan (1) Pelvic abscess: PLAN: Had radical prostatectomy in 12/2022. Now with large pelvic abscess, drain placed, gram stain showing heavy purulence and GNR. On vanc/zosyn. Lab unable to do cx due to lack of fluid. Pending repeat cx of drain fluid. Ok for home with 2 weeks po cipro/augmentin. Will need course extended if abscess is not resolved at end of 2 weeks. ID followup in 2 weeks. Will follow (2) History of prostate cancer:
--- NOTE | 2023-03-25 10:29 | DCINST_ITS ---
Discharge Instructions Diet Discharge Diet: No restrictions Activity Discharge Activity: Return to Normal Activity Weight Bearing Status: Full weight bearing Follow Up Care Test Results: Test results from this visit will be discussed in further detail at your follow- up appointment, if applicable. Discharge Plan Admission Admit Date/Time: 03/21/23 08:10 Primary Reason for Your Visit: pelvic abcess Attending Provider: Nehemiah Umanzor Primary Care Provider: Nehemiah Montenegro Consulting Providers: Paramjit Hernandez; Patrick Thompson; Mian Hernandez Instructions Patient Instructions: Kirill Tineo Drain Tube Dc, Post Op Drain Emptying Steps Discharge Orders/Prescriptions Prescriptions: New ciprofloxacin HCl [Cipro] 500 mg tablet 500 mg PO BID Qty: 30 0RF amoxicillin-pot clavulanate 875-125 mg tablet 1 tab PO BID Qty: 30 0RF Continued sumatriptan succinate 50 mg tablet 50 mg PO ONCE PRN (Reason: migraine headache) aspirin 81 MG tablet 81 mg PO DAILY@0800 tstd-4-lqx-dha-fish oil-flax-E [phone] vg-qv-iv-unit capsule 1 cap PO DAILY cinnamon bark [Cinnamon] 500 mg capsule 1,000 mg PO DAILY ascorbic acid (vitamin C) [Vitamin C] 500 mg tablet 1 g PO DAILY oxycodone 5 mg tablet 5 mg PO Q6H PRN (Reason: pain) 7 Days Qty: 14 0RF Hold Instructions: NOT taking docusate sodium [Colace] 100 mg capsule 100 mg PO BID Qty: 20 0RF Hold Instructions: not taking pravastatin 40 mg tablet 40 mg PO QHS Qty: 90 3RF atenolol 25 mg tablet 25 mg PO DAILY Qty: 90 3RF Discontinued ciprofloxacin HCl [Cipro] 500 mg tablet 500 mg PO Q12H 7 Days Qty: 14 0RF ciprofloxacin HCl [Cipro] 500 mg tablet 500 mg PO BID Qty: 20 0RF Referrals / Follow Up: Mian Hernandez MD [Med Staff - Active Staff] - Within 1 Week Nehemiah Montenegro DO [Primary Care Provider] - Within 1 Month Disposition Disposition (needs filled in before D/C Order can be placed): Home, Self Care
--- NOTE | 2023-03-25 10:33 | PCM.DC.SUM ---
Providers Date of Admission: 03/21/23 Date of Discharge: 03/25/23 Primary Care Physician: Dr. Nehemiah Montenegro, Consultations 03/23/23 08:34 Consult: Infectious Disease Routine Consulting Provider: Patrick Thompson Reason for Consult: ? seroma vs abcess EMERGENT Consult: No Notified: Yes Date Notified: 03/23/23 Time Notified: 08:35 Method of Notification: Verbal 03/23/23 09:54 Consult: Urology Routine Consulting Provider: Mian Hernandez Reason for Consult: seroma EMERGENT Consult: No Notified: Yes Date Notified: 03/23/23 Time Notified: 09:54 Method of Notification: Verbal Reason For Visit: SEPSIS Diagnosis Discharge Diagnosis (1) Pelvic abscess: Status: Acute (2) History of prostate cancer: Status: Acute Code(s): Z85.46 - Personal history of malignant neoplasm of prostate Plan 1. Sepsis secondary to infected seroma-exact organism unknown #2 infected seroma in the left inguinal area-exact organism unknown #3 essential hypertension-patient will remain on his present blood pressure medications, blood pressure will be monitored #4 hypokalemia-patient was given potassium today, labs will be rechecked #5 hyperlipidemia-patient remains on a statin Total clinical time spent by myself addressing the patient's medical issues, reviewing all of his data, and collaborating with patient's care team: 35 minutes Medications at Discharge Home Medications aspirin 81 mg tablet,delayed release 81 mg PO DAILY@0800 heart 09/12/20 sumatriptan succinate 50 mg tablet 50 mg PO ONCE PRN migraine headache 11/11/20 pravastatin 40 mg tablet 40 mg PO QHS #90 tabs 10/14/22 ascorbic acid (vitamin C) 500 mg tablet (Vitamin C) 1 g PO DAILY supplement 12/08/22 cinnamon bark 500 mg capsule (Cinnamon) 1,000 mg PO DAILY supplent 12/08/22 omeg3-epa 150 mg-dha 100 mg-fish oil-flaxseed oil 333 mg-E 61 unit cap 1 cap PO DAILY supplement 12/08/22 docusate sodium 100 mg capsule (Colace) 100 mg PO BID #20 caps 12/22/22 oxycodone 5 mg tablet 5 mg PO Q6H PRN pain 7 days #14 tabs 12/22/22 atenolol 25 mg tablet 25 mg PO DAILY #90 tabs 02/17/23 amoxicillin 875 mg-potassium clavulanate 125 mg tablet 1 tab PO BID #30 tabs 03/25/23 ciprofloxacin HCl 500 mg tablet (Cipro) 500 mg PO BID #30 tabs 03/25/23 Hospital Course Operations None Procedures None Summary of Care Provided Minutes Spent on Discharge: 32 Hospital Course: 72-year-old white male was seen in the emergency room at [facility] with complaints of fevers and generalized fatigue. He had been placed recently on Cipro after going to an urgent care who checked a urine sample and felt he had a UTI. Patient had been taking Cipro for 3 to 4 days without any symptom improvement. Lab obtained in the emergency room showed a white blood cell count at 16.5, chemistry panel revealed a creatinine of 1.44, BUN of 23, and a potassium of 3.4. Patient's lactic acid was elevated at 2.3, glucose was 228. Urinalysis showed 5-10 RBCs, 10-25 WBCs, and +[address] of the abdomen and pelvis was obtained, it showed a 9.8 cm diameter ring-enhancing cystic mass within the central-left pelvis with extensive surrounding fat stranding. This was consistent with an abscess. The case was discussed with general surgery by the emergency room physician, general surgery felt that the patient had a prostatectomy a few months ago and that the area of infection is the same area of the prostate and this was to be discussed with urology. The case was discussed with the patient's urologist who agreed with administration of IV antibiotics and admission to the hospital as well as interventional radiology consultation for drain placement of the abscess. Patient met criteria for sepsis and was admitted to a monitored bed, he was given IV antibiotics and seen in consultation by urology and interventional radiology. A drain was placed in the abscess area of the pelvis, infectious diseases was consulted for antibiotic coverage. Patient's status improved during his hospitalization, unfortunately the lab reported that there was not enough abscess specimen to culture and so the drainage was sent to the lab again for reculturing. Patient did have a positive blood culture for Bacteroides fragilis but infectious diseases felt that this was a contaminant. On 03/25/2023, patient was seen and examined: On examination he appeared in good health and spirits. Vital signs as documented. Skin warm and dry and without overt rashes. Neck without JVD, neck was supple, trachea midline, thyroid was normal. Lungs clear bilaterally, normal air movement was noted. Heart exam notable for regular rhythm, normal sounds and absence of murmurs, rubs or gallops. Abdomen unremarkable and without evidence of organomegaly, masses, or abdominal aortic enlargement. Bowel sounds are present, abdomen is not distended. Extremities nonedematous, no cyanosis was noted, no clubbing was noted. Neuro: Cranial nerves II through XII are grossly intact, no focal motor deficits were noted, sensation to light touch and pinprick intact, motor exam 5/5 throughout. Psych: Patient is alert and oriented x3, he does not appear anxious or depressed, he does not appear agitated. Patient was felt to be stable for discharge home on 03/25/2023. Weight / BMI Weight Weight: 105.188 kg Body Mass Index (BMI) 33.3 ABG / Lab / Microbiology Data 03/25/23 05:35 03/25/23 05:35 Laboratory: Laboratory Results - last 24 hr 03/25/23 05:35: WBC 11.2 H, RBC 3.52 L, Hgb 11.2 L, Hct 34.7 L, MCV 98.6 H, MCH 31.8, MCHC 32.3, RDW Std Deviation 50.9 H, RDW Coeff of Gerardo 14.0, Plt Count 351, MPV 8.5, Immature Gran % (Auto) 1.300 H, Neut % (Auto) 84.8 H, Lymph % (Auto) 7.2 L, [place] % (Auto) 5.6, Eos % (Auto) 0.8, Baso % (Auto) 0.3, Absolute Neuts (auto) 9.5 H, Absolute Lymphs (auto) 0.81 L, Nucleated RBC % 0, Sodium 140, Potassium 3.4 L, Chloride 107, Carbon Dioxide 30.0, Anion Gap 3 L, BUN 11, Creatinine 0.82, Estim Creat Clear Calc 85.32, Est GFR (MDRD) Af Amer 119, Est GFR (MDRD) Non-Af 98, BUN/Creatinine Ratio 13.4, Glucose 174 H, Calcium 8.4 L Microbiology: Microbiology 03/21/23 14:32 Fluid - Seroma Gram Stain - Final 03/21/23 14:32 Fluid - Seroma Body Fluid Culture - Final Culture exhibits no growth. 03/21/23 14:32 Fluid - Seroma Anaerobic Culture - Preliminary Gram negative devin 03/20/23 23:35 Blood Culture (Wb) - Anticubital Right Blood Culture - Final Bacteroides fragilis 03/20/23 23:38 Urine, Clean Catch Urine Culture - Final Culture exhibits no growth. D/C Instructions Discharge Diet: No restrictions Weight Bearing Status: Full weight bearing Meaningful Use Info Meaningful Use Diagnoses (Choose all that apply): None applicable Discharge Plan Admission Admit Date/Time: 03/21/23 08:10 Primary Reason for Your Visit: pelvic abcess Attending Provider: Nehemiah Umanzor Primary Care Provider: Nehemiah Montenegro Consulting Providers: Paramjit Hernandez; Patrick Thompson; Mian Hernandez Instructions Patient Instructions: Kirill Tineo Drain Tube Dc, Post Op Drain Emptying Steps Discharge Orders/Prescriptions Prescriptions: New ciprofloxacin HCl [Cipro] 500 mg tablet 500 mg PO BID Qty: 30 0RF amoxicillin-pot clavulanate 875-125 mg tablet 1 tab PO BID Qty: 30 0RF Continued sumatriptan succinate 50 mg tablet 50 mg PO ONCE PRN (Reason: migraine headache) aspirin 81 MG tablet 81 mg PO DAILY@0800 ownt-2-mhl-dha-fish oil-flax-E [phone] ws-fp-zv-unit capsule 1 cap PO DAILY cinnamon bark [Cinnamon] 500 mg capsule 1,000 mg PO DAILY ascorbic acid (vitamin C) [Vitamin C] 500 mg tablet 1 g PO DAILY oxycodone 5 mg tablet 5 mg PO Q6H PRN (Reason: pain) 7 Days Qty: 14 0RF Hold Instructions: NOT taking docusate sodium [Colace] 100 mg capsule 100 mg PO BID Qty: 20 0RF Hold Instructions: not taking pravastatin 40 mg tablet 40 mg PO QHS Qty: 90 3RF atenolol 25 mg tablet 25 mg PO DAILY Qty: 90 3RF Discontinued ciprofloxacin HCl [Cipro] 500 mg tablet 500 mg PO Q12H 7 Days Qty: 14 0RF ciprofloxacin HCl [Cipro] 500 mg tablet 500 mg PO BID Qty: 20 0RF Referrals / Follow Up: Mian Hernandez MD [Med Staff - Active Staff] - Within 1 Week Nehemiah Montenegro DO [Primary Care Provider] - Within 1 Month Disposition Disposition (needs filled in before D/C Order can be placed): Home, Self Care Charges/Coding Visit Charges Inpatient E&M: 20838 Disch Hosp >30min
--- NOTE | 2023-03-25 11:04 | CASEMGMT ---
RN CM into pt room, pt sitting up in chair. Discussed pt going home with drain. Pt feels he can manage this at home after instruction by nurse. Pt to dc on PO atb. Pt denies any homegoing needs.
== END 2023-03-25 12:30 | disposition home or self-care (01) | DRG 871 ==
LOC: ED 03-21 06:38 → ICU 03-21 07:32 → MS3 03-21 08:11
PROVIDERS: Nurse Practitioner Acute Care; Admitting Provider Internal Medicine; Emergency Provider Emergency Medicine; PCP Family Medicine; Visit Provider Internal Medicine
DX: A41.9 Sepsis, unspecified organism (principal); K65.1 Peritoneal abscess; T81.49XA Infection following a procedure, other surgical site, initial encounter; I10 Essential (primary) hypertension; E87.6 Hypokalemia; E78.00 Pure hypercholesterolemia, unspecified; I25.10 Atherosclerotic heart disease of native coronary artery without angina pectoris; E66.9 Obesity, unspecified; X58.XXXA Exposure to other specified factors, initial encounter; Z68.33 Body mass index [BMI] 33.0-33.9, adult; Z95.1 Presence of aortocoronary bypass graft; Z90.79 Acquired absence of other genital organ(s); Z79.82 Long term (current) use of aspirin; Z79.899 Other long term (current) drug therapy; Z85.46 Personal history of malignant neoplasm of prostate; Z86.16 Personal history of COVID-19
CPT/HCPCS: 36415; 71046; 74177; 75989; 80048; 80076; 80202; 81001; 83605; 83690; 83735; 84100; 85025; 85610; 85730; 87040; 87070; 87075; 87077; 87086; 87205; 88108; 88304; 88305; 88313; 89050; 94640; 94668; 97161; 97530; 97802; 97803; 99156; 99284; J7030; J7040; J7050; Q9967; A4216; J1940; J2405

== ENCOUNTER → 2023-03-29 | Outpatient (CLI) | payer MEDICARE, OTHER, SELFPAY ==
[2021-02-20 07:10] VITALS: BMI 33.5
[2023-03-29 11:44] LABS: PSA,Total- Diagnostic < 0.01 ng/mL (0.0-4.0)
[2023-03-29 12:18] LABS: Hemoglobin A1c 7.1 % (3.8-5.6)
== END | disposition home or self-care (01) ==
LOC: LAB 10:27
PROVIDERS: PCP Family Medicine; Referring Provider Nurse Practitioner; Visit Provider Nurse Practitioner
DX: C61 Malignant neoplasm of prostate (principal); E11.9 Type 2 diabetes mellitus without complications
CPT/HCPCS: 36415; 83036; 84153

== ENCOUNTER → 2023-09-12 | Outpatient (CLI) | payer MEDICARE, OTHER, SELFPAY ==
[2021-02-20 07:10] VITALS: BMI 33.5
[2023-09-12 09:53] LABS: AST(SGOT) 16 U/L (15-37); Alanine Aminotransfer ALT/SGPT 29 U/L (16-61); Albumin, Serum 3.6 g/dL (3.2-5.0); Alkaline Phosphatase 65 U/L (45-117); Bilirubin, Direct 0.11 mg/dL (0.00-0.30); Cholesterol 197 mg/dL (200); Globulin 3.5 g/dL (2.2-4.2); High Density Lipoprotein 45 mg/dL; PSA,Total- Diagnostic < 0.01 ng/mL (0.0-4.0); Protein, Total 7.1 g/dL (6.4-8.2); Triglycerides 210 mg/dL; Very Low Density Lipoprotein 42 mg/dL (5-40)
== END | disposition home or self-care (01) ==
LOC: LAB 08:07
PROVIDERS: Internal Medicine Cardiovascular Disease; PCP Family Medicine; Referring Provider Nurse Practitioner; Visit Provider Nurse Practitioner
DX: C61 Malignant neoplasm of prostate (principal); E78.00 Pure hypercholesterolemia, unspecified
CPT/HCPCS: 36415; 80061; 80076; 84153

== ENCOUNTER → 2024-03-09 | Outpatient (CLI) | payer MEDICARE, OTHER, SELFPAY ==
[2021-02-20 07:10] VITALS: BMI 33.5
[2024-03-09 10:05] LABS: PSA,Total- Diagnostic 0.01 ng/mL (0.0-4.0)
== END | disposition home or self-care (01) ==
PROVIDERS: PCP Family Medicine; Referring Provider Nurse Practitioner; Visit Provider Nurse Practitioner
DX: C61 Malignant neoplasm of prostate (principal)
CPT/HCPCS: 36415; 84153

== ENCOUNTER → 2024-03-19 | Outpatient (CLI) | payer MEDICARE, OTHER, SELFPAY ==
[2021-02-20 07:10] VITALS: BMI 33.5
[2024-03-19 11:17] LABS: AST(SGOT) 20 U/L (15-37); Alanine Aminotransfer ALT/SGPT 41 U/L (16-61); Albumin, Serum 3.6 g/dL (3.2-5.0); Alkaline Phosphatase 66 U/L (45-117); Bilirubin, Direct 0.11 mg/dL (0.00-0.30); Cholesterol 198 mg/dL (200); Globulin 3.6 g/dL (2.2-4.2); High Density Lipoprotein 45 mg/dL; Protein, Total 7.2 g/dL (6.4-8.2); Triglycerides 229 mg/dL; Very Low Density Lipoprotein 46 mg/dL (5-40)
== END | disposition home or self-care (01) ==
PROVIDERS: PCP Family Medicine; Referring Provider Internal Medicine Cardiovascular Disease; Visit Provider Internal Medicine Cardiovascular Disease
DX: E78.00 Pure hypercholesterolemia, unspecified (principal)
CPT/HCPCS: 36415; 80061; 80076

== ENCOUNTER → 2024-04-09 | Outpatient (CLI) | payer MEDICARE, OTHER, SELFPAY ==
[2021-02-20 07:10] VITALS: BMI 33.5
--- NOTE | 2024-04-09 06:28 | ECHOCS_ITS ---
Reason For Study: Dyspnea/SOB Procedure This was a 2D Doppler, Color Flow transthoracic echocardiogram. The study was technically difficult. Exam performed in department. Left Ventricle Normal LV size. Left ventricular systolic function is normal. The left ventricular ejection fraction is 65 %. Stage 1 diastolic dysfunction. No regional wall motion abnormalities noted. Right Ventricle Normal RV size. Normal systolic function. Atria Normal left atrium. Normal right atrium. Mitral Valve Status post mitral valve repair. Tricuspid Valve Normal tricuspid valve. Unable to estimate RV systolic pressure due to inadequate jet, pulmonary artery pressure probably normal. Aortic Valve Trisinus/trileaflet aortic valve. Pulmonic Valve Normal pulmonic valve. Great Vessels Normal aortic root. The pulmonary artery is normal size. Inferior vena cava collapse with respiration. Pericardium/Pleural No pericardial effusion. Medication 22 gauge I.V. with prn adaptor inserted into right arm. Diluted definity 1.5ml given slow IV push to enhance endocardial definition. MMode/2D Measurements & Calculations LVIDd: 5.1 cm IVSd: 1.2 cm Ao root diam: 3.5 cm LVIDs: 3.7 cm LVPWd: 1.1 cm RVDd: 4.0 cm FS: 26.8 % LAV(MOD-bp): 54.6 ml LVAd ap4: 36.0 cm2 SV(MOD-sp4): 68.6 ml LAV(MOD-bp) Indexed: 24.1 ml/m2 LVLd ap4: 8.6 cm SI(MOD-sp4): 30.2 ml/m2 LAV(MOD-sp2): 53.7 ml EDV(MOD-sp4): 124.1 ml LAV(MOD-sp4): 54.8 ml EDV(sp4-el): 127.8 ml LVAs ap4: 22.5 cm2 LVLs ap4: 7.7 cm ESV(MOD-sp4): 55.5 ml ESV(sp4-el): 56.0 ml EF(MOD-sp4): 55.3 % EF(sp4-el): 56.2 % SV(sp4-el): 71.8 ml LA A4 area: 18.8 cm2 LA dimension(2D): 5.2 cm RA A4 area: 14.2 cm2 TAPSE: 1.4 cm Time Measurements MV dec time: 0.36 sec Doppler Measurements & Calculations MV E max wagner: 94.2 cm/sec Lat Peak E' Wagner: 6.6 cm/sec Med Peak E' Wagner: 7.2 cm/sec MV A max wagner: 120.9 cm/sec E/E' lat: 14.4 E/E' med: 13.1 MV E/A: 0.78 MV V2 max: 168.9 cm/sec MV P1/2t max wagner: 126.5 cm/sec Ao V2 max: 115.2 cm/sec MV max P.4 mmHg MV P1/2t: 118.1 msec Ao max P.3 mmHg MV V2 mean: 90.6 cm/sec MV dec slope: 313.9 cm/sec2 Ao V2 mean: 77.7 cm/sec MV mean P.9 mmHg MVA(P1/2t): 1.9 cm2 Ao mean P.8 mmHg MV V2 VTI: 42.8 cm Ao V2 VTI: 24.3 cm AV (velocity ratio): 0.80 LV V1 max: 88.7 cm/sec MR max wagner: 487.7 cm/sec PA V2 max: 133.7 cm/sec LV V1 max P.1 mmHg MR max P.1 mmHg LV V1 mean P.7 mmHg LV V1 mean: 59.9 cm/sec LV V1 VTI: 19.6 cm ECHO/Echo Complete W/ Contrast Interpretation Summary Normal LV size. Left ventricular systolic function is normal. The left ventricular ejection fraction is 65 %. Stage 1 diastolic dysfunction. Status post mitral valve repair. Contrast injection was performed. Ordering Physician: Neftaly Chirinos Referring Physician: Neftaly Chirinos Performed By: Clem Loredo RCS
--- NOTE | 2024-04-09 09:29 | STRESSREP ---
Stress Test Report Date: 04/09/2024 Procedure: Pharmacologic stress nuclear imaging study Indications: Dyspnea Consent: Per the patient Procedure: The patient underwent pharmacologic (Regadenoson 0.4mg ) evaluation with a peak heart rate of 90 beats per minute (60%predicted maximal heart rate) and a peak blood pressure of 154/90 mmHg. The baseline ECG demonstrated sinus rhythm. The peak pharmacologic ECG demonstrated no ischemic changes. There were no cardiac dysrhythmias pretest, during pharmacologic infusion, or recovery. There was no complaint of chest discomfort during pharmacologic infusion or recovery. The patient was injected with 10.3 millicuries of technetium 99m Cardiolite and subsequently rest SPECT Cardiolite nuclear imaging was obtained in the horizontal long, vertical long, and short axis views. The patient underwent pharmacologic (Regadenoson) evaluation. The patient was injected with 32.0 millicuries of technetium 99m Cardiolite and subsequently stress SPECT Cardiolite nuclear imaging was obtained in the horizontal long, vertical long, and short axis views. A gated Cardiolite study at peak stress was obtained. The examination was stopped secondary to completion of protocol. Rest and stress SPECT Cardiolite nuclear imaging status post realignment, normalization, and attenuation correction demonstrate no fixed or reversible perfusion defect. There is end systolic thickening and brightening. The gated Cardiolite study demonstrates myocardial thickening and inward wall motion. The reported LVEF is 58%. Impression: 1. Pharmacologic (Regadenoson) evaluation 2. Peak pharmacologic ECG with no diagnostic ischemic changes. 3. There were no cardiac dysrhythmias pretest, during pharmacologic infusion, or recovery. 5. Rest and stress SPECT Cardiolite nuclear imaging demonstrate relative uniform tracer uptake and myocardial perfusion appearing within normal limits. 6. The gated Cardiolite study reports an LVEF of 58%. This note was generated with [employer]ation software. It may contain incorrect words, spelling, and punctuation that were not noted in checking the note before signing.
== END | disposition home or self-care (01) ==
LOC: CVS 06:28
PROVIDERS: PCP Family Medicine; Referring Provider Nurse Practitioner Family; Visit Provider Nurse Practitioner Family
DX: R06.02 Shortness of breath (principal); Z95.1 Presence of aortocoronary bypass graft
CPT/HCPCS: 78452; 93017; 93306; A9500; Q9957; A4216; C8929; J2785

== ENCOUNTER → 2024-09-07 | Outpatient (CLI) | payer MEDICARE, OTHER, SELFPAY ==
[2021-02-20 07:10] VITALS: BMI 33.5
[2024-09-07 09:50] LABS: PSA,Total- Diagnostic < 0.02 ng/mL (0.00-4.00)
== END | disposition home or self-care (01) ==
LOC: LAB 07:39
PROVIDERS: PCP Family Medicine; Referring Provider Urology; Visit Provider Urology
DX: C61 Malignant neoplasm of prostate (principal)
CPT/HCPCS: 36415; 84153

== ENCOUNTER → 2025-03-12 | Outpatient (CLI) | payer MEDICARE, OTHER, SELFPAY ==
[2021-02-20 07:10] VITALS: BMI 33.5
[2025-03-12 10:40] LABS: PSA,Total- Diagnostic < 0.02 ng/mL (0.00-4.00)
[2025-03-12 11:48] LABS: AST(SGOT) 31 U/L (<=37); Alanine Aminotransfer ALT/SGPT 33 U/L (<=46); Albumin, Serum 4.1 g/dL (3.4-4.8); Alkaline Phosphatase 75 U/L (40-129); Bilirubin, Direct 0.19 mg/dL (0.00-0.30); Cholesterol 198 mg/dL (<=200); Globulin 2.8 g/dL (2.2-4.2); Low Density Lipoprotein Calc. 117 mg/dL; Triglycerides 180 mg/dL; Very Low Density Lipoprotein 36 mg/dL (5-40); cholesterol:hdl ratio screen 4.42
== END | disposition home or self-care (01) ==
LOC: LAB 09:05
PROVIDERS: PCP Family Medicine; Referring Provider Internal Medicine Cardiovascular Disease; Visit Provider Urology
DX: C61 Malignant neoplasm of prostate (principal); E78.00 Pure hypercholesterolemia, unspecified
CPT/HCPCS: 36415; 80061; 80076; 84153